=== PATIENT | male | born 1945 | race Caucasian/White ===

== ENCOUNTER 2020-06-07 11:34 | Outpatient (REF) | payer MEDICARE, SELFPAY ==
[2020-06-07 11:38] LABS: MANUAL DIFF FLAG NO
[2020-06-07 12:18] LABS: Basophils Absolute Auto 0.1 X10*3/uL (0.0-0.2); Basophils Percent Auto 1.4 % (0-2); Eosinophils Absolute Auto 0.4 X10*3/uL (0.0-0.4); Eosinophils Percent Auto 5.3 % (0-4); Hemoglobin 15.4 g/dl (14.0-18.0); Imm Gran Abs Auto 0.04 X10*3/uL (0.00-0.03); Imm Gran Pct Auto 0.6 % (0.0-0.4); Lymphocytes Absolute Auto 2.3 X10*3/uL (1.2-4.9); Lymphocytes Percent Auto 34.5 % (20-40); Mean Corpuscular HGB Conc 34.2 g/dl (31.0-36.0); Mean Corpuscular Hemoglobin 33.1 pg (27.0-33.0); Mean Corpuscular Volume 96.8 fL (80-98); Mean Platelet Volume 10.2 fL (9.4-12.4); Monocytes Absolute Auto 0.7 X10*3/uL (0.1-1.2); Monocytes Percent Auto 10.5 % (2-11); Neutrophils Absolute Auto 3.2 X10*3/uL (2.0-8.3); Neutrophils Percent Auto 47.7 % (45-73); Platelet Count 196 X10*3/uL (160-400); Red Blood Count 4.65 X10*6/uL (4.60-5.80); White Blood Count 6.7 X10*3/uL (4.8-10.8)
[2020-06-07 12:30] LABS: Glucose Urine UA NEG (NEG); Leukocyte Esterase Urine NEG (NEG); Nitrite Urine NEG (NEG); Specific Gravity - Urine 1.015 (1.005-1.025); Urine Blood NEG (NEG); Urine Ketones NEG (NEG); Urine Protein NEG (NEG-TRACE)
[2020-06-07 12:36] LABS: Appearance Urine CLEAR; Color Urine YELLOW
[2020-06-07 12:58] LABS: Alanine Aminotransferase 18 U/L (0-40); Albumin Level 3.9 g/dL (3.5-5.0); Alkaline Phosphatase 65 U/L (39-117); Anion Gap 11 (12-20); Aspartate Amino Transferase 29 U/L (5-37); Bilirubin Total 1.1 mg/dL (0.0-1.0); Blood Urea Nitrogen 5 mg/dL (9-16); Calcium 8.6 mg/dL (8.4-10.2); Carbon Dioxide 29 mmol/L (22-29); Chloride 104 mmol/L (96-108); Cholesterol 210 mg/dL; Estimated Glomerular Filt Rate > 60; Glucose Fasting 106 mg/dL (60-99); HDL Cholesterol 58 mg/dL; LDL Cholesterol Calculated 123 mg/dl; Potassium 3.9 mmol/L (3.3-5.1); Sodium 140 mmol/L (135-145); Total Protein 5.7 g/dL (6.5-8.0); Triglycerides 148 mg/dL
[2020-06-07 13:17] LABS: PSA,Total (Free>4and<10) 1.03 ng/mL (0.00-4.00)
[2020-06-07 13:21] LABS: Creatinine Urine 88.92 mg/dL; Microalbum/Creatinine Ratio Ur 14.6 ug/mg cr
[2020-06-07 14:45] LABS: Estimated Average Glucose 97 mg/dL
[2020-06-07 16:09] LABS: Reflex LDLD? No
== END 2020-06-07 11:35 | disposition home or self-care (01) ==
LOC: HO.LNP 11:34
PROVIDERS: Visit Provider Internal Medicine
DX: R73.03 Prediabetes (principal); E78.00 Pure hypercholesterolemia, unspecified; E53.8 Deficiency of other specified B group vitamins; R79.89 Other specified abnormal findings of blood chemistry; D69.6 Thrombocytopenia, unspecified; Z12.5 Encounter for screening for malignant neoplasm of prostate
CPT/HCPCS: 80053; 80061; 81003; 82043; 83036; 84153; 84154; 85025

== ENCOUNTER 2020-06-17 10:23 | Outpatient (REF) | payer MEDICARE, SELFPAY ==
[2020-06-17 12:25] LABS: Folate 16.5 ng/mL (> or = 4.0); Vitamin B12 659 pg/mL (200-900)
== END 2020-06-17 10:24 | disposition home or self-care (01) ==
LOC: HO.LNP 10:23
PROVIDERS: Visit Provider Internal Medicine
DX: E53.8 Deficiency of other specified B group vitamins (principal)
CPT/HCPCS: 82607; 82746

== ENCOUNTER 2021-06-09 11:33 | Outpatient (REF) | payer MEDICARE, SELFPAY ==
[2021-06-09 11:37] LABS: MANUAL DIFF FLAG NO
[2021-06-09 12:05] LABS: Appearance Urine CLEAR; Color Urine YELLOW; Glucose Urine UA NEG (NEG); Leukocyte Esterase Urine NEG (NEG); Nitrite Urine NEG (NEG); Specific Gravity - Urine 1.015 (1.005-1.025); Urine Blood NEG (NEG); Urine Ketones NEG (NEG); Urine Protein NEG (NEG-TRACE)
[2021-06-09 12:09] LABS: Basophils Absolute Auto 0.1 X10*3/uL (0.0-0.2); Eosinophils Absolute Auto 0.3 X10*3/uL (0.0-0.4); Eosinophils Percent Auto 3.7 % (0-4); Hematocrit 44.6 % (42.0-52.0); Hemoglobin 14.9 g/dl (14.0-18.0); Imm Gran Abs Auto 0.04 X10*3/uL (0.00-0.03); Imm Gran Pct Auto 0.5 % (0.0-0.4); Lymphocytes Percent Auto 35.3 % (20-40); Mean Corpuscular HGB Conc 33.4 g/dl (31.0-36.0); Mean Corpuscular Hemoglobin 32.3 pg (27.0-33.0); Mean Corpuscular Volume 96.7 fL (80.0-98.0); Monocytes Absolute Auto 0.9 X10*3/uL (0.1-1.2); Monocytes Percent Auto 9.9 % (2-11); Neutrophils Absolute Auto 4.3 x10*3/uL (2.0-8.3); Neutrophils Percent Auto 49.6 % (45-73); Platelet Count 175 X10*3/uL (160-400); Red Blood Count 4.61 X10*6/uL (4.60-5.80); Red Cell Distribution Width 11.9 % (11.0-16.0); White Blood Count 8.6 X10*3/uL (4.8-10.8)
[2021-06-09 12:20] LABS: Estimated Average Glucose 103 mg/dL; Hemoglobin A1c % 5.2 %
[2021-06-09 12:21] LABS: Alanine Aminotransferase 15 U/L (0-40); Albumin Level 3.7 g/dL (3.5-5.0); Alkaline Phosphatase 67 U/L (39-117); Anion Gap 10 (12-20); Aspartate Amino Transferase 27 U/L (5-37); Bilirubin Total 1.7 mg/dL (0.0-1.0); Blood Urea Nitrogen 7 mg/dL (9-16); Carbon Dioxide 28 mmol/L (22-29); Chloride 103 mmol/L (96-108); Cholesterol 180 mg/dL; Estimated Glomerular Filt Rate > 60; Glucose Fasting 113 mg/dL (60-99); HDL Cholesterol 63 mg/dL; LDL Cholesterol Calculated 96 mg/dl; Potassium 4.2 mmol/L (3.3-5.1); Sodium 137 mmol/L (135-145); Total Protein 5.7 g/dL (6.5-8.0); Triglycerides 105 mg/dL
[2021-06-09 12:42] LABS: Creatinine Urine 118.63 mg/dL; Microalbum/Creatinine Ratio Ur 29.5 ug/mg cr; PSA,Total (Free>4and<10) 1.12 ng/mL (0.00-4.00)
[2021-06-09 12:56] LABS: Reflex LDLD? No
[2021-06-09 13:05] LABS: Folate 15.9 ng/mL (> or = 4.0); Vitamin B12 887 pg/mL (200-900)
== END 2021-06-09 11:34 | disposition home or self-care (01) ==
LOC: HO.LNP 11:33
PROVIDERS: PCP Internal Medicine; Visit Provider Internal Medicine
DX: Z00.00 Encounter for general adult medical examination without abnormal findings (principal); Z12.5 Encounter for screening for malignant neoplasm of prostate; I10 Essential (primary) hypertension; E53.8 Deficiency of other specified B group vitamins; R79.89 Other specified abnormal findings of blood chemistry; E78.00 Pure hypercholesterolemia, unspecified; D69.6 Thrombocytopenia, unspecified; R73.03 Prediabetes
CPT/HCPCS: 80053; 80061; 81003; 82043; 82607; 82746; 83036; 84153; 85025

== ENCOUNTER → 2021-06-16 08:46 | Outpatient (BNVA) | payer MEDICARE, SELFPAY | PROVIDERS: PCP Internal Medicine; Referring Provider Internal Medicine; Visit Provider Internal Medicine | DX: I48.91 Unspecified atrial fibrillation (principal); I10 Essential (primary) hypertension; F10.10 Alcohol abuse, uncomplicated | CPT/HCPCS: 93005; 99202 ==

== ENCOUNTER → 2021-07-27 09:24 | Outpatient (REF) | payer MEDICARE, SELFPAY ==
--- NOTE | 2021-07-27 09:29 | CA_ITS ---
Transthoracic Echocardiogram Patient (Last, First, Middle): Darci Paez, Gender: Male Date of : 1945 Age: 76 Procedure Date: 07/27/2021 Procedure Type: Transthoracic Echocardiogram Location: OP Height: 167.64 cm Weight: 65.77 kg BSA: 1.74 m2 Heart Rate: bpm BP: 140 / 78 mmHg Automatic Head Sawyer: JS Kessler MD: Burke Felix MD Public Safety Officer: Remberto Hood MD Symptoms: I48.91 - Unspecified atrial fibrillation Study Quality: Fair ECG Rhythm: Atrial Fibrillation Conclusions: - 1. Moderate LV systolic dysfunction with LVEF of 35-40% 2. Mild mitral regurgitation and trivial aortic regurgitation 3. Mildly elevated right ventricular systolic pressure 4. Mild pericardial effusion more prominent near the right-sided chambers Findings Left Ventricle Normal left ventricular cavity size. There is normal left ventricular wall thickness. The left ventricular systolic function is moderately decreased. The visually estimated ejection fraction is between 35-40%. There is moderate global hypokinesis. Diastolic function is indeterminate on the basis of available data. Right Ventricle Normal right ventricular cavity size and systolic function. Atria The left atrium is normal in size. Interatrial shunt cannot be excluded. The right atrium is normal in size. Aortic Valve Normal aortic valve structure and function. There is no aortic valve stenosis. There is trace (trivial) aortic valve regurgitation. Mitral Valve There is mild anterior and posterior mitral leaflet thickening. There is mild mitral valve regurgitation. There is no mitral valve stenosis. Pulmonic Valve The pulmonic valve was not well visualized. Tricuspid Valve Likely normal tricuspid valve structure and function. There is mild tricuspid valve regurgitation. Normal right atrial pressure. Mild pulmonary hypertension is present. Great Vessels All visible segments of the aorta are normal in size. The pulmonary artery was not well visualized. Venous The inferior vena cava is normal in size and collapses greater than 50% with inspiration. Pericardium/Pleural There is a small loculated pericardial effusion overlying the right ventricle and right atrium. Prior Study Comparison No prior study available for comparison. Measurements 2D Linear Measurements IVSd: 1.09 0.6-0.9/0.6-1.0 cm LVIDd: 4.94 3.9-5.3/4.2-5.9 cm LVIDd Index: 2.84 2.4-3.2/2.2-3.1 cm/m2 LVIDs: 3.87 2.0-3.6 cm LVPWd: 1.08 0.7-1.1 cm LA Diam: 3.40 2.7-3.8/3.0-4.0 cm LAIDs Index: 1.95 1.5-2.3 cm/m2 LV Mass: 248.43 67-162/88-224 g LV Mass Index: 142.77 43-95/49-115 g/m2 LVOT Diam: 2.00 3.0+(-)1.3 cm 2D Systolic Function EF 4C: 32.50 >55% EF 2C: 37.30 >55% EF BiP: 35.70 >55% Aortic Valve AoV Pk Pérez: 0.93 AoV Mn Pérez: 0.67 AoV VTI: 0.15 AoV Pk Grad: 3.00 Aov Mn Grad: 2.00 SINGH Cont.VTI: 2.45 LVOT LVOT Pk Pérez: 0.67 LVOT Mn Pérez: 0.48 LVOT VTI: 0.12 LVOT Pk Grad: 2.00 LVOT Mn Grad: 1.00 LVOT Diam: 2.00 LVOT Area: 3.14 Right Ventricle TAPSE (mm): 18.20 TVS' Pérez: 8.38 Tricuspid Valve TR Pk Pérez: 3.07 TR Pk Grad: 38.00 RA Press: 3.00 RVSP: 41.00 Great Vessels Aorta Sinus of Valsalva: 3.53 2.0-3.[address] Ridge: 3.06 1.7-3.4 cm Ao Asc: 3.50 2.1-3.4 cm Ao Arch: 2.70 Updated in Other Vendor System with Status of Final Remberto Hood MD electronically signed on 07/27/2021 3:33:59 PM with status of Final
--- NOTE | 2021-07-27 09:29 | HM_ITS ---
Conclusion: 1. Patient was monitor for total period of 2 days and 10 hours 2. Baseline rhythm is atrial fibrillation with average heart of 81 beats per minute with adequate overall rate control 3. Total of 7 pauses noted, longest pause of 3.1 seconds 4. Total of 6945 PVCs accounting for 2.44% of total PVCs accounting for frequent PVCs 5. No patient reported events MTDD
== END ==
LOC: HO.CARD 09:24
PROVIDERS: Visit Provider Internal Medicine
DX: I48.91 Unspecified atrial fibrillation (principal)
CPT/HCPCS: 93242; 93306

== ENCOUNTER → 2021-08-16 09:05 | Outpatient (BNVA) | payer MEDICARE, SELFPAY | PROVIDERS: PCP Internal Medicine; Referring Provider Internal Medicine; Visit Provider Internal Medicine | DX: I48.19 Other persistent atrial fibrillation (principal); I42.9 Cardiomyopathy, unspecified; I10 Essential (primary) hypertension; F10.10 Alcohol abuse, uncomplicated | CPT/HCPCS: 99212 ==

== ENCOUNTER → 2021-08-22 08:37 | Outpatient (REF) | payer MEDICARE, SELFPAY ==
--- NOTE | ~2021-08-22 | NM_ITS ---
Lexiscan Myocardial perfusion study Indication: Atrial fibrillation, cardiomyopathy, assess for coronary disease and ischemia Technique: The patient was brought in for a Lexiscan perfusion study on 08/22/2021 and was injected 0.4 mg of Lexiscan intravenously. Within a minute of this injection 25 mCi of sestamibi was given intravenously. Images were obtained using the SPECT gamma camera interlaced with the gating device. Images were obtained in supine position. Resting perfusion study was performed on 08/23/2021. Patient was administered 25 mCi of sestamibi intravenously at rest. Images were then obtained in supine position. Total DLP 77mGy-cm. Images were processed with the software and compared side to side in short axis, horizontal long axis and vertical long axis views. Findings: Raw acquisition was reviewed. The stress perfusion study showed diminished tracer uptake in the distal part of anterior wall/anterior septum. There is also diminished tracer uptake along the inferior wall. With CT attenuation correction, there is improvement and hence these could all be artifactual. The gated study shows diminished LV systolic function with calculated LVEF of 41%. LV cavity is normal in size. The gated study shows diminished wall thickening/contractility in the distal part of anteroseptal wall. Resting study shows minimally reduced tracer uptake in the apex and adjacent anterior septum. Gating at rest reveals normal wall motion with ejection fraction at 51%. The findings are consistent with reversible distal anteroseptal defect. There is also improvement with CT attenuation correction, but gating shows regional hypokinesis. Hence somewhat inconclusive. NM/NM cardiolite stress test Impression: 1. Myocardial perfusion imaging study shows possible ischemia in the distal anteroseptal wall. 2. Gated LVEF is 41% during stress and 51% during rest. 3. Transient ischemic dilatation not present. EKG component of the test reported separately.
--- NOTE | 2021-08-22 08:45 | CA_ITS ---
Acquisition Time: 2021-08-22 09:06:54 Total Exercise Time: 00:02:00 Test Indications: Abnormal ECG AFIB Medications: ELIQUIS LISINOPRIL METOPROLOL Protocol: LEXISCAN Max HR: 125 BPM 88% of Pred: 142 BPM Max BP: 158/098 mmHG Max Work Load: 1.0 METS Pharmacological stress test with Lexiscan injection, while sitting and kicking his legs, without anginal symptoms, with isolated PVCs, with normotensive response to injection, with nondiagnostic EKG for ischemia. Nuclear images pending. Test reviewed with Dr Hood. Referred By: Burke Felix Overread By: RICKI RIDER
[2021-08-22 15:28] LABS: Anion Gap 16 (12-20); Blood Urea Nitrogen 8 mg/dL (9-16); Calcium 9.6 mg/dL (8.4-10.2); Carbon Dioxide 24 mmol/L (22-29); Chloride 105 mmol/L (96-108); Estimated Glomerular Filt Rate > 60; Glucose Random 108 mg/dL (60-115); Potassium 5.1 mmol/L (3.3-5.1); Sodium 140 mmol/L (135-145)
== END ==
LOC: HO.CARD 08:37
PROVIDERS: Visit Provider Internal Medicine
DX: I42.9 Cardiomyopathy, unspecified (principal); I10 Essential (primary) hypertension
CPT/HCPCS: 36415; 78452; 80048; 93017; A9500; J0280; J2785

== ENCOUNTER → 2021-09-20 10:56 | Outpatient (BNVA) | payer MEDICARE, SELFPAY | PROVIDERS: PCP Internal Medicine; Referring Provider Internal Medicine; Visit Provider Internal Medicine | DX: I48.19 Other persistent atrial fibrillation (principal); I42.9 Cardiomyopathy, unspecified; I10 Essential (primary) hypertension; F10.10 Alcohol abuse, uncomplicated; Z79.01 Long term (current) use of anticoagulants; Z79.899 Other long term (current) drug therapy | CPT/HCPCS: 99212 ==

== ENCOUNTER 2021-10-11 08:49 | Outpatient (REF) | payer MEDICARE, SELFPAY ==
[2021-10-11 10:04] LABS: Hematocrit 47.8 % (42.0-52.0); Hemoglobin 15.9 g/dl (14.0-18.0); Mean Corpuscular HGB Conc 33.3 g/dl (31.0-36.0); Mean Corpuscular Hemoglobin 30.7 pg (27.0-33.0); Mean Corpuscular Volume 92.3 fL (80.0-98.0); Mean Platelet Volume 9.6 fL (9.4-12.4); Platelet Count 197 X10*3/uL (160-400); Red Blood Count 5.18 X10*6/uL (4.60-5.80); White Blood Count 9.9 X10*3/uL (4.8-10.8)
[2021-10-11 10:32] LABS: Anion Gap 13 (12-20); Blood Urea Nitrogen 9 mg/dL (9-16); Calcium 9.1 mg/dL (8.4-10.2); Carbon Dioxide 27 mmol/L (22-29); Chloride 101 mmol/L (96-108); Estimated Glomerular Filt Rate > 60; Glucose Random 108 mg/dL (60-115); Potassium 4.6 mmol/L (3.3-5.1); Sodium 136 mmol/L (135-145)
[2021-10-11 10:54] LABS: INTERNATIONAL NORM RATIO 1.2 (0.9-1.1); Prothrombin Time 13.2 SEC (9.9-13.0)
== END 2021-10-11 08:50 | disposition home or self-care (01) ==
LOC: HO.LAB 08:49
PROVIDERS: PCP Internal Medicine; Visit Provider Internal Medicine
DX: I42.9 Cardiomyopathy, unspecified (principal)
CPT/HCPCS: 36415; 80048; 85027; 85610

== ENCOUNTER → 2021-11-09 12:44 | Outpatient (BNVA) | payer MEDICARE, SELFPAY | PROVIDERS: PCP Internal Medicine; Referring Provider Internal Medicine; Visit Provider Nurse Practitioner Family | DX: I42.9 Cardiomyopathy, unspecified (principal); I48.19 Other persistent atrial fibrillation; I10 Essential (primary) hypertension; F10.10 Alcohol abuse, uncomplicated; Z79.01 Long term (current) use of anticoagulants; Z79.899 Other long term (current) drug therapy; Z98.890 Other specified postprocedural states | CPT/HCPCS: 99212 ==

== ENCOUNTER 2021-11-22 20:53 | Observation (INO) | payer MEDICARE, SELFPAY ==
--- NOTE | ~2021-11-22 | XR_ITS ---
EXAMINATION: XR CHEST CLINICAL INFORMATION: Seizure activity. COMPARISON: Chest x-ray 02/03/2016 TECHNIQUE: Frontal portable view of the chest was obtained. 2148 hours FINDINGS: No significant abnormality is noted involving the heart, lungs, mediastinum, bony thorax or soft tissues. XR/XR chest 1V IMPRESSION: Unremarkable examination.
--- NOTE | ~2021-11-22 | CT_ITS ---
EXAMINATION: CT head/brain wo con CLINICAL INFORMATION: Seizure activity COMPARISON: MRI of the brain without contrast 08/18/2008 TECHNIQUE: Contiguous axial imaging was performed from the skull base to vertex without intravenous administration of contrast. This CT examination was performed using dose optimization techniques as appropriate, variously including the following: *Automated exposure control *Adjustment of mA and/or kV according to patient size (this includes techniques or standardized protocols for targeted exams where dose is matched to indication/reason for exam; i.e. extremities or head) *Use of iterative reconstruction technique DLP: 703 mGy-cm FINDINGS: No acute osseous or soft tissue abnormality. Mild scattered paranasal sinus mucosal thickening. There is no evidence of acute intracranial hemorrhage or territorial infarction. No abnormal mass effect or midline shift is seen. [place] to white matter differentiation is well preserved. No extra-axial fluid collections are identified. No hydrocephalus. No significant volume loss. Patchy periventricular and deep white matter hypoattenuation is consistent with moderate small vessel ischemic changes. CT/CT head/brain wo con IMPRESSION: No acute intracranial abnormality including hemorrhage, mass effect, hydrocephalus, or acute territorial edematous infarction.
[2021-11-22 20:58] VITALS: BP 151/102; PULSE 83; RESP 15; TEMP 35.8; O2SAT 98; BMI 24.7
[2021-11-22 21:21] LABS: MANUAL DIFF FLAG NO
[2021-11-22 21:22] LABS: Basophils Absolute Auto 0.1 X10*3/uL (0.0-0.2); Basophils Percent Auto 0.8 % (0-2); Eosinophils Absolute Auto 0.3 X10*3/uL (0.0-0.4); Eosinophils Percent Auto 2.7 % (0-4); Hematocrit 44.2 % (42.0-52.0); Hemoglobin 15.2 g/dl (14.0-18.0); Imm Gran Abs Auto 0.04 X10*3/uL (0.00-0.03); Imm Gran Pct Auto 0.4 % (0.0-0.4); Lymphocytes Absolute Auto 2.1 X10*3/uL (1.2-4.9); Lymphocytes Percent Auto 20.1 % (20-40); Mean Corpuscular HGB Conc 34.4 g/dl (31.0-36.0); Mean Corpuscular Hemoglobin 31.1 pg (27.0-33.0); Mean Corpuscular Volume 90.6 fL (80.0-98.0); Mean Platelet Volume 9.4 fL (9.4-12.4); Monocytes Absolute Auto 1.3 X10*3/uL (0.1-1.2); Neutrophils Absolute Auto 6.7 x10*3/uL (2.0-8.3); Platelet Count 185 X10*3/uL (160-400); Red Blood Count 4.88 X10*6/uL (4.60-5.80); White Blood Count 10.4 X10*3/uL (4.8-10.8)
[2021-11-22 21:39] LABS: Alanine Aminotransferase 12 U/L (0-40); Albumin Level 4.1 g/dL (3.5-5.0); Alkaline Phosphatase 61 U/L (39-117); Anion Gap 16 (12-20); Aspartate Amino Transferase 21 U/L (5-37); Bilirubin Total 1.7 mg/dL (0.0-1.0); Blood Urea Nitrogen 7 mg/dL (9-16); Calcium 8.6 mg/dL (8.4-10.2); Carbon Dioxide 21 mmol/L (22-29); Chloride 103 mmol/L (96-108); Creatinine Clr Calc Pharmacy 48.1; Estimated Glomerular Filt Rate > 60; Glucose Random 118 mg/dL (60-115); Potassium 4.2 mmol/L (3.3-5.1); Sodium 136 mmol/L (135-145); Total Protein 6.1 g/dL (6.5-8.0)
--- NOTE | 2021-11-22 21:40 | ECG_ITS ---
Test Reason : SEIZURE Blood Pressure : / mmHG Vent. Rate : 095 BPM Atrial Rate : 000 BPM P-R Int : 000 ms QRS Dur : 084 ms QT Int : 314 ms P-R-T Axes : 000 -27 022 degrees QTc Int : 394 ms Atrial fibrillation Anteroseptal infarct (cited on or before 28-JUL-2008) Abnormal ECG When compared with ECG of 28-JUL-2008 11:06, Atrial fibrillation has replaced Sinus rhythm Vent. rate has increased BY 49 BPM Referred By: Rosina Eric Electronically Signed By:NEIDA JAIMES
[2021-11-22 21:41] VITALS: BP 160/112; PULSE 97; RESP 26; O2SAT 98
--- NOTE | 2021-11-22 21:58 | ED_ITS ---
HPI - Syncope General Chief Complaint: Seizure Stated Complaint: seizures Dr Scott called Time Seen by Provider: 11/22/21 21:39 Source: patient and family Mode of arrival: ambulatory Limitations: other (mild dementia) History of Present Illness HPI narrative: 76 yo male with hx of prior ETOH abuse, mild dementia, HTN, PAF on eliquis, cardiomyopathy was eating ice cream with his prior to arrival tonight when he felt a little dizzy and he slumped forwards. The states he wasn't responsive and his arms were stiff and shaking slightly no other movements, no incontinence no tongue biting. He felt his symptoms coming on. notes over the past few days he has had a headache and taking tylenol but denies fevers. MD complaint: loss of consciousness and collapsed Onset (ago): minute(s) (just prior to arrival ) Duration of episode: 1 -: minutes(s) Description of event: focal shaking Prodromal symptoms: lightheaded Witnessed: Yes - by Bystander Context: at rest Injuries sustained associated with event: none Current symptoms: back to baseline Treatments prior to arrival: none Related Data Home Medications Medication Instructions Recorded Confirmed cyanocobalamin (vitamin B-12) 1,000 mcg PO DAILY 06/16/21 11/09/21 1,000 mcg capsule folic acid 800 mcg tablet 0.8 mg PO DAILY 06/16/21 11/09/21 metoprolol succinate 50 mg 50 mg PO DAILY 06/16/21 11/09/21 tablet,extended release 24 hr Previous Rx's Medication Instructions Recorded lisinopril 20 mg tablet 20 mg PO DAILY #90 tabs 08/16/21 apixaban 5 mg tablet (Eliquis) 5 mg PO BID #60 tabs 09/05/21 Allergies Allergy/AdvReac Type Severity Reaction Status Date / Time No Known Allergies Allergy Verified 11/09/21 13:11 [No Known Allergies*] Review of Systems Review of Systems: Constitutional : No Fever, No Chills, No Fatigue ENT/Mouth : No sore throat, No Rhinorrhea Eyes: No Eye Pain, No Swelling, No Redness Cardiovascular : No Chest Pain, No SOB, No Dyspnea on Exertion Respiratory : No Cough, No Sputum Gastrointestinal : No Nausea, No Vomiting, No Diarrhea, No abdominal Pain Genitourinary : No Dysuria, No Urinary Frequency, No Hematuria, Musculoskeletal : No joint pain, No Myalgias, No Joint Swelling Skin : No Skin Lesions, No rash Neuro : No Weakness, No Numbness, pos Dizziness, positive Headache, pos loss of consciousness Psych : No Anxiety/Panic, No Depression Heme/Lymph: No Bruising, No Bleeding,No Lymphadenopathy Endocrine : No Polyuria, No Polydipsia All other systems reviewed and are negative [facility] Past Medical History Medical History Alcohol abuse Atrial fibrillation, new onset Cardiomyopathy Essential hypertension Persistent atrial fibrillation Surgical History History of appendectomy History of cardiac catheterization History of tonsillectomy Family History Family History Father No problems noted. Mother No problems noted. Social History Social History Alcohol intake: current Alcohol type: beer Patient Tobacco Use Status: Never used Tobacco Advance Directives: No Advance Directives Information Provided: No Physical Exam Vital Signs: Vital Signs: Last Vital Signs Temp 97.9 F 11/23/21 00:19 Pulse 86 11/23/21 00:19 Resp 14 11/23/21 00:19 BP 162/93 H 11/23/21 00:19 Pulse Ox 99 11/23/21 00:19 O2 Del Method 11/23/21 00:19 BMI result Body Mass Index 24.7 Appearance: Alert. Oriented X2 (time) at baseline. No acute distress. Eyes: Pupils equal, round and reactive to light. ENT: Pharynx normal. Neck: Normal inspection. Neck supple. CVS: irregular heart rate and rhythm. Pulses normal. Respiratory: No respiratory distress. Breath sounds normal. Abdomen: Soft and non-tender. Skin: Skin warm and dry. Normal skin color. Normal skin turgor. Extremities: No lower extremity edema. No calf ttp Neuro: Oriented X 2 (at baseline). No motor deficit. No sensory deficit. Course Course Course Narrative: given lactic acidosis could have had a seizure repeat trop and lactic acidosis pending repeat lactic pending, trop under delta CT head negative will admit for seizure vs syncope MDM - Syncope MDM Narrative Medical decision making narrative: 76 yo male with hx of prior ETOH abuse, mild dementia, HTN, PAF on eliquis, cardiomyopathy here wtih episode of loss of consciousness with preceding symptom of dizziness he does report a headache for the past few days. No trauma reported during event. He has not had chest pain/SOB. At this time he did not have full GTC just stiffening and jerking of the arms but not rhythmic he also did not have incontinence/tongue biting or postictal state. At this time will obtain CT head for ICH, EKG, labs, UA/CXR. Possible seizure vs syncope. Dispo per results and findings. Lab Data Result diagrams: 11/22/21 21:11 11/22/21 21:11 Labs: Lab Results 11/22/21 11/22/21 11/22/21 Range/Units 21:11 21:11 21:11 WBC 10.4 (4.8-10.8) X10*3/uL RBC 4.88 (4.60-5.80) X10*6/uL Hgb 15.2 (14.0-18.0) g/dl Hct 44.2 (42.0-52.0) % MCV 90.6 (80.0-98.0) fL MCH 31.1 (27.0-33.0) pg MCHC 34.4 (31.0-36.0) g/dl RDW 13.0 (11.0-16.0) % Plt Count 185 (160-400) X10*3/uL MPV 9.4 (9.4-12.4) fL Immature Gran % (Auto) 0.4 (0.0-0.4) % Neut % (Auto) 64.0 (45-73) % Lymph % (Auto) 20.1 (20-40) % [place] % (Auto) 12.0 H (2-11) % Eos % (Auto) 2.7 (0-4) % Baso % (Auto) 0.8 (0-2) % Lymph # (Auto) 2.1 (1.2-4.9) X10*3/uL [place] # (Auto) 1.3 H (0.1-1.2) X10*3/uL Eos # (Auto) 0.3 (0.0-0.4) X10*3/uL Baso # (Auto) 0.1 (0.0-0.2) X10*3/uL Abs Immat Gran (auto) 0.04 H (0.00-0.03) X10*3/uL Absolute Neuts (auto) 6.7 (2.0-8.3) x10*3/uL Absolute Nucleated RBC 0.000 (0.0-0.012) X10*3/uL Nucleated RBC % (auto) 0.0 (0.0-0.2) /100WBC PT (10.0-13.1) SEC INR (0.9-1.1) Sodium 136 (135-145) mmol/L Potassium 4.2 (3.3-5.1) mmol/L Chloride 103 (96-108) mmol/L Carbon Dioxide 21 L (22-29) mmol/L Anion Gap 16 (12-20) BUN 7 L (9-16) mg/dL Creatinine 1.10 (0.5-1.4) mg/dL Estim Creat Clear Calc 48.1 Estimated GFR > 60 Random Glucose 118 H (60-115) mg/dL Lactic Acid (0.5-2.0) mmol/L Lactic Acid F/U @ 2Hr (0.5-2.0) mmol/L Calcium 8.6 (8.4-10.2) mg/dL Magnesium 1.8 (1.6-2.6) mg/dL Total Bilirubin 1.7 H (0.0-1.0) mg/dL AST 21 (5-37) U/L ALT 12 (0-40) U/L Alkaline Phosphatase 61 (39-117) U/L Troponin I High Sens 6.8 (<3.5-35.0) ng/L Total Protein 6.1 L (6.5-8.0) g/dL Albumin 4.1 (3.5-5.0) g/dL Urine Color Urine Appearance Urine pH (5.0-8.0) Ur Specific [place] (1.005-1.025) Urine Protein (NEG-TRACE) MG/DL Urine Glucose (UA) (NEG) MG/DL Urine Ketones (NEG) MG/DL Urine Blood (NEG) Urine Nitrite (NEG) Ur Leukocyte Esterase (NEG) Urine Opiates Screen (Not Detect) Urine Fentanyl Screen (Not Detect) Ur Barbiturates Screen (Not Detect) Ur Phencyclidine Scrn (Not Detect) Ur Amphetamines Screen (Not Detect) U Benzodiazepines Scrn (Not Detect) Urine Cocaine Screen (Not Detect) U Marijuana (THC) Screen (Not Detect) Ethyl Alcohol < 10 mg/dL 11/22/21 11/22/21 11/22/21 Range/Units 22:18 22:18 22:50 WBC (4.8-10.8) X10*3/uL RBC (4.60-5.80) X10*6/uL Hgb (14.0-18.0) g/dl Hct (42.0-52.0) % MCV (80.0-98.0) fL MCH (27.0-33.0) pg MCHC (31.0-36.0) g/dl RDW (11.0-16.0) % Plt Count (160-400) X10*3/uL MPV (9.4-12.4) fL Immature Gran % (Auto) (0.0-0.4) % Neut % (Auto) (45-73) % Lymph % (Auto) (20-40) % [place] % (Auto) (2-11) % Eos % (Auto) (0-4) % Baso % (Auto) (0-2) % Lymph # (Auto) (1.2-4.9) X10*3/uL [place] # (Auto) (0.1-1.2) X10*3/uL Eos # (Auto) (0.0-0.4) X10*3/uL Baso # (Auto) (0.0-0.2) X10*3/uL Abs Immat Gran (auto) (0.00-0.03) X10*3/uL Absolute Neuts (auto) (2.0-8.3) x10*3/uL Absolute Nucleated RBC (0.0-0.012) X10*3/uL Nucleated RBC % (auto) (0.0-0.2) /100WBC PT 18.8 H (10.0-13.1) SEC INR 1.6 H (0.9-1.1) Sodium (135-145) mmol/L Potassium (3.3-5.1) mmol/L Chloride (96-108) mmol/L Carbon Dioxide (22-29) mmol/L Anion Gap (12-20) BUN (9-16) mg/dL Creatinine (0.5-1.4) mg/dL Estim Creat Clear Calc Estimated GFR Random Glucose (60-115) mg/dL Lactic Acid 2.1 H* (0.5-2.0) mmol/L Lactic Acid F/U @ 2Hr (0.5-2.0) mmol/L Calcium (8.4-10.2) mg/dL Magnesium (1.6-2.6) mg/dL Total Bilirubin (0.0-1.0) mg/dL AST (5-37) U/L ALT (0-40) U/L Alkaline Phosphatase (39-117) U/L Troponin I High Sens (<3.5-35.0) ng/L Total Protein (6.5-8.0) g/dL Albumin (3.5-5.0) g/dL Urine Color Urine Appearance Urine pH (5.0-8.0) Ur Specific [place] (1.005-1.025) Urine Protein (NEG-TRACE) MG/DL Urine Glucose (UA) (NEG) MG/DL Urine Ketones (NEG) MG/DL Urine Blood (NEG) Urine Nitrite (NEG) Ur Leukocyte Esterase (NEG) Urine Opiates Screen Not Detected (Not Detect) Urine Fentanyl Screen Not Detected (Not Detect) Ur Barbiturates Screen Not Detected (Not Detect) Ur Phencyclidine Scrn Not Detected (Not Detect) Ur Amphetamines Screen Not Detected (Not Detect) U Benzodiazepines Scrn Not Detected (Not Detect) Urine Cocaine Screen Not Detected (Not Detect) U Marijuana (THC) Screen Not Detected (Not Detect) Ethyl Alcohol mg/dL 11/22/21 11/23/21 11/23/21 Range/Units 22:51 00:35 00:35 WBC (4.8-10.8) X10*3/uL RBC (4.60-5.80) X10*6/uL Hgb (14.0-18.0) g/dl Hct (42.0-52.0) % MCV (80.0-98.0) fL MCH (27.0-33.0) pg MCHC (31.0-36.0) g/dl RDW (11.0-16.0) % Plt Count (160-400) X10*3/uL MPV (9.4-12.4) fL Immature Gran % (Auto) (0.0-0.4) % Neut % (Auto) (45-73) % Lymph % (Auto) (20-40) % [place] % (Auto) (2-11) % Eos % (Auto) (0-4) % Baso % (Auto) (0-2) % Lymph # (Auto) (1.2-4.9) X10*3/uL [place] # (Auto) (0.1-1.2) X10*3/uL Eos # (Auto) (0.0-0.4) X10*3/uL Baso # (Auto) (0.0-0.2) X10*3/uL Abs Immat Gran (auto) (0.00-0.03) X10*3/uL Absolute Neuts (auto) (2.0-8.3) x10*3/uL Absolute Nucleated RBC (0.0-0.012) X10*3/uL Nucleated RBC % (auto) (0.0-0.2) /100WBC PT (10.0-13.1) SEC INR (0.9-1.1) Sodium (135-145) mmol/L Potassium (3.3-5.1) mmol/L Chloride (96-108) mmol/L Carbon Dioxide (22-29) mmol/L Anion Gap (12-20) BUN (9-16) mg/dL Creatinine (0.5-1.4) mg/dL Estim Creat Clear Calc Estimated GFR Random Glucose (60-115) mg/dL Lactic Acid (0.5-2.0) mmol/L Lactic Acid F/U @ 2Hr 1.6 (0.5-2.0) mmol/L Calcium (8.4-10.2) mg/dL Magnesium (1.6-2.6) mg/dL Total Bilirubin (0.0-1.0) mg/dL AST (5-37) U/L ALT (0-40) U/L Alkaline Phosphatase (39-117) U/L Troponin I High Sens 8.9 (<3.5-35.0) ng/L Total Protein (6.5-8.0) g/dL Albumin (3.5-5.0) g/dL Urine Color YELLOW Urine Appearance CLEAR Urine pH 6.0 (5.0-8.0) Ur Specific [place] <= 1.005 (1.005-1.025) Urine Protein NEG (NEG-TRACE) MG/DL Urine Glucose (UA) NEG (NEG) MG/DL Urine Ketones NEG (NEG) MG/DL Urine Blood NEG (NEG) Urine Nitrite NEG (NEG) Ur Leukocyte Esterase NEG (NEG) Urine Opiates Screen (Not Detect) Urine Fentanyl Screen (Not Detect) Ur Barbiturates Screen (Not Detect) Ur Phencyclidine Scrn (Not Detect) Ur Amphetamines Screen (Not Detect) U Benzodiazepines Scrn (Not Detect) Urine Cocaine Screen (Not Detect) U Marijuana (THC) Screen (Not Detect) Ethyl Alcohol mg/dL ECG Data Attestation: I personally reviewed and interpreted this ECG as follows: ECG interpretation date: 11/22/21 ECG interpretation time: 22:10 Interpretation: Rate: 95 Rhythm: afib Kramer: left Normal QRS complex. ST T wave : normal no KATE qTC: normal prior studies: no acute ischemia The study has been interpreted contemporaneously by me. . Discharge Plan Discharge Clinical Impression: Acidosis, lactic, Syncope Patient Disposition: Admitted As Inpatient Prescriptions: No Action Eliquis 5 mg tablet 5 mg PO BID Qty: 60 5RF metoprolol succinate 50 mg tablet extended release 24 hr 50 mg PO DAILY folic acid 800 mcg tablet 0.8 mg PO DAILY cyanocobalamin (vitamin B-12) 1,000 mcg capsule 1,000 mcg PO DAILY lisinopril 20 mg tablet 20 mg PO DAILY Qty: 90 3RF
[2021-11-22 22:25] LABS: Ethanol < 10 mg/dL; Magnesium 1.8 mg/dL (1.6-2.6)
[2021-11-22 22:34] LABS: Troponin-I High Sensitivity 6.8 ng/L (<3.5-35.0)
[2021-11-22 22:35] VITALS: BP 157/108; PULSE 67; RESP 15; TEMP 36.9; O2SAT 99
[2021-11-22 22:56] LABS: Lactic Acid 2.1 mmol/L (0.5-2.0)
--- NOTE | 2021-11-22 22:56 | PC.NURSE ---
lactic acid of 2.1 reported to DAMON Jules
[2021-11-22 23:13] LABS: Amphetamine Screen Urine Not Detected (Not Detect); Barbiturates, Urine Not Detected (Not Detect); Benzodiazepines Screen Urine Not Detected (Not Detect); Cannabinoid Screen Urine Not Detected (Not Detect); Cocaine Screen Urine Not Detected (Not Detect); Fentanyl, urine Not Detected (Not Detect); Opiate Screen Urine Not Detected (Not Detect); Phencyclidine Screen Urine Not Detected (Not Detect)
[2021-11-22 23:13] LABS: INTERNATIONAL NORM RATIO 1.6 (0.9-1.1); Prothrombin Time 18.8 SEC (10.0-13.1)
[2021-11-22 23:31] LABS: Appearance Urine CLEAR; Color Urine YELLOW; Glucose Urine UA NEG (NEG); Leukocyte Esterase Urine NEG (NEG); Nitrite Urine NEG (NEG); Specific Gravity - Urine <= 1.005 (1.005-1.025); Urine Blood NEG (NEG); Urine Ketones NEG (NEG); Urine Protein NEG (NEG-TRACE)
[2021-11-22] MEDS: 0.9 % Sodium Chloride 500 ML IV (23:51)
[2021-11-23] VITALS (7 sets, daily range): BP systolic 151–171; BP diastolic 93–108; PULSE 72–93; RESP 14–20; TEMP 36.6–36.7; O2SAT 96–99
[2021-11-23 00:22] LABS: Reflex Lactate? Lactic Acid Added
[2021-11-23 01:50] LABS: ~Lactic Acid-LAB USE ONLY 1.6 mmol/L (0.5-2.0)
[2021-11-23 02:01] LABS: Troponin-I High Sensitivity 8.9 ng/L (<3.5-35.0)
[2021-11-23 02:40] LABS: COVID-19 Test Negative (Negative)
[2021-11-23] MEDS: Melatonin 3 MG TABLET 6 MG PO (02:55)
--- NOTE | 2021-11-23 08:52 | PHA.MEDREC ---
Pharmacy Consult ? Medication Reconciliation Pharmacy has completed the medication reconciliation. Patient unsure about home medications, called Davina ([phone]) who clarified home medications and dosing.
--- NOTE | 2021-11-23 09:32 | PC.NURSE ---
pt sitting on dge of bed eating bkfst. Son at bedside. Alert, pleasantly confused
[2021-11-23] MEDS: 0.9 % Sodium Chloride Flush 3 ML SYRINGE IVFLUSH (10:39)
--- NOTE | 2021-11-23 10:58 | PM.IMHP ---
History of Present Illness Date of Service: 11/23/21 Attending physician on admission: Zhang Salas Chief Complaint: syncope Patient with history of alcohol abuse (last drink 2 months ago), dementia, paroxysmal atrial fibrillation on eliquis, hypertension, and cardiomyopathy presented to the ED last night following a brief period of unconsciousness. His states they were eating ice cream when the patient slumped forward with his eyes rolling back with period of unconsciousness lasting several seconds. The patient does not recall the episode but has memory impairment at baseline secondary to dementia. His states the patient's limbs and upper body stiffened with slight shaking of the hands. There was no post ictal phase, incontinence, or tongue biting. No history of seizures. He denies having had similar episodes in the past and there has been no recurrence since presentation. He is feeling well currently in exam room with his son. Denies any palpitations, chest pain, sob, weakness, paresthesias. He follows with Dr. Felix in cardiology. Has not had any alcohol since initiation of eliquis. Had holter monitor in 08/05 with persistent afib and several long pauses up to 3.1sec and frequent PVCs. Last echo with EF 35-40%, no significnat valvular disease. In ER, lactic acid initially elevated at 2.1, improved to 1.6. Bilirubin 1.7, liver enzymes otherwise normal. Hematology and chemistries otherwise unremarkable. Head CT negative for actue intracranial abnormality. Chest xray unremarkable. Blood pressure have been slightly elevated, but he is hemodynamically stable. Review of Systems Review of Systems: General: No fevers, malaise, unintentional weight loss HEENT: No blurred vision or diplopia Cardiovascular: No chest pain, palpitations, or leg edema Respiratory: No shortness of breath, wheezing, cough GI: No abdominal pain, nausea, vomiting, diarrhea, constipation, melena, hematochezia : No dysuria or increased frequency Neuro: +syncope. No headaches, weakness, paresthesia, lightheadedness Skin: No rashes or lesions [facility] Medical History (Updated 11/23/21 @ 15:08 by JAIMIE Bonilla) Alcohol abuse Atrial fibrillation, new onset Cardiomyopathy Dementia Essential hypertension Persistent atrial fibrillation Family History Father No problems noted. Mother No problems noted. Surgical History History of appendectomy History of cardiac catheterization History of tonsillectomy Social History (Updated 11/23/21 @ 11:23 by JAIMIE Bonilla) Alcohol intake: former Patient Tobacco Use Status: Never used Tobacco Advance Directives: No Advance Directives Information Provided: No Meds Allergies Allergy/AdvReac Type Severity Reaction Status Date / Time No Known Allergies Allergy Verified 11/09/21 13:11 [No Known Allergies*] Active Medications: Current Medications Sodium Chloride (0.9 % Sodium Chloride Flush 3 Ml Syringe) 3 ml IVFLUSH [facility] Last Admin: 11/23/21 10:39 Dose: 3 ml Home Medications Medication Instructions Recorded Confirmed Last Taken Type acetaminophen 325 mg tablet 650 mg PO Q6H PRN Headache 11/23/21 11/23/21 Unknown History (Tylenol) apixaban 5 mg tablet (Eliquis) 1 tab PO BID 11/23/21 11/23/21 11/22/21 History cyanocobalamin (vitamin B-12) 1,000 mcg PO DAILY 11/23/21 11/23/21 11/22/21 History 1,000 mcg tablet lisinopril 20 mg tablet 2 tab PO DAILY 11/23/21 11/23/21 11/22/21 History metoprolol succinate 50 mg 1 tab PO DAILY 11/23/21 11/23/21 11/22/21 History tablet,extended release 24 hr Physical Exam Vital Signs and Narrative: Vital Signs: Last Vital Signs Temp 98.1 F 11/23/21 10:35 Pulse 85 11/23/21 10:47 Resp 20 11/23/21 10:35 BP 151/99 H 11/23/21 10:47 Pulse Ox 96 11/23/21 10:35 O2 Del Method 11/23/21 10:35 BMI result Body Mass Index 24.7 Constitutional - Awake and Alert, No apparent distress Eyes - PERRLA, EOMI Cardiovascular - S1S2, Irregularly irregular, normal rate, No edema Respiratory - Normal lung expansion, Normal respiratory effort, No respiratory distress, CTA bilaterally Gastrointestinal - NT / ND; +BS; No rebound or guarding Extremities - no calf tenderness bilaterally, no swelling Musculoskeletal - Normal inspection, normal ROM Skin - Warm/Dry Neurological - Alert & oriented x2, disoriented to time, CN II-XII in tact, 5/5 strength BUE and BLE Psychological - Appropriate affect Results Labs CBC and Chem 7: 11/22/21 21:11 11/22/21 21:11 Labs: Laboratory Results - last 24 hr 11/22/21 11/22/21 11/22/21 21:11 21:11 22:18 MCV 90.6 MCH 31.1 MCHC 34.4 RDW 13.0 Plt Count 185 MPV 9.4 Immature Gran % (Auto) 0.4 Neut % (Auto) 64.0 Lymph % (Auto) 20.1 [place] % (Auto) 12.0 H Eos % (Auto) 2.7 Baso % (Auto) 0.8 Lymph # (Auto) 2.1 [place] # (Auto) 1.3 H Eos # (Auto) 0.3 Baso # (Auto) 0.1 Abs Immat Gran (auto) 0.04 H Absolute Neuts (auto) 6.7 Absolute Nucleated RBC 0.000 Nucleated RBC % (auto) 0.0 PT 18.8 H INR 1.6 H Anion Gap 16 Estim Creat Clear Calc 48.1 Estimated GFR > 60 Random Glucose 118 H Lactic Acid Lactic Acid F/U @ 2Hr Calcium 8.6 Magnesium 1.8 Total Bilirubin 1.7 H AST 21 ALT 12 Alkaline Phosphatase 61 Total Protein 6.1 L Albumin 4.1 Urine Color Urine Appearance Urine pH Ur Specific [place] Urine Protein Urine Glucose (UA) Urine Ketones Urine Blood Urine Nitrite Ur Leukocyte Esterase Urine Opiates Screen Urine Fentanyl Screen Ur Barbiturates Screen Ur Phencyclidine Scrn Ur Amphetamines Screen U Benzodiazepines Scrn Urine Cocaine Screen U Marijuana (THC) Screen Ethyl Alcohol < 10 COVID-19 ([facility]) COVID-19 Clin Com 11/22/21 11/22/21 11/22/21 22:18 22:50 22:51 MCV MCH MCHC RDW Plt Count MPV Immature Gran % (Auto) Neut % (Auto) Lymph % (Auto) [place] % (Auto) Eos % (Auto) Baso % (Auto) Lymph # (Auto) [place] # (Auto) Eos # (Auto) Baso # (Auto) Abs Immat Gran (auto) Absolute Neuts (auto) Absolute Nucleated RBC Nucleated RBC % (auto) PT INR Anion Gap Estim Creat Clear Calc Estimated GFR Random Glucose Lactic Acid 2.1 H* Lactic Acid F/U @ 2Hr Calcium Magnesium Total Bilirubin AST ALT Alkaline Phosphatase Total Protein Albumin Urine Color YELLOW Urine Appearance CLEAR Urine pH 6.0 Ur Specific [place] <= 1.005 Urine Protein NEG Urine Glucose (UA) NEG Urine Ketones NEG Urine Blood NEG Urine Nitrite NEG Ur Leukocyte Esterase NEG Urine Opiates Screen Not Detected Urine Fentanyl Screen Not Detected Ur Barbiturates Screen Not Detected Ur Phencyclidine Scrn Not Detected Ur Amphetamines Screen Not Detected U Benzodiazepines Scrn Not Detected Urine Cocaine Screen Not Detected U Marijuana (THC) Screen Not Detected Ethyl Alcohol COVID-19 (GOPAL) COVID-19 [facility] [facility] Com 11/23/21 11/23/21 00:35 02:17 MCV MCH MCHC RDW Plt Count MPV Immature Gran % (Auto) Neut % (Auto) Lymph % (Auto) [place] % (Auto) Eos % (Auto) Baso % (Auto) Lymph # (Auto) [place] # (Auto) Eos # (Auto) Baso # (Auto) Abs Immat Gran (auto) Absolute Neuts (auto) Absolute Nucleated RBC Nucleated RBC % (auto) PT INR Anion Gap Estim Creat Clear Calc Estimated GFR Random Glucose Lactic Acid Lactic Acid F/U @ 2Hr 1.6 Calcium Magnesium Total Bilirubin AST ALT Alkaline Phosphatase Total Protein Albumin Urine Color Urine Appearance Urine pH Ur Specific [place] Urine Protein Urine Glucose (UA) Urine Ketones Urine Blood Urine Nitrite Ur Leukocyte Esterase Urine Opiates Screen Urine Fentanyl Screen Ur Barbiturates Screen Ur Phencyclidine Scrn Ur Amphetamines Screen U Benzodiazepines Scrn Urine Cocaine Screen U Marijuana (THC) Screen Ethyl Alcohol COVID-19 ([facility]OPAL) Negative COVID-19 Clin Com See Note ECG Interpretation: Imaging Radiologist's Impressions: Impressions Chest X-Ray 11/22/21 21:51 IMPRESSION: Unremarkable examination. Head CT 11/22/21 22:11 IMPRESSION: No acute intracranial abnormality including hemorrhage, mass effect, hydrocephalus, or acute territorial edematous infarction. Assessment and Plan (1) Syncope: Qualifiers: Syncope type: unspecified Qualified Code(s): R55 - Syncope and collapse Status: Acute (2) Persistent atrial fibrillation: Status: Acute (3) Essential hypertension: Status: Acute (4) Dementia: Status: Inactive Plan Patient with history of alcohol abuse (last drink 2 months ago), dementia, paroxysmal atrial fibrillation on eliquis, hypertension, and cardiomyopathy to be admitted to observation for evaluation of suspected syncopal episode. 1- Syncope vs seizure- etiology unclear at this time -There is a suspicion for seizure activity based on 's description of the event though no history. No focal neuro deficits on exam. Head CT negative. Electrolytes normal. No recent alcohol intake last 2 months. Neuro consult ordered -Admit to telemetry for continuous cardiac monitoring for any cardiac arrhythmia or tachy/marilu syndrome that could have caused episode. Holter monitor from 08/05 showed afib with several prolonged pauses and frequent PVCs -Patient does admit to poor water intake. Renal function is normal, dehydration unlikely cause. Continue oral hydration. -Orthostatics ordered -Seizure precautions 2- Persistent atrial fibrillation- stable -Continue eliquis for anticoagulation -Continue metoprolol, rate controlled -Continue following cardiology outpatient 3- Cardiomyopathy- stable -Most recent EF 35-40% -Continue metoprolol and lisinopril for bp management -Continue following cardiology outpatient 4- Hypertension- stable - Continue metoprolol and lisinopril 5- Dementia- baseline DVT prophylaxis- on eliquis Full code Quality Stroke Does the patient have a stroke diagnosis?: No VTE Prior VTE?: No VTE Risk Level:: Medical - moderate - high VTE Device Contraindication: Treatment Not Indicated VTE Drug Contraindication: N/A - Med Ordered
--- NOTE | 2021-11-23 15:30 | ECG_ITS ---
Test Reason : LOW HEART RATE Blood Pressure : / mmHG Vent. Rate : 070 BPM Atrial Rate : 000 BPM P-R Int : 000 ms QRS Dur : 084 ms QT Int : 406 ms P-R-T Axes : 000 -44 -09 degrees QTc Int : 438 ms Atrial fibrillation Left axis deviation Septal infarct (cited on or before 28-JUL-2008) Abnormal ECG When compared with ECG of 22-NOV-2021 21:55, No significant change was found Referred By: Zunilda Woodson Electronically Signed By:NEIDA JAIMES
--- NOTE | 2021-11-23 15:43 | PM.EVENT ---
Event Note Date of Service: 11/23/21 Event Note: ED notified of HR of 24 on monitor. Not maintained. HR returned to 70s following 4sec pause. Metoprolol held. Cards consult placed. Continue cardiac monitoring. Admit to [facility] as planned.
[2021-11-23] MEDS: lisinopriL 40 MG TABLET PO (16:21)
--- NOTE | 2021-11-23 18:24 | PC.NURSE ---
CARE ASSUMED AT THIS TIME. PT IN ROOM- FAMILY LEFT- CAMERA PLACED FOR PATIENT SAFETY
[2021-11-23] MEDS: traZODone HCL 50 MG TABLET PO (21:37)
[2021-11-23] MEDS: Apixaban 5 MG TABLET PO (21:37)
[2021-11-24] VITALS (8 sets, daily range): BP systolic 134–174; BP diastolic 81–124; PULSE 60–119; RESP 12–17; TEMP 36.6–36.9; O2SAT 95–96; BMI 24.9
--- NOTE | 2021-11-24 00:22 | PC.NURSE ---
Dr Merino notified about pt getting out of bed non-stop. requesting PRn medication
--- NOTE | 2021-11-24 00:52 | PC.NURSE ---
pt note secondary to pt care, previous shift RN did not activate pt camera, pt found out of bed in personal clothes, IV line had been ripped out, pt redirected back to bed, changed into hospital clothes, IV line placed, camera activated, pt placed back on monitor. To note, pt repeatedly taking himself off monitor and getting out of bed, MD aware.
[2021-11-24] MEDS: Haloperidol Lactate 5 MG/ML VIAL IVPUSH (00:57)
[2021-11-24] MEDS: Cyanocobalamin (Vitamin B-12) 1,000 MCG TABLET 1000 MCG PO (07:30)
[2021-11-24] MEDS: Apixaban 5 MG TABLET PO ×2 (07:30→19:58)
[2021-11-24] MEDS: lisinopriL 40 MG TABLET PO (07:30)
--- NOTE | 2021-11-24 07:32 | PC.NURSE ---
brought patient his breakfast tray this morning, got him new linens for bed. pt sitting comfortably in chair to eat breakfast. Tray removed when pt was done eating and pt is now back in bed watching tv.
[2021-11-24] MEDS: 0.9 % Sodium Chloride Flush 3 ML SYRINGE IVFLUSH ×3 (07:44→19:58)
--- NOTE | 2021-11-24 08:53 | PC.NURSE ---
PT PLEASANTLY CONFUSED, CAMERA REMAINS IN ROOM FOR SAFETY. HE ATE BREAKFAST AND TOOK HIS AM MED WITHOUT DIFFICULTY. HE ALTERNATES BETWEEN THE BED AND RECLINER.
--- NOTE | 2021-11-24 09:34 | PM.NEUROCN ---
History of Present Illness Data of Consult Service Date: 11/24/21 Primary Care Provider: DO NIKITA Johns Reason for consult: Seizure 76 years old man who probably has underlying history of dementia atrial fibrillation on anticoagulation was having ice cream with his when he was noted to be suddenly unresponsive slumped over with eyes rolled over for few seconds. He did not have any recollection and apparently there was no obvious reason such as dehydration. He denied that he ever had similar symptom but he was also not a good historian. He said that in the past he had multiple head injuries related to his work. There was probably also history of alcohol abuse but not during recent weeks. Review of Systems Review of Systems: No recent trauma or cold or flu-like illness PMFSH Past Medical History Medical History (Updated 11/24/21 @ 09:38 by Best Weems MD) Alcohol abuse Atrial fibrillation, new onset Cardiomyopathy Dementia Essential hypertension Persistent atrial fibrillation Family History Family History Father No problems noted. Mother No problems noted. Surgical History Surgical History History of appendectomy History of cardiac catheterization History of tonsillectomy Social History Social History (Updated 11/23/21 @ 11:23 by JAIMIE Bonilla) Alcohol intake: former Patient Tobacco Use Status: Never used Tobacco Advance Directives: No Advance Directives Information Provided: No Meds Allergies Allergy/AdvReac Type Severity Reaction Status Date / Time No Known Allergies Allergy Verified 11/09/21 13:11 [No Known Allergies*] Active Medications: Current Medications Acetaminophen (Acetaminophen 325 Mg Tablet) 650 mg PO Q6H PRN PRN Reason: Headache Apixaban (Apixaban 5 Mg Tablet) 5 mg PO BID [facility] Last Admin: 11/24/21 07:30 Dose: 5 mg Cyanocobalamin (Cyanocobalamin (Vitamin B-12) 1,000 Mcg Tablet) 1,000 mcg PO DAILY [facility] Last Admin: 11/24/21 07:30 Dose: 1,000 mcg Lisinopril (Lisinopril 40 Mg Tablet) 40 mg PO DAILY [facility]; Protocol Last Admin: 11/24/21 07:30 Dose: 40 mg Sodium Chloride (0.9 % Sodium Chloride Flush 3 Ml Syringe) 3 ml IVFLUSH QSHIFT [facility] Last Admin: 11/24/21 07:44 Dose: 3 ml Home Medications Medication Instructions Recorded Confirmed Last Taken Type acetaminophen 325 mg tablet 650 mg PO Q6H PRN Headache 11/23/21 11/23/21 Unknown History (Tylenol) apixaban 5 mg tablet (Eliquis) 1 tab PO BID 11/23/21 11/23/21 11/22/21 History cyanocobalamin (vitamin B-12) 1,000 mcg PO DAILY 11/23/21 11/23/21 11/22/21 History 1,000 mcg tablet lisinopril 20 mg tablet 2 tab PO DAILY 11/23/21 11/23/21 11/22/21 History metoprolol succinate 50 mg 1 tab PO DAILY 11/23/21 11/23/21 11/22/21 History tablet,extended release 24 hr Physical Exam Vital Signs: Vital Signs: Last Vital Signs Temp 97.9 F 11/24/21 06:02 Pulse 83 11/24/21 07:28 Resp 12 11/24/21 06:02 BP 162/97 H 11/24/21 08:53 Pulse Ox 96 11/24/21 06:02 O2 Del Method 11/23/21 23:29 BMI result Body Mass Index 24.7 Neuro: Other: He is alert and awake with normal spontaneity of speech fluency comprehension and affect. He did not know where he was and could not tell me where he lived stating that his can answer those questions. He said that she was taking care of him. He was following commands. Face was symmetrical. Visual garrido are full to threat. There was no nystagmus. There was no pronator drift. There was no focal weakness. Deep tendon reflexes were trace to absent with equivocal plantars. Results Labs CBC & Chem 7: 11/22/21 21:11 11/22/21 21:11 Labs: Noncontrast head CT revealed [id number] diffuse cerebral and cerebellar atrophy and [id number] chronic microvascular ischemic changes. Microbiology Microbiology Results: Microbiology 11/22/21 22:44 Blood - Venous Blood Culture - Preliminary No growth after 24 hours. 11/22/21 22:18 Blood - Venous Blood Culture - Preliminary No growth after 24 hours. Assessment and Plan (1) Complex partial seizure: Status: Acute 76 years old man with history of alcohol abuse but not during recent weeks, atrial fibrillation on anticoagulation, had an episode that was suggestive of complex partial seizure. I recommend an EEG an outpatient neurology follow-up. He should not drive and not be involved in any activity that could put his life in danger such as swimming alone. Procedures Date of Service Date of Service: 11/24/21
--- NOTE | 2021-11-24 09:38 | P.PNIM_ITS ---
Subjective Subjective Date of Service: 11/24/21 Interval History: Patient seen for follow up on syncope vs seizure that occured 2 nights ago. He has no complaints today but is cognitively impaired at baseline. Per nursing staff, patient has been pulling off telemetry leads and pulling out his IV line overnight. He got up and put outside clothes on saying he did not need the leads and IV so removed them. Review of Systems ROS limited based on patient cognition General: No fevers, malaise Cardiovascular: No chest pain, palpitations, or leg edema Respiratory: No shortness of breath, wheezing, cough GI: No abdominal pain, nausea, vomiting Neuro: No headaches, weakness, paresthesias Physical Exam Vital Signs: Vital Signs: Last Vital Signs Temp 97.9 F 11/24/21 06:02 Pulse 83 11/24/21 07:28 Resp 12 11/24/21 06:02 BP 162/97 H 11/24/21 08:53 Pulse Ox 96 11/24/21 06:02 O2 Del Method 11/23/21 23:29 BMI result Body Mass Index 24.7 Constitutional - Awake and Alert, No apparent distress Eyes - PERRLA, EOMI Cardiovascular - S1S2, RRR, No edema Respiratory - Normal lung expansion, Normal respiratory effort, No respiratory distress, CTA bilaterally Gastrointestinal - NT / ND; +BS; No rebound or guarding Extremities - no calf tenderness bilaterally, no swelling Skin - Warm/Dry Neurological - Alert and oriented to self and place. Disoriented to time (baseline) Objective Data Active Medications Acetaminophen (Acetaminophen 325 Mg Tablet) 650 mg PO Q6H PRN PRN Reason: Headache Apixaban (Apixaban 5 Mg Tablet) 5 mg PO BID [facility] Last Admin: 11/24/21 07:30 Dose: 5 mg Documented By: ROMIE Cyanocobalamin (Cyanocobalamin (Vitamin B-12) 1,000 Mcg Tablet) 1,000 mcg PO DAILY [facility] Last Admin: 11/24/21 07:30 Dose: 1,000 mcg Documented By: ROMIE Lisinopril (Lisinopril 40 Mg Tablet) 40 mg PO DAILY [facility]; Protocol Last Admin: 11/24/21 07:30 Dose: 40 mg Documented By: ROMIE Sodium Chloride (0.9 % Sodium Chloride Flush 3 Ml Syringe) 3 ml IVFLUSH QSHIFT [facility] Last Admin: 11/24/21 07:44 Dose: 3 ml Documented By: ROMIE Labs CBC & Chem 7: 11/22/21 21:11 11/22/21 21:11 Microbiology Microbiology Results: Microbiology 11/22/21 22:44 Blood Culture - Preliminary Blood - Venous No growth after 24 hours. 11/22/21 22:18 Blood Culture - Preliminary Blood - Venous No growth after 24 hours. Assessment and Plan (1) Loss of consciousness: Status: Acute (2) Hypertensive urgency: Status: Acute Plan Patient with history of alcohol abuse (last drink 2 months ago), dementia, persistent atrial fibrillation on eliquis, hypertension, and cardiomyopathy to be admitted to observation for evaluation of brief period of LOC. 1- Brief loss of consciousness- likely complex partial seizure vs cardiogenic syncope -Seen by neuro this morning- per neuro: possible complex partial seizure. Follow up outpt with Dr. Weems for EEG. No driving or activities that could put his life in danger (eg swimming) -3.4sec pause with HR 24 noted on telemetry last evening, not sustained, rate returned to 70s with follow EKG showing afib and without significant change from prior EKG. Unfortunately, patient continues removing telemetry leads overnight and today with no recurrent episodes noted. Spoke with cardiology. Given duration on pause, unlikely to be cause of a syncopal episode. Resume beta sergo. Telemetry for 1 night and follow up with cards outpt -Orthostatics negative -Continue seizure precautions 2- Hypertensive urgency- uncontrolled with SBP in 170s and diastolic in 100s - Reduce metoprolol to 25mg XL per cards and add amlodipine 10mg. Continue lisinopril 40mg 3- Persistent atrial fibrillation- stable -3.1 sec pause on telemetry as above -Continue eliquis for anticoagulation -Seen by cards. Resume toprol at 25mg daily for rate, uncontrolled at 119 -Continue following cardiology outpatient 4- Cardiomyopathy- stable -Most recent EF 35-40% -Continue metoprolol and lisinopril for bp management -Continue following cardiology outpatient 5- Dementia- baseline per DVT prophylaxis- on eliquis Full code Quality Stroke Does the patient have a stroke diagnosis?: No VTE Prior VTE?: No VTE Risk Level:: Medical - moderate - high VTE Device Contraindication: Treatment Not Indicated VTE Drug Contraindication: N/A - Med Ordered
--- NOTE | 2021-11-24 10:29 | P.CONCA_ITS ---
History of Present Illness History of Present Illness Date of Service: 11/24/21 Chief complaint: Syncope Narrative: This is a cardiology consultation regarding syncopal episode. He has a history of alcohol abuse but nothing in the last few weeks per documentation. Also has baseline dementia. Atrial fibrillation on Eliquis. Cardiomyopathy. He is generally followed up in the office. It seems that he is admitted to the ER following a brief period of unconsciousness. Apparently, the waiting as cream and then the patient's lung forward with eyes rolling back, lasting several seconds. Some stiffening of upper body with shaking of hands. Then evaluated in the ER. Currently, patient is quite confused and does not know where he is. [place] When questioned about specific symptoms like chest pain shortness of breath, he denies everything. He vaguely remembers coming to the ER for passing out but cannot say anything further. Review of Systems Review of Systems: Yes all other systems are reviewed and are negative Constitutional: Constitutional: Reports as per HPI Eyes: Eyes: Reports as per HPI ENT: Reports as per HPI Cardiovascular: Cardiovascular: Reports as per HPI, Denies acrocyanosis, Denies cool extremities, Denies chest pain, Denies leg edema, Denies lightheadedness, Reports Loss of Consciousness, Denies palpitations and Denies dyspnea Respiratory: Respiratory: Reports as per HPI, Reports no additional respirato ry complaints and Denies dyspnea Gastrointestinal: Gastrointestinal: Reports as per HPI and Reports no additional gastrointestinal complaints Genitourinary: Genitourinary: Reports no additional male genitourinary complaints and Reports as per HPI Musculoskeletal: Musculoskeletal: Reports no additional musculoskeletal complaints and Reports as per HPI Integumentary/Breasts: Skin/Breast: Reports system reviewed and no additional complaints, except as docu Neurologic: Reports system reviewed and no additional complaints, except as documented and Reports as per HPI Psychiatric: Psychiatric: Reports no additional psychiatric complaints and Reports as per HPI Endocrine: Endocrine: Reports no additional endocrine complaints, Reports as per HPI and Denies palpitations Hematologic/Lymphatic: Hematologic/Lymphatic: Reports no additional hematologic/lymphatic complaints and Reports as per HPI Allergic/Immunologic: Allergic/Immunologic: Reports no additional allergic/immunologic complaints and Reports as per HPI [facility] Past Medical History Medical History (Updated 11/24/21 @ 11:42 by Burke Felix MD) Alcohol abuse Atrial fibrillation, new onset Cardiomyopathy Dementia Essential hypertension Persistent atrial fibrillation Family History Family History Father No problems noted. Mother No problems noted. Surgical History Surgical History History of appendectomy History of cardiac catheterization History of tonsillectomy Social History Social History (Updated 11/23/21 @ 11:23 by JAIMIE Bonilla) Alcohol intake: former Patient Tobacco Use Status: Never used Tobacco Advance Directives: No Advance Directives Information Provided: No Meds Allergies Allergy/AdvReac Type Severity Reaction Status Date / Time No Known Allergies Allergy Verified 11/09/21 13:11 [No Known Allergies*] Active Medications: Current Medications Acetaminophen (Acetaminophen 325 Mg Tablet) 650 mg PO Q6H PRN PRN Reason: Headache Apixaban (Apixaban 5 Mg Tablet) 5 mg PO BID [facility] Last Admin: 11/24/21 07:30 Dose: 5 mg Cyanocobalamin (Cyanocobalamin (Vitamin B-12) 1,000 Mcg Tablet) 1,000 mcg PO DAILY [facility] Last Admin: 11/24/21 07:30 Dose: 1,000 mcg Lisinopril (Lisinopril 40 Mg Tablet) 40 mg PO DAILY [facility]; Protocol Last Admin: 11/24/21 07:30 Dose: 40 mg Metoprolol Succinate (Metoprolol Succinate Er 25 Mg Tab.Er.24h) 25 mg PO DAILY [facility]; Protocol Sodium Chloride (0.9 % Sodium Chloride Flush 3 Ml Syringe) 3 ml IVFLUSH QSHIFT [facility] Last Admin: 11/24/21 07:44 Dose: 3 ml Home Medications Medication Instructions Recorded Confirmed Last Taken Type acetaminophen 325 mg tablet 650 mg PO Q6H PRN Headache 11/23/21 11/23/21 Unknown History (Tylenol) apixaban 5 mg tablet (Eliquis) 1 tab PO BID 11/23/21 11/23/21 11/22/21 History cyanocobalamin (vitamin B-12) 1,000 mcg PO DAILY 11/23/21 11/23/21 11/22/21 History 1,000 mcg tablet lisinopril 20 mg tablet 2 tab PO DAILY 11/23/21 11/23/21 11/22/21 History metoprolol succinate 50 mg 1 tab PO DAILY 11/23/21 11/23/21 11/22/21 History tablet,extended release 24 hr Physical Exam 2 Vital Signs: Vital Signs: Last Vital Signs Temp 97.9 F 11/24/21 06:02 Pulse 83 11/24/21 07:28 Resp 12 11/24/21 06:02 BP 162/97 H 11/24/21 08:53 Pulse Ox 96 11/24/21 06:02 O2 Del Method 11/23/21 23:29 BMI result Body Mass Index 24.7 Const: General: comfortable and no acute distress Orientation/consciousness: patient oriented x3 HEENT: Other: Unremarkable Head: Yes normal to inspection Neck: Neck: Yes normal visual inspection Chest: Chest palpation & inspection: normal inspection of the chest Resp: Auscultation: clear to auscultation bilaterally Cardio: Palpation: normal PMI Heart sounds: S1 normal heart sound present, S2 normal heart sound present, no gallops, no murmurs and no rubs GI: Palpation (GI): Soft to palpation Back/Spine/Pelvis: Other: unremarkable Skin: General skin exam: no rashes or lesions noted Neuro: General: patient oriented x3 Extrem: General: Yes normal to inspection Psych: Mental Status: mental status grossly normal Objective Labs and Meds Result diagrams: 11/22/21 21:11 11/22/21 21:11 ECG Interpretation: EKG with atrial fibrillation at 70/Min. Leftward axis. Cannot exclude old septal infarct. Assessment and Plan (1) Syncope: Qualifiers: Syncope type: unspecified Qualified Code(s): R55 - Syncope and collapse Status: Acute Unclear if it is cardiac cardiogenic. There is evidence of some slowing of ventricular rate with pauses as much as 3.4 seconds but only brief. Nothing persistent. Currently not on telemetry as he is trying to pull things off. Neurology recommendations noted. Can keep on other day of telemetry. (2) Persistent atrial fibrillation: Status: Acute At home, he is taking metoprolol ER 50 mg daily. It was held yesterday but I think he will go fast and even though he is not on telemetry vital signs showed tachycardia. We can put him back on metoprolol at a small dose. Continue to monitor 1 more day on telemetry. Then outpatient Holter monitoring. (3) Cardiomyopathy: Status: Acute No significant coronary disease on catheterization to explain cardiomyopathy. Last EF was 35-40%. We will follow this up as an outpatient. Etiology could be alcohol related. Clinically, he does not have any congestive heart failure symptoms or signs. (4) Hypertensive urgency: Status: Acute Blood pressure is quite high since arrival. Diastolic is significantly elevated. Not clear if this plays any role in symptoms. Start amlodipine 10 mg daily. Plan Discussed with JAIMIE Bonilla. Procedures Date of Service Date of Service: 11/24/21
[2021-11-24] MEDS: Metoprolol Succinate ER 25 MG TAB.ER.24H PO (10:58)
[2021-11-24] MEDS: amLODIPine Besylate 10 MG TABLET PO (12:52)
--- NOTE | 2021-11-24 19:12 | PC.NURSE ---
PT REMAINED AWAKE AND LAERT WITHOUT ORIENTATION, HE WAS REDIRECTABLE IN THE ED SETTING AND WAS STEADY ON HIS FEET. HE ATE DINNER PRIOR TO TRANSFER TO FLOOR.
[2021-11-25] VITALS: BP 172/100; PULSE 116; RESP 18; TEMP 36.8; O2SAT 96
[2021-11-25] MEDS: dilTIAZem HCL 50 MG/10 ML VIAL 10 MG IVPUSH (00:08)
[2021-11-25 01:26] VITALS: BP 190/96
[2021-11-25] MEDS: hydrOXYzine HCL 25 MG TABLET PO (02:10)
[2021-11-25] MEDS: traZODone HCL 50 MG TABLET PO (02:10)
--- NOTE | 2021-11-25 02:13 | PC.NURSE ---
Midnight BP172/100, HR 116 (afib). Pt agitated and confused. Does not retain information. 1:1 at bedside for patients safety as patient is impulsive and is unsteady on his feet, constantly jumping up and trying to go home. Dr notified. 10mg IV cardizem given. Recheck, BP 190/96, HR up to 130's. Pt agitated and wanting to leave. Unable to reorient for long. Dr notified. Atarax and trazadone ordered and given. 1:1 with patient and bed alarm and camera on for pt safety. Will continue to monitor.
--- NOTE | 2021-11-25 02:54 | PC.NURSE ---
Around 0245, pt's hr dropped to 38 (afib). I woke patient up and his hr came up to 80's. BP 164/102. Pt states he feels fine. Will continue to monitor.
[2021-11-25 07:28] VITALS: BP 172/102; PULSE 106; RESP 16; TEMP 36.7; O2SAT 98
--- NOTE | 2021-11-25 09:05 | MHC.CDI.CONC ---
CDI Concurrent Query Documentation Clarification: PHYSICIAN'S DOCUMENTATION REQUEST Date of Query: 11/25/21904 Patient Name: Darci Paez Admit Date: 11/23/21 Dear Doctor, A review of the medical record indicates additional documentation may be needed. Please review below and update the documentation accordingly. Clinical Indicators Risk Factors/Clinical Indicators/Treatments PN: Dementia, baseline per . Nursing - patient continues to remove telemetry leads, getting out of bed, agitated and confused, trying to go home, unable to reorient. Camera for patients safety. IV Cardizem. If possible, please further clarify type of Dementia and any associated manifestations: Associated Manifestations: Dementia without behavioral disturbance Dementia with behavioral disturbance Aggressive behavior Combative behavior Confusion Dementia with wandering Encephalopathy, metabolic/toxic or other No associated manifestations Other ? please specify Unable to determine Use of terms such as suspected, likely, concern for, or probable (associated with a specific diagnosis that is being evaluated, monitored, or treated as if it exists) are acceptable and can be coded in the inpatient setting, when documented at the time of discharge. Thank you, Jessie Dejesus [facility], CDIS Extension: [phone] Please use your independent medical judgment in providing your response. THIS QUERY IS PART OF THE PERMANENT MEDICAL RECORD Provider Response: Other Other Diagnosis: Dementia without behavioral disturbance
[2021-11-25] MEDS: Cyanocobalamin (Vitamin B-12) 1,000 MCG TABLET 1000 MCG PO (09:11)
[2021-11-25] MEDS: amLODIPine Besylate 10 MG TABLET PO (09:12)
[2021-11-25] MEDS: Apixaban 5 MG TABLET PO (09:12)
[2021-11-25] MEDS: lisinopriL 40 MG TABLET PO (09:12)
[2021-11-25] MEDS: Metoprolol Succinate ER 25 MG TAB.ER.24H PO ×2 (09:12→12:10)
[2021-11-25] MEDS: 0.9 % Sodium Chloride Flush 3 ML SYRINGE IVFLUSH (09:14)
--- NOTE | 2021-11-25 09:59 | MHC.CM.PN ---
met with pt who lives with his pt had no previous servceis prior to admisison ,pt has a ride home when dcd pt is vax x 2 dc plan homew no servceis
--- NOTE | 2021-11-25 10:46 | PM.PNCARD ---
Subjective Subjective Date of Service: 11/25/21 Interval history: He states that he feels fine. No specific complaints. Denies any angina or shortness of breath or palpitations. Review of Systems Review of Systems Yes all other systems are reviewed and are negative Constitutional: Reports as per HPI Eyes: Reports as per HPI Reports as per HPI Cardiovascular: Reports as per HPI, Denies acrocyanosis, Denies cool extremities, Denies chest pain, Denies leg edema, Denies lightheadedness, Reports Loss of Consciousness, Denies palpitations and Denies dyspnea Respiratory: Reports as per HPI, Reports no additional respiratory complaints and Denies dyspnea Gastrointestinal: Reports as per HPI and Reports no additional gastrointestinal complaints Genitourinary: Reports no additional male genitourinary complaints and Reports as per HPI Musculoskeletal: Reports no additional musculoskeletal complaints and Reports as per HPI Skin/Breast: Reports system reviewed and no additional complaints, except as docu Reports system reviewed and no additional complaints, except as documented and Reports as per HPI Psychiatric: Reports no additional psychiatric complaints and Reports as per HPI Endocrine: Reports no additional endocrine complaints, Reports as per HPI and Denies palpitations Hematologic/Lymphatic: Reports no additional hematologic/lymphatic complaints and Reports as per HPI Allergic/Immunologic: Reports no additional allergic/immunologic complaints and Reports as per HPI Physical Exam Vital Signs: Last Vital Signs Temp 98.1 F 11/25/21 07:28 Pulse 106 H 11/25/21 07:28 Resp 16 11/25/21 07:28 BP 172/102 H 11/25/21 07:28 Pulse Ox 98 11/25/21 07:28 O2 Del Method 11/25/21 07:28 BMI result Body Mass Index 24.9 Const General: comfortable and no acute distress Orientation/consciousness: patient oriented x3 HEENT Other: Unremarkable Head: Yes normal to inspection Neck Neck: Yes normal visual inspection Chest Chest palpation & inspection: normal inspection of the chest Resp Auscultation: clear to auscultation bilaterally Cardio Palpation: normal PMI Heart sounds: S1 normal heart sound present, S2 normal heart sound present, no gallops, no murmurs and no rubs GI Palpation (GI): Soft to palpation Back/Spine/Pelvis Other: unremarkable Skin General skin exam: no rashes or lesions noted Neuro General: patient oriented x3 Extrem General: Yes normal to inspection Psych Mental Status: mental status grossly normal Objective Labs and Meds Result diagrams: 11/22/21 21:11 11/22/21 21:11 Progress Note: A&P Assessment and plan (1) Syncope: Status: Acute Assessment and Plan: Overall, highly doubt if cardiac etiology for syncopal episode. Upon admission, there were pauses as much as 3.4 seconds but nothing more. This is not considered to be significant while in atrial fibrillation. Currently, he is rather going fast. Hence resume the usual dose of beta-blockers. (2) Persistent atrial fibrillation: Status: Acute Assessment and Plan: Can resume the usual dose of beta-blockers as he is rather on the faster side. Continue anticoagulation without changes. (3) Cardiomyopathy: Status: Acute Assessment and Plan: No significant coronary disease on catheterization to explain cardiomyopathy. Last EF was 35-40%. We will follow this up as an outpatient. Etiology could be alcohol related. Clinically, he does not have any congestive heart failure symptoms or signs. (4) Hypertensive urgency: Status: Acute Assessment and Plan: Blood pressure continues to be high. Currently on lisinopril 40 mg daily. Amlodipine was added. Beta-sergo dose increased back to baseline should help. Otherwise, consider adding spironolactone. Further options will be hydralazine. Plan Discussed with JAIMIE Bonilla, . Time Spent With Patient Time: Total time spent is greater than 50% in coordination of care (as documented) at patient's floor/unit and/or counseling patient: 35min. Progress Note: Quality Stroke Does the patient have a stroke diagnosis?: No Procedures Date of Service Date of Service: 11/25/21
--- NOTE | 2021-11-25 11:49 | P.DS_ITS ---
DS: Providers Provider Date of Service: 11/25/21 Date of admission: 11/23/21 09:48 Date of discharge: 11/25/21 Primary care physician: Maged Scott DO Admitting clinician: Zhang Salas Consults: 11/23/21 14:51 Consult to Neurology Routine Consulting Provider: [facility] Reason for consultation: ?seizure Has provider been notified: No 11/23/21 15:45 Consult to Cardiology Routine Consulting Provider: Burke Felix Reason for consultation: syncope, sick sinus syndrome Has provider been notified: No Attending physician on discharge: Zhang Salas Discharging clinician: Zunilda Woodson DS: Diagnosis Discharge Diagnosis (1) Syncope: Status: Acute (2) Persistent atrial fibrillation: Status: Acute (3) Cardiomyopathy: Status: Acute (4) Hypertensive urgency: Status: Acute (5) Complex partial seizure: Status: Acute DS: Summary Hospital Course Hospital Course: HPI: Patient with history of alcohol abuse (last drink 2 months ago), dementia, paroxysmal atrial fibrillation on eliquis, hypertension, and cardiomyopathy presented to the ED last night following a brief period of unconsciousness. His states they were eating ice cream when the patient slumped forward with his eyes rolling back with period of unconsciousness lasting several seconds. The patient does not recall the episode but has memory impairment at baseline secondary to dementia. His states the patient's limbs and upper body stiffened with slight shaking of the hands. There was no post ictal phase, incontinence, or tongue biting. No history of seizures. He denies having had similar episodes in the past and there has been no recurrence since presentation. He is feeling well currently in exam room with his son. Denies any palpitations, chest pain, sob, weakness, paresthesias. He follows with Dr. Felix in cardiology. Has not had any alcohol since initiation of eliquis. Had holter monitor in 08/05 with persistent afib and several long pauses up to 3.1sec and frequent PVCs. Last echo with EF 35-40%, no significnat valvular disease. In ER, lactic acid initially elevated at 2.1, improved to 1.6. Bilirubin 1.7, liver enzymes otherwise normal. Hematology and chemistries otherwise unremarkable. Head CT negative for actue intracranial abnormality. Chest xray unremarkable. Blood pressure have been slightly elevated, but he is hemodynamically stable. Hospital Course: Patient seen and evaluated with cardiology and neurology. There were no recurrent episodes of loss of consciousness. He was on cardiac monitoring during the duration of admission. There were two episodes were short, non-sustained pauses with HR down to 24 lasting <5 seconds. Metoprolol was briefly held and then reintroduced as pauses felt to be related to afib, not the cause of bradycardia. He should continue following outpatient with cardiology. Neurology evaluated patient and felt this was a possible complex partial seizure. R ecommended to follow up outpatient with Dr. Weems for EEG and possible MRI. Patient had uncontrolled hypertension with episode of hypertensive urgency. Amlodipine 10mg and spironolactone 25mg added and he will continue these outpatient along with toprol 50mg and lisinopril 40mg daily. Status at Discharge Cognitive/behavioral status at discharge: baseline Time Spent with Patient Time attestation: Total time spent providing and/or coordinating discharge services: Discharge coordination time: Greater than 30 minutes Quality: Safe Use of Opioids Does Pt have an Active Cancer Diagnosis on the Problem List?: No Quality: Stroke Does the patient have a stroke diagnosis?: No Physical Exam Vital Signs: Vital Signs: Last Vital Signs Temp 98.1 F 11/25/21 07:28 Pulse 106 H 11/25/21 07:28 Resp 16 11/25/21 07:28 BP 172/102 H 11/25/21 07:28 Pulse Ox 98 11/25/21 07:28 O2 Del Method 11/25/21 07:28 BMI result Body Mass Index 24.9 Constitutional - Awake and Alert, No apparent distress Eyes - PERRLA, EOMI Cardiovascular - S1S2, RRR, No edema Respiratory - Normal lung expansion, Normal respiratory effort, No respiratory distress, CTA bilaterally Gastrointestinal - NT / ND; +BS; No rebound or guarding Extremities - no calf tenderness bilaterally, no swelling Skin - Warm/Dry Neurological - Alert & oriented x3, No focal deficit Psychological - Appropriate affect DS: Data Data Completed and Pending Labs on day of discharge: Preliminary micro results at discharge 11/22/21 22:44 Blood Culture - Preliminary Blood - Venous No growth after 48 hours. 11/22/21 22:18 Blood Culture - Preliminary Blood - Venous No growth after 48 hours. Discharge Plan Discharge Anticipated Discharge Date/Time: 11/25/21 11:13 Patient Disposition: Home, Self-Care Referrals: Magde Scott DO [Primary Care Provider] - 1 Week Best Weems MD [Physician] - 1 Week Remberto Hood MD [Physician] - 1 Week Discharge Medications: New amlodipine 10 mg Tablet 10 mg PO DAILY Qty: 14 0RF Protocol: Hold for SBP< HOLD for SBP < : 90 spironolactone 25 mg tablet 25 mg PO DAILY Qty: 14 0RF Continued metoprolol succinate 50 mg tablet extended release 24 hr 1 tab PO DAILY lisinopril 20 mg tablet 2 tab PO DAILY Eliquis 5 mg tablet 1 tab PO BID cyanocobalamin (vitamin B-12) 1,000 mcg Tablet 1,000 mcg PO DAILY acetaminophen [Tylenol] 325 mg Tablet 650 mg PO Q6H PRN (Reason: Headache) Discharge Orders: Discharge Order (Routine); Ordered 11/25/21 Ordered By: Zunilda Woodson Diet: Regular diet Activity on Discharge: As tolerated Stand Alone Forms: Patient Portal Discharge page Care Plan Goals: Further investigation into cause of loss of consciousness with neurology. Better blood pressure management and ongoing follow up [facility] cardiology for atrial fibrillation Health Concerns: You likely had a seizure causing your loss of counsciousness. Your blood pressure is uncontrolled. See below. Plan of Treatment: You will need to follow up with neurology outpatient for an EEG for further assessment of possible seizure activity. You should follow up with cardiology soon for your atrial fibrillation. Your blood pressure was uncontrolled throughout your stay. Spironolactone 25mg and amlodipine 10mg were added during your stay. You will continue these at home as well as your lisinopril 40mg and metoprolol 50mg XL. Assessment: Your loss of consciousness episode seems to possibly be related to seizure activity, specifically a complex partial seizure per neurology. You have very brief episodes where your heart rate drops which is consistent with your atrial fibrillation. After discussion with cardiology, this is not likely the cause of your loss of consciousness.
[2021-11-25 11:58] VITALS: BP 145/87; PULSE 122; RESP 16; TEMP 36.9; O2SAT 98
[2021-11-25] MEDS: Spironolactone 25 MG TABLET PO (12:11)
--- NOTE | 2021-11-25 13:58 | MHC.CM.PN ---
pt dcd home no skilled services ordered by
== END 2021-11-25 14:29 | disposition home or self-care (01) ==
LOC: HO.ED 11-23 02:13 → HO.EDOVER 11-23 10:01 → HO.IMC 11-24 16:30
PROVIDERS: Admitting Provider Physician Assistant; Emergency Provider Emergency Medicine; PCP Internal Medicine; Visit Provider Physician Assistant
DX: R55 Syncope and collapse (principal); I48.19 Other persistent atrial fibrillation; I42.9 Cardiomyopathy, unspecified; I16.0 Hypertensive urgency; G40.209 Localization-related (focal) (partial) symptomatic epilepsy and epileptic syndromes with complex partial seizures, not intractable, without status epilepticus; E87.2 Acidosis; I10 Essential (primary) hypertension; F03.90 Unspecified dementia, unspecified severity, without behavioral disturbance, psychotic disturbance, mood disturbance, and anxiety; Z20.822 Contact with and (suspected) exposure to COVID-19; F10.10 Alcohol abuse, uncomplicated; Y90.0 Blood alcohol level of less than 20 mg/100 ml; Z79.01 Long term (current) use of anticoagulants; Z79.899 Other long term (current) drug therapy
CPT/HCPCS: 36415; 70450; 71045; 80053; 80307; 81003; 82077; 83605; 83735; 84484; 85025; 85610; 87040; 87635; 93005; 96361; 96374; 96375; 99219; 99285

== ENCOUNTER → 2021-12-16 07:36 | Outpatient (REF) | payer MEDICARE, SELFPAY ==
--- NOTE | 2021-12-16 07:52 | HM_ITS ---
* Total monitoring time 3 days and 6 hours. * Underlying rhythm is atrial fibrillation. Average rate 79/Min. Range 46 to 143/Min. * About 5.6% the time, rate > 100/Min. * Pauses noted, longest is 3.6 seconds at 14:05. * Frequent ventricular ectopy. Brice of 1.4%. * No patient events. * Overall, reasonable rate control with slight tendency for tachycardia. MTDD
--- NOTE | 2021-12-16 07:52 | CA_ITS ---
Transthoracic Echocardiogram Patient (Last, First, Middle): Darci Paez, Gender: Male Date of : 1945 Age: 76 Procedure Date: 12/16/2021 Procedure Type: Transthoracic Echocardiogram Location: OP Height: 167.64 cm Weight: 64.86 kg BSA: 1.73 m2 Heart Rate: 75 bpm BP: 119 / 70 mmHg Bilingual Sales Consultant: SB Referring MD: Sybil Hernandes HEALTHCARE PROJECT MANAGER-C Rv Service Technician: Remberto Hood MD Symptoms: I42.9 - Cardiomyopathy, unspecified Study Quality: Adequate ECG Rhythm: Atrial Fibrillation Conclusions: - Normal LV systolic function with mild LVH with moderate LV systolic dysfunction with LVEF of 35-40% Findings Left Ventricle Normal left ventricular cavity size. There is mildly increased left ventricular wall thickness. The left ventricular systolic function is moderately decreased. The visually estimated ejection fraction is between 35 40%. Right Ventricle Normal right ventricular cavity size. There is borderline right ventricular systolic function. Pericardium/Pleural There is no evidence of pericardial effusion. Prior Study Comparison No significant change compared to prior study dated: 07/27/2021. Measurements 2D Linear Measurements IVSd: 1.28 0.6-0.9/0.6-1.0 cm LVIDd: 4.73 3.9-5.3/4.2-5.9 cm LVIDd Index: 2.73 2.4-3.2/2.2-3.1 cm/m2 LVIDs: 3.65 2.0-3.6 cm LVPWd: 1.15 0.7-1.1 cm LV Mass: 271.69 67-162/88-224 g LV Mass Index: 157.04 43-95/49-115 g/m2 2D Systolic Function EF 4C: 39.30 >55% EF 2C: 42.80 >55% EF BiP: 39.70 >55% Right Ventricle TAPSE (mm): 15.90 TVS' Pérez: 7.00 Tricuspid Valve TR Pk Pérez: 2.32 TR Pk Grad: 22.00 RA Press: 3.00 RVSP: 25.00 Updated in Other Vendor System with Status of Final Remberto Hood MD electronically signed on 12/19/2021 11:33:05 AM with status of Final
[2021-12-16 09:04] LABS: Anion Gap 14 (12-20); Blood Urea Nitrogen 8 mg/dL (9-16); Calcium 9.2 mg/dL (8.4-10.2); Carbon Dioxide 26 mmol/L (22-29); Chloride 100 mmol/L (96-108); Estimated Glomerular Filt Rate 51; Glucose Random 105 mg/dL (60-115); Potassium 5.2 mmol/L (3.3-5.1); Sodium 135 mmol/L (135-145)
== END ==
LOC: HO.CARD 07:36
PROVIDERS: PCP Internal Medicine; Visit Provider Internal Medicine
DX: I42.9 Cardiomyopathy, unspecified (principal); I48.19 Other persistent atrial fibrillation; I10 Essential (primary) hypertension; F10.10 Alcohol abuse, uncomplicated
CPT/HCPCS: 36415; 80048; 93242; 93308

== ENCOUNTER 2021-12-30 11:38 | Outpatient (REF) | payer MEDICARE, SELFPAY ==
[2021-12-30 13:50] LABS: Potassium 5.1 mmol/L (3.3-5.1)
== END 2021-12-30 11:39 | disposition home or self-care (01) ==
LOC: HO.10HDL 11:38
PROVIDERS: Visit Provider Internal Medicine
DX: E78.5 Hyperlipidemia, unspecified (principal)
CPT/HCPCS: 36415; 84132

== ENCOUNTER → 2022-01-10 14:34 | Outpatient (BNVA) | payer MEDICARE, SELFPAY | PROVIDERS: PCP Internal Medicine; Referring Provider Internal Medicine; Visit Provider Internal Medicine | DX: I48.19 Other persistent atrial fibrillation (principal); I42.9 Cardiomyopathy, unspecified; I10 Essential (primary) hypertension; F10.10 Alcohol abuse, uncomplicated | CPT/HCPCS: 99212 ==

== ENCOUNTER 2022-04-21 19:57 | Emergency (ER) | payer MEDICARE, SELFPAY ==
--- NOTE | 2022-04-21 | ECG_ITS ---
Test Reason : SEIZURE Blood Pressure : / mmHG Vent. 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
--- NOTE | ~2022-04-21 | CT_ITS ---
EXAMINATION: CT HEAD WITHOUT CONTRAST CLINICAL INFORMATION: Seizure, on blood thinners COMPARISON: 11/22/2021 TECHNIQUE: Contiguous axial imaging was performed from the skull base to vertex without intravenous administration of contrast. This CT examination was performed using dose optimization techniques as appropriate, variously including the following: *Automated exposure control *Adjustment of mA and/or kV according to patient size (this includes techniques or standardized protocols for targeted exams where dose is matched to indication/reason for exam; i.e. extremities or head) *Use of iterative reconstruction technique DLP: 640 mGy-cm FINDINGS: There is no midline shift. There is no mass effect. There is no hemorrhage. The basal cisterns appear patent. The posterior fossa is grossly within normal limits. There is no extra-axial collection. Scattered white matter ischemic changes and atrophy are noted. Sinuses are grossly clear. CT/CT head/brain wo IV con IMPRESSION: Negative acute noncontrast CT the brain. Atrophy and white matter ischemic changes noted.
[2022-04-21 20:05] VITALS: BP 142/62; PULSE 72; O2SAT 100
[2022-04-21 20:06] VITALS: BP 167/106; PULSE 77; RESP 11; O2SAT 100; BMI 24.1
--- NOTE | 2022-04-21 20:19 | PC.NURSE ---
Pt oriented to self, place, situation, not to time. States having 'dizzy spells' and 'not feeling well'. Denies having any pain.
[2022-04-21 20:21] VITALS: PULSE 83; RESP 14
[2022-04-21 20:47] LABS: MANUAL DIFF FLAG NO
[2022-04-21 20:48] LABS: Basophils Absolute Auto 0.1 X10*3/uL (0.0-0.2); Basophils Percent Auto 0.5 % (0-2); Eosinophils Absolute Auto 0.1 X10*3/uL (0.0-0.4); Eosinophils Percent Auto 1.2 % (0-4); Hematocrit 45.1 % (42.0-52.0); Hemoglobin 15.2 g/dl (14.0-18.0); Imm Gran Abs Auto 0.08 X10*3/uL (0.00-0.03); Imm Gran Pct Auto 0.8 % (0.0-0.4); Lymphocytes Absolute Auto 2.2 X10*3/uL (1.2-4.9); Lymphocytes Percent Auto 22.7 % (20-40); Mean Corpuscular HGB Conc 33.7 g/dl (31.0-36.0); Mean Corpuscular Hemoglobin 30.8 pg (27.0-33.0); Mean Corpuscular Volume 91.5 fL (80.0-98.0); Mean Platelet Volume 9.5 fL (9.4-12.4); Monocytes Percent Auto 10.6 % (2-11); Neutrophils Absolute Auto 6.3 x10*3/uL (2.0-8.3); Neutrophils Percent Auto 64.2 % (45-73); Platelet Count 222 X10*3/uL (160-400); Red Blood Count 4.93 X10*6/uL (4.60-5.80); Red Cell Distribution Width 12.1 % (11.0-16.0); White Blood Count 9.8 X10*3/uL (4.8-10.8)
[2022-04-21 21:04] LABS: Alanine Aminotransferase 29 U/L (0-40); Albumin Level 3.8 g/dL (3.5-5.0); Alkaline Phosphatase 56 U/L (39-117); Anion Gap 13 (12-20); Aspartate Amino Transferase 45 U/L (5-37); Bilirubin Total 1.3 mg/dL (0.0-1.0); Blood Urea Nitrogen 11 mg/dL (9-16); Carbon Dioxide 28 mmol/L (22-29); Chloride 101 mmol/L (96-108); Creatinine Clr Calc Pharmacy 43.7; Estimated Glomerular Filt Rate 59; Glucose Random 101 mg/dL (60-115); Potassium 4.9 mmol/L (3.3-5.1); Sodium 137 mmol/L (135-145); Total Protein 5.8 g/dL (6.5-8.0)
[2022-04-21 21:32] LABS: IDNOW Serial# 55D5AD1C; Influenza A Positive (Negative); Influenza B2 Negative (Negative)
[2022-04-21 21:34] LABS: COVID-19 Test Negative (Negative); IDNOW Serial# 6674DD1D
--- NOTE | 2022-04-21 21:59 | ED.GENADULT ---
HPI - General Adult General Chief complaint: Seizure Stated complaint: Seizures per EMS Time Seen by Provider: 04/21/22 20:51 Source: patient, family () and EMS Mode of arrival: EMS History of Present Illness HPI narrative: 77-year-old male states that he takes his medication every day and also drinks ?a 6 pack every day? but states that he has not had an alcoholic drink in 2 days. Patient's told EMS that he seemed ?off? and went on to apparently describe a [place] seizure like symptoms that occurred at 18:00, 1900, and 1930. Patient has a history of atrial fibrillation, dementia, hypertension. And according to the triage note has no history of seizures but on review of patient's problem list and prior documentation. EMS did not appreciate any seizure-like activity, patient has had no seizures since arrival here to the emergency room. Related Data Home Medications Medication Instructions Recorded Confirmed acetaminophen 325 mg tablet 650 mg PO Q6H PRN Headache 11/23/21 01/10/22 (Tylenol) cyanocobalamin (vitamin B-12) 1,000 mcg PO DAILY 11/23/21 01/10/22 1,000 mcg tablet apixaban 5 mg tablet (Eliquis) 5 mg PO BID 01/10/22 01/10/22 metoprolol succinate 50 mg 50 mg PO DAILY 01/10/22 01/10/22 tablet,extended release 24 hr Previous Rx's Medication Instructions Recorded lisinopril 40 mg tablet 40 mg PO DAILY #90 tabs 04/11/22 oseltamivir 30 mg capsule (Tamiflu) 30 mg PO BID 5 days #10 caps 04/21/22 Allergies Allergy/AdvReac Type Severity Reaction Status Date / Time No Known Allergies Allergy Verified 01/10/22 14:36 [No Known Allergies*] Review of Systems Review of Systems: Pertinent positives and negatives as stated in HPI. [facility] Past Medical History Source: nursing notes reviewed Medical History Alcohol abuse Atrial fibrillation, new onset Cardiomyopathy Dementia Essential hypertension Persistent atrial fibrillation Surgical History History of appendectomy History of cardiac catheterization History of tonsillectomy Family History Family History Father No problems noted. Mother No problems noted. Social History Social History Alcohol intake: former Patient Tobacco Use Status: Never used Tobacco Smoked in Last 30 Days: No Use of substances other than those prescribed or required for medical reasons: No Advance Directives: No Advance Directives Information Provided: Yes service: No Physical Exam ED Vital Signs: Vital Signs - 24 hr 04/21/22 20:06 04/21/22 20:21 Pulse Rate 77 Pulse Rate [Automated] 83 Respiratory Rate 11 L 14 Blood Pressure 167/106 H Pulse Oximetry 100 BMI result Body Mass Index 24.1 VITAL SIGNS: Reviewed. GENERAL: Well developed, well nourished, in no acute distress. HEAD: Normocephalic/atraumatic EYES: PERRLA, EOMI EARS: Ext canals without abnormality OROPHARYNX: no oral lesions noted, posterior pharynx clear LUNGS: Normal breath sounds. No adventitious sounds or accessory muscle use. SpO2<100> CARDIOVASCULAR: Regular rate and rhythm without noted murmurs ABDOMEN: Soft, non-tender, non-distended with bowel sounds. MUSCULOSKELETAL: No tenderness, deformities, or effusions noted on gross inspection. EXTREMITIES: No cyanosis, clubbing or edema. SKIN: Inspection of the skin reveals no rashes NEUROLOGIC: Alert and oriented x 2. Strength and sensation to light touch were grossly intact x 4, cranial nerves 2-12 are grossly intact. Medical Decision Making Medical Decision Making [facility] Narrative: 77-year-old male with reports by family being ?off? and has a history of dementia. I have reviewed and interpreted the workup as significant for influenza a viral infection, CT scan negative for any intracranial pathology, no evidence of bacterial infection, anemia or electrolyte derangement. Patient is otherwise stable for discharge to home. Differential Diagnosis Differential Diagnoses: The differential diagnosis associated with the presentation includes Possible pathogens, and anemia Lab Data [facility] Lab Attestation statement: I reviewed the patient's lab results. Please see the discussion above 04/21/22 20:41 04/21/22 20:41 Labs: Lab Results 04/21/22 04/21/22 04/21/22 Range/Units 20:41 20:41 21:07 WBC 9.8 (4.8-10.8) X10*3/uL RBC 4.93 (4.60-5.80) X10*6/uL Hgb 15.2 (14.0-18.0) g/dl Hct 45.1 (42.0-52.0) % MCV 91.5 (80.0-98.0) fL MCH 30.8 (27.0-33.0) pg MCHC 33.7 (31.0-36.0) g/dl RDW 12.1 (11.0-16.0) % Plt Count 222 (160-400) X10*3/uL MPV 9.5 (9.4-12.4) fL Immature Gran % (Auto) 0.8 H (0.0-0.4) % Neut % (Auto) 64.2 (45-73) % Lymph % (Auto) 22.7 (20-40) % [place] % (Auto) 10.6 (2-11) % Eos % (Auto) 1.2 (0-4) % Baso % (Auto) 0.5 (0-2) % Lymph # (Auto) 2.2 (1.2-4.9) X10*3/uL [place] # (Auto) 1.0 (0.1-1.2) X10*3/uL Eos # (Auto) 0.1 (0.0-0.4) X10*3/uL Baso # (Auto) 0.1 (0.0-0.2) X10*3/uL Abs Immat Gran (auto) 0.08 H (0.00-0.03) X10*3/uL Absolute Neuts (auto) 6.3 (2.0-8.3) x10*3/uL Absolute Nucleated RBC 0.000 (0.0-0.012) X10*3/uL Nucleated RBC % (auto) 0.0 (0.0-0.2) /100WBC PT (10.0-13.1) SEC INR (0.9-1.1) Sodium 137 (135-145) mmol/L Potassium 4.9 (3.3-5.1) mmol/L Chloride 101 (96-108) mmol/L Carbon Dioxide 28 (22-29) mmol/L Anion Gap 13 (12-20) BUN 11 (9-16) mg/dL Creatinine 1.19 (0.5-1.4) mg/dL Estim Creat Clear Calc 43.7 Estimated GFR 59 Random Glucose 101 (60-115) mg/dL Calcium 9.0 (8.4-10.2) mg/dL Total Bilirubin 1.3 H (0.0-1.0) mg/dL AST 45 H D (5-37) U/L ALT 29 (0-40) U/L Alkaline Phosphatase 56 (39-117) U/L Total Protein 5.8 L (6.5-8.0) g/dL Albumin 3.8 (3.5-5.0) g/dL COVID-19 (GOPAL) (Negative) COVID-19 Clin Com Influenza Type A (RICHIE) Positive A (Negative) Influenza Type B (RICHIE) Negative (Negative) Influenza A & B Note See Note 04/21/22 04/21/22 Range/Units 21:07 22:19 WBC (4.8-10.8) X10*3/uL RBC (4.60-5.80) X10*6/uL Hgb (14.0-18.0) g/dl Hct (42.0-52.0) % MCV (80.0-98.0) fL MCH (27.0-33.0) pg MCHC (31.0-36.0) g/dl RDW (11.0-16.0) % Plt Count (160-400) X10*3/uL MPV (9.4-12.4) fL Immature Gran % (Auto) (0.0-0.4) % Neut % (Auto) (45-73) % Lymph % (Auto) (20-40) % [place] % (Auto) (2-11) % Eos % (Auto) (0-4) % Baso % (Auto) (0-2) % Lymph # (Auto) (1.2-4.9) X10*3/uL [place] # (Auto) (0.1-1.2) X10*3/uL Eos # (Auto) (0.0-0.4) X10*3/uL Baso # (Auto) (0.0-0.2) X10*3/uL Abs Immat Gran (auto) (0.00-0.03) X10*3/uL Absolute Neuts (auto) (2.0-8.3) x10*3/uL Absolute Nucleated RBC (0.0-0.012) X10*3/uL Nucleated RBC % (auto) (0.0-0.2) /100WBC PT 19.4 H (10.0-13.1) SEC INR 1.7 H (0.9-1.1) Sodium (135-145) mmol/L Potassium (3.3-5.1) mmol/L Chloride (96-108) mmol/L Carbon Dioxide (22-29) mmol/L Anion Gap (12-20) BUN (9-16) mg/dL Creatinine (0.5-1.4) mg/dL Estim Creat Clear Calc Estimated GFR Random Glucose (60-115) mg/dL Calcium (8.4-10.2) mg/dL Total Bilirubin (0.0-1.0) mg/dL AST (5-37) U/L ALT (0-40) U/L Alkaline Phosphatase (39-117) U/L Total Protein (6.5-8.0) g/dL Albumin (3.5-5.0) g/dL COVID-19 (GOPAL) Negative (Negative) COVID-19 Clin Com See Note Influenza Type A (RICHIE) (Negative) Influenza Type B (RICHIE) (Negative) Influenza A & B Note Independent Interpretation I performed an independent interpretation of an: EKG Interpretation: Atrial fibrillation, HR-68, no STEMI, QRS/QTC is within normal limits. Radiology Impression Radiologist Impression: My interpretation is in agreement with radiology's impression imaging study. External Record Review External record reviewed: Outpatient record and Prior outpatient labs Critical Care Time Critical Care Time Critical Care Time: Yes Total Critical Care Time: 30 Attestation: I personally attest to this time spent taking care of the patient. Discharge Plan Discharge Clinical Impression: Influenza A Patient Disposition: Home, Self-Care Instructions: Influenza (ED) Additional Instructions: 1. Resume home medications as prescribed. 2. I have sent a prescription for Tamiflu for your influenza a positivity. 3. I recommend that you follow-up with your primary care provider on Sunday morning. Return to the ER for any worsening symptoms. Prescriptions: New oseltamivir [Tamiflu] 30 mg capsule 30 mg PO BID 5 Days Qty: 10 0RF No Action lisinopril 40 mg tablet 40 mg PO DAILY Qty: 90 3RF cyanocobalamin (vitamin B-12) 1,000 mcg Tablet 1,000 mcg PO DAILY acetaminophen [Tylenol] 325 mg Tablet 650 mg PO Q6H PRN (Reason: Headache) Eliquis 5 mg tablet 5 mg PO BID metoprolol succinate 50 mg tablet extended release 24 hr 50 mg PO DAILY
[2022-04-21 22:35] LABS: INTERNATIONAL NORM RATIO 1.7 (0.9-1.1); Prothrombin Time 19.4 SEC (10.0-13.1)
--- NOTE | 2022-04-21 23:01 | PC.NURSE ---
Patient resting quietly while watching tv; no apparent distress.
--- NOTE | 2022-04-21 23:56 | PC.NURSE ---
Discharge instructions given to patient and explained to pt; ambulates safely and independently; no apparent distress; speaking in full sentences (no respiratory distress); pt left with son
== END 2022-04-21 23:56 | disposition home or self-care (01) ==
PROVIDERS: Emergency Provider Student in an Organized Health Care Education/Training Program
DX: J10.1 Influenza due to other identified influenza virus with other respiratory manifestations (principal); R56.9 Unspecified convulsions; Z20.828 Contact with and (suspected) exposure to other viral communicable diseases; Z20.822 Contact with and (suspected) exposure to COVID-19
CPT/HCPCS: 36415; 70450; 80053; 85025; 85610; 87502; 87635; 93005; 99284

== ENCOUNTER 2022-06-09 10:56 | Outpatient (REF) | payer MEDICARE, SELFPAY ==
[2022-06-09 11:00] LABS: MANUAL DIFF FLAG NO
[2022-06-09 11:23] LABS: Appearance Urine Clear; Color Urine Yellow; Glucose Urine UA Negative (Negative); Leukocyte Esterase Urine Negative (Negative); Nitrite Urine Negative (Negative); Specific Gravity - Urine <= 1.005 (1.005-1.025); Urine Blood Negative (Negative); Urine Ketones Negative (Negative); Urine Protein Negative (Neg-Trace)
[2022-06-09 11:45] LABS: Basophils Absolute Auto 0.1 X10*3/uL (0.0-0.2); Basophils Percent Auto 1.2 % (0-2); Eosinophils Absolute Auto 0.4 X10*3/uL (0.0-0.4); Eosinophils Percent Auto 3.8 % (0-4); Hematocrit 49.4 % (42.0-52.0); Hemoglobin 16.2 g/dl (14.0-18.0); Imm Gran Abs Auto 0.06 X10*3/uL (0.00-0.03); Imm Gran Pct Auto 0.6 % (0.0-0.4); Lymphocytes Percent Auto 38.3 % (20-40); Mean Corpuscular HGB Conc 32.8 g/dl (31.0-36.0); Mean Corpuscular Volume 94.5 fL (80.0-98.0); Mean Platelet Volume 10.7 fL (9.4-12.4); Monocytes Percent Auto 9.9 % (2-11); Neutrophils Absolute Auto 4.8 x10*3/uL (2.0-8.3); Neutrophils Percent Auto 46.2 % (45-73); Platelet Count 174 X10*3/uL (160-400); Red Blood Count 5.23 X10*6/uL (4.60-5.80); Red Cell Distribution Width 13.1 % (11.0-16.0); White Blood Count 10.4 X10*3/uL (4.8-10.8)
[2022-06-09 11:50] LABS: Estimated Average Glucose 114 mg/dL; Hemoglobin A1C 152.0441 umol/L; Hemoglobin A1c % 5.6 %
[2022-06-09 12:21] LABS: Creatinine Urine 57.16 mg/dL; Microalbum/Creatinine Ratio Ur 103.2 ug/mg cr
[2022-06-09 13:34] LABS: Alanine Aminotransferase 10 U/L (0-40); Albumin Level 3.9 g/dL (3.5-5.0); Alkaline Phosphatase 60 U/L (39-117); Anion Gap 15 (12-20); Aspartate Amino Transferase 23 U/L (5-37); Bilirubin Total 1.9 mg/dL (0.0-1.0); Blood Urea Nitrogen 8 mg/dL (9-16); Carbon Dioxide 27 mmol/L (22-29); Chloride 103 mmol/L (96-108); Cholesterol 244 mg/dL; Estimated Glomerular Filt Rate 58; Glucose Fasting 84 mg/dL (60-99); HDL Cholesterol 42 mg/dL; LDL Cholesterol Calculated 180 mg/dl; Potassium 4.4 mmol/L (3.3-5.1); Sodium 141 mmol/L (135-145); Total Protein 5.8 g/dL (6.5-8.0); Triglycerides 113 mg/dL
[2022-06-09 14:14] LABS: Folate 17.8 ng/mL (> or = 4.0); PSA,Total (Free>4and<10) 1.39 ng/mL (0.00-4.00); Vitamin B12 961 pg/mL (200-900)
== END 2022-06-09 10:57 | disposition home or self-care (01) ==
LOC: HO.LNP 10:56
PROVIDERS: Visit Provider Internal Medicine
DX: Z00.00 Encounter for general adult medical examination without abnormal findings (principal); I10 Essential (primary) hypertension; E53.8 Deficiency of other specified B group vitamins; R73.09 Other abnormal glucose; R79.89 Other specified abnormal findings of blood chemistry; E78.00 Pure hypercholesterolemia, unspecified; D69.6 Thrombocytopenia, unspecified; Z12.5 Encounter for screening for malignant neoplasm of prostate
CPT/HCPCS: 80053; 80061; 81003; 82043; 82607; 82746; 83036; 84153; 85025

== ENCOUNTER → 2022-07-11 13:21 | Outpatient (BNVA) | payer MEDICARE, SELFPAY | PROVIDERS: PCP Internal Medicine; Visit Provider Internal Medicine | DX: I48.19 Other persistent atrial fibrillation (principal); I42.9 Cardiomyopathy, unspecified; I10 Essential (primary) hypertension; F10.10 Alcohol abuse, uncomplicated; R55 Syncope and collapse; E78.5 Hyperlipidemia, unspecified | CPT/HCPCS: 99212 ==

== ENCOUNTER → 2022-07-11 14:40 | Outpatient (REF) | payer MEDICARE, SELFPAY ==
--- NOTE | 2022-07-11 14:45 | HM_ITS ---
* Procedure in 30 days. Wear time 27 days. * Underlying rhythm is atrial fibrillation. Average ventricular rate 77/Min. * Maximum rate 129/Min. About 7.7% the time, rate > 100/Min. * Bradycardia was present less than 1% the time. * Pauses during sleep time as well as daytime hours noted. Longest pause 5.2 seconds at 2:35pm. * No clear patient symptoms documented. MTDD
== END ==
LOC: HO.CARD 14:40
PROVIDERS: PCP Internal Medicine; Visit Provider Internal Medicine
DX: I48.19 Other persistent atrial fibrillation (principal)
CPT/HCPCS: 93270

== ENCOUNTER 2022-08-14 10:14 | Emergency (ER) | payer MEDICARE, SELFPAY ==
[2022-08-14 10:23] VITALS: BP 124/83; PULSE 93; RESP 18; TEMP 36.6; O2SAT 98; BMI 25.3
[2022-08-14 13:30] VITALS: BP 135/92; PULSE 54; RESP 18; TEMP 36; O2SAT 96
--- NOTE | 2022-08-14 13:31 | ED.SEIZURE ---
HPI - Seizure General Chief Complaint: Seizure <JAIMIE Castillo - Last Filed: 08/14/22 13:33> Stated Complaint: Seizures T-1/Hit head on thinners <AJIMIE Castillo - Last Filed: 08/14/22 13:33> Time Seen by Provider: 08/14/22 14:02 <JAIMIE Castillo - Last Filed: 08/14/22 13:33> Source: family <Jorden Thomas MD - Last Filed: 08/18/22 11:36> Mode of arrival: ambulatory <Jorden Thomas MD - Last Filed: 08/18/22 11:36> Limitations: no limitations <Jorden Thomas MD - Last Filed: 08/18/22 11:36> History of Present Illness HPI Narrative: Patient with 2 witnessed seizures yesterday. one was at the kitchen and one was at the couch. He had an EEG that was negative and is not on seizure medication. The patient does not remember the event but he arouses pretty quickly. <Jorden Thomas MD - Last Filed: 08/18/22 11:36> Seizure History: No <JAIMIE Castillo - Last Filed: 08/14/22 13:33> Related Data Home Medications: Home Medications Medication Instructions Recorded Confirmed acetaminophen 325 mg tablet 650 mg PO Q6H PRN Headache 11/23/21 07/11/22 (Tylenol) cyanocobalamin (vitamin B-12) 1,000 mcg PO DAILY 11/23/21 07/11/22 1,000 mcg tablet metoprolol succinate 50 mg 50 mg PO DAILY 01/10/22 07/11/22 tablet,extended release 24 hr Previous Rx's Medication Instructions Recorded lisinopril 40 mg tablet 40 mg PO DAILY #90 tabs 04/11/22 oseltamivir 30 mg capsule (Tamiflu) 30 mg PO BID 5 days #10 caps 04/21/22 apixaban 5 mg tablet (Eliquis) 5 mg PO BID #30 tabs 05/05/22 amlodipine 5 mg tablet 10 mg PO DAILY 90 days #180 tabs 07/11/22 <JAIMIE Castillo - Last Filed: 08/14/22 13:33> Allergies/Adverse Reactions: Allergies Allergy/AdvReac Type Severity Reaction Status Date / Time No Known Allergies Allergy Verified 08/14/22 10:23 [No Known Allergies*] <JAIMIE Castillo - Last Filed: 08/14/22 13:33> Review of Systems Review of Systems: Yes all other systems are reviewed and are negative <Jorden Thomas MD - Last Filed: 08/18/22 11:36> Neurologic: Denies Sensory deficit (Neuro) <Jorden Thomas MD - Last Filed: 08/18/22 11:36> [facility] [place] Past Medical History Medical History: Medical History Alcohol abuse Atrial fibrillation, new onset Cardiomyopathy Dementia Essential hypertension Persistent atrial fibrillation <JAIMIE Castillo - Last Filed: 08/14/22 13:33> Surgical History: Surgical History History of appendectomy History of cardiac catheterization History of tonsillectomy <JAIMIE Castillo - Last Filed: 08/14/22 13:33> Family History Family History: Family History Father No problems noted. Mother No problems noted. <JAIMIE Castillo - Last Filed: 08/14/22 13:33> Social History Social History: Social History Alcohol intake: former Patient Tobacco Use Status: Never used Tobacco Advance Directives: Yes Advance Directives on File: Yes Advance Directives Date on File: 11/28/21 service: No <JAIMIE Castillo - Last Filed: 08/14/22 13:33> Physical Exam Vital Signs: Vital Signs: Last Vital Signs Temp 96.8 F 08/14/22 13:30 Pulse 54 08/14/22 13:30 Resp 18 08/14/22 13:30 BP 135/92 H 08/14/22 13:30 Pulse Ox 96 08/14/22 13:30 O2 Del Method Room Air 08/14/22 13:30 BMI result Body Mass Index 25.3 <JAIMIE Castillo - Last Filed: 08/14/22 13:33> Vital Signs: Last Vital Signs Temp 96.8 F 08/14/22 13:30 Pulse 54 08/14/22 13:30 Resp 18 08/14/22 13:30 BP 135/92 H 08/14/22 13:30 Pulse Ox 96 08/14/22 13:30 O2 Del Method Room Air 08/14/22 13:30 BMI result Body Mass Index 25.3 <Jorden Thomas MD - Last Filed: 08/18/22 11:36> Const: Other: elderly frail male <Jorden Thomas MD - Last Filed: 08/18/22 11:36> Nutritional Appearance: average body habitus <Jorden Thomas MD - Last Filed: 08/18/22 11:36> Orientation/consciousness: oriented to person <Jorden Thomas MD - Last Filed: 08/18/22 11:36> Limitations: other limitations (dementia) <Jorden Thomas MD - Last Filed: 08/18/22 11:36> HEENT: Head: Yes normal to inspection <Jorden Thomas MD - Last Filed: 08/18/22 11:36> Ears: external ears normal <Jorden Thomas MD - Last Filed: 08/18/22 11:36> General nose exam: Normal external nose present <Jorden Thomas MD - Last Filed: 08/18/22 11:36> Mouth: Normal oral and palatal mucosa present and oropharynx normal <Jorden Thomas MD - Last Filed: 08/18/22 11:36> Throat: Yes posterior oropharynx normal <Jorden Thomas MD - Last Filed: 08/18/22 11:36> Eyes: General: appearance normal, both eyes and all related structures <Jorden Thomas MD - Last Filed: 08/18/22 11:36> Neck: Other: supple <Jorden Thomas MD - Last Filed: 08/18/22 11:36> Neck: Yes normal visual inspection <Jorden Thomas MD - Last Filed: 08/18/22 11:36> Chest: Chest palpation & inspection: normal inspection of the chest <Jorden Thomas MD - Last Filed: 08/18/22 11:36> Resp: Auscultation: clear to auscultation bilaterally <Jorden Thomas MD - Last Filed: 08/18/22 11:36> Cardio: Jugular venous distension: no JVD <Jorden Thomas MD - Last Filed: 08/18/22 11:36> Rate: regular rate <Jorden Thomas MD - Last Filed: 08/18/22 11:36> Rhythm: regular rhythm <Jorden Thomas MD - Last Filed: 08/18/22 11:36> Heart sounds: S1 normal heart sound present and S2 normal heart sound present <Jorden Thomas MD - Last Filed: 08/18/22 11:36> GI: Inspection: Yes normal to inspection <Jorden Thomas MD - Last Filed: 08/18/22 11:36> Palpation (GI): Soft to palpation, nontender and No hepatosplenomegaly present <Jorden Thomas MD - Last Filed: 08/18/22 11:36> Auscultation: normal bowel sounds <Jorden Thomas MD - Last Filed: 08/18/22 11:36> : General: Yes no CVA tenderness <Jorden Thomas MD - Last Filed: 08/18/22 11:36> Back/Spine/Pelvis: Back: no CVA tenderness <Jorden Thomas MD - Last Filed: 08/18/22 11:36> Skin: General skin exam: no rashes or lesions noted <Jorden Thomas MD - Last Filed: 08/18/22 11:36> Neuro: General: oriented to person <Jorden Thomas MD - Last Filed: 08/18/22 11:36> Cranial nerves: Yes CN's II-XII intact bilaterally <Jorden Thomas MD - Last Filed: 08/18/22 11:36> Motor exam (neuro): 5/5 motor strength present throughout <Jorden Thomas MD - Last Filed: 08/18/22 11:36> Sensory Exam: No Sensory deficit (Neuro) <Jorden Thomas MD - Last Filed: 08/18/22 11:36> Extrem: General: Yes normal to inspection <Jorden Thomas MD - Last Filed: 08/18/22 11:36> Psych: Other: at baseline <Jorden Thomas MD - Last Filed: 08/18/22 11:36> Course Course Course Narrative: RME - 77 y/o male with history of dementia, HTN, afib on Eliquis, who presents to the ER for evaluation of 2 witnessed seizures yesterday by his . His reports he fell out of the chair and hit his head when they were playing cards. He is not on anti-epileptic medications. Plan: f/u CT scan and labs <JAIMIE Castillo - Last Filed: 08/14/22 13:33> Reevaluation(s) Reevaluation #1: Patient with likely seizure disorder plan was to start keppra but patient eloped <Jorden Thomas MD - Last Filed: 08/18/22 11:36> Time: 10:27 <Jorden Thomas MD - Last Filed: 08/18/22 11:36> Medical Decision Making Differential Diagnosis Differential Diagnoses: The differential diagnosis associated with the presentation includes (seizure disorder, CVA, brain tumor, electrolyte abnormality, hypotension were all considered) <Jorden Thomas MD - Last Filed: 08/18/22 11:36> Admission/Observation Consideration of admission/observation: Escalation of care including admission/observation considered <Jorden Thomas MD - Last Filed: 08/18/22 11:36> in a 77yo male with episodes of unresponsiveness, admission was considered <Jorden Thomas MD - Last Filed: 08/18/22 11:36> Lab Data MDM Lab Attestation statement: I reviewed the patient's lab results. <Jorden Thomas MD - Last Filed: 08/18/22 11:36> Result Diagrams: 08/14/22 13:46 08/14/22 13:46 <JAIMIE Castillo - Last Filed: 08/14/22 13:33> Labs: Lab Results 08/14/22 08/14/22 Range/Units 13:46 13:46 WBC 12.0 H (4.8-10.8) X10*3/uL RBC 5.55 (4.60-5.80) X10*6/uL Hgb 17.2 (14.0-18.0) g/dl Hct 51.8 (42.0-52.0) % MCV 93.3 (80.0-98.0) fL MCH 31.0 (27.0-33.0) pg MCHC 33.2 (31.0-36.0) g/dl RDW 12.7 (11.0-16.0) % Plt Count 206 (160-400) X10*3/uL MPV 9.1 L (9.4-12.4) fL Immature Gran % (Auto) 0.7 H (0.0-0.4) % Neut % (Auto) 67.3 (45-73) % Lymph % (Auto) 22.6 (20-40) % [place] % (Auto) 7.6 (2-11) % Eos % (Auto) 1.0 (0-4) % Baso % (Auto) 0.8 (0-2) % Lymph # (Auto) 2.7 (1.2-4.9) X10*3/uL [place] # (Auto) 0.9 (0.1-1.2) X10*3/uL Eos # (Auto) 0.1 (0.0-0.4) X10*3/uL Baso # (Auto) 0.1 (0.0-0.2) X10*3/uL Abs Immat Gran (auto) 0.09 H (0.00-0.03) X10*3/uL Absolute Neuts (auto) 8.1 (2.0-8.3) x10*3/uL Absolute Nucleated RBC 0.000 (0.0-0.012) X10*3/uL Nucleated RBC % (auto) 0.0 (0.0-0.2) /100WBC Sodium 138 (135-145) mmol/L Potassium 5.6 H D (3.3-5.1) mmol/L Chloride 104 (96-108) mmol/L Carbon Dioxide 23 (22-29) mmol/L Anion Gap 17 (12-20) BUN 14 (9-16) mg/dL Creatinine 1.53 H (0.5-1.4) mg/dL Estim Creat Clear Calc 35.3 Estimated GFR 44 Random Glucose 108 (60-115) mg/dL Calcium 9.8 D (8.4-10.2) mg/dL Total Bilirubin 2.0 H (0.0-1.0) mg/dL AST 21 (5-37) U/L ALT 12 (0-40) U/L Alkaline Phosphatase 81 (39-117) U/L Total Protein 6.8 (6.5-8.0) g/dL Albumin 4.5 (3.5-5.0) g/dL <JAIMIE Castillo - Last Filed: 08/14/22 13:33> Lab Results 08/14/22 08/14/22 Range/Units 13:46 13:46 WBC 12.0 H (4.8-10.8) X10*3/uL RBC 5.55 (4.60-5.80) X10*6/uL Hgb 17.2 (14.0-18.0) g/dl Hct 51.8 (42.0-52.0) % MCV 93.3 (80.0-98.0) fL MCH 31.0 (27.0-33.0) pg MCHC 33.2 (31.0-36.0) g/dl RDW 12.7 (11.0-16.0) % Plt Count 206 (160-400) X10*3/uL MPV 9.1 L (9.4-12.4) fL Immature Gran % (Auto) 0.7 H (0.0-0.4) % Neut % (Auto) 67.3 (45-73) % Lymph % (Auto) 22.6 (20-40) % [place] % (Auto) 7.6 (2-11) % Eos % (Auto) 1.0 (0-4) % Baso % (Auto) 0.8 (0-2) % Lymph # (Auto) 2.7 (1.2-4.9) X10*3/uL [place] # (Auto) 0.9 (0.1-1.2) X10*3/uL Eos # (Auto) 0.1 (0.0-0.4) X10*3/uL Baso # (Auto) 0.1 (0.0-0.2) X10*3/uL Abs Immat Gran (auto) 0.09 H (0.00-0.03) X10*3/uL Absolute Neuts (auto) 8.1 (2.0-8.3) x10*3/uL Absolute Nucleated RBC 0.000 (0.0-0.012) X10*3/uL Nucleated RBC % (auto) 0.0 (0.0-0.2) /100WBC Sodium 138 (135-145) mmol/L Potassium 5.6 H D (3.3-5.1) mmol/L Chloride 104 (96-108) mmol/L Carbon Dioxide 23 (22-29) mmol/L Anion Gap 17 (12-20) BUN 14 (9-16) mg/dL Creatinine 1.53 H (0.5-1.4) mg/dL Estim Creat Clear Calc 35.3 Estimated GFR 44 Random Glucose 108 (60-115) mg/dL Calcium 9.8 D (8.4-10.2) mg/dL Total Bilirubin 2.0 H (0.0-1.0) mg/dL AST 21 (5-37) U/L ALT 12 (0-40) U/L Alkaline Phosphatase 81 (39-117) U/L Total Protein 6.8 (6.5-8.0) g/dL Albumin 4.5 (3.5-5.0) g/dL <Jorden Thomas MD - Last Filed: 08/18/22 11:36> Independent Interpretation I performed an independent interpretation of an: CT Scan (head ct atrophy no bleed, Cervical Ct djd no fracture) <Jorden Thomsa MD - Last Filed: 08/18/22 11:36> Independent Historian Clinical information obtained from an independent historian. History obtained from or confirmed by: Spouse ( gave the history as the patient has dementia) <Jorden Thomas MD - Last Filed: 08/18/22 11:36> Chronic Conditions Patient?s care impacted by: Other (dementia) <Jorden Thomas MD - Last Filed: 08/18/22 11:36> Discharge Plan Discharge Clinical Impression: Seizure <JAIMIE Castillo - Last Filed: 08/14/22 13:33> Patient Disposition: Elopement <JAIMIE Castillo - Last Filed: 08/14/22 13:33> Prescriptions: No Action lisinopril 40 mg tablet 40 mg PO DAILY Qty: 90 3RF Eliquis 5 mg tablet 5 mg PO BID Qty: 30 5RF cyanocobalamin (vitamin B-12) 1,000 mcg Tablet 1,000 mcg PO DAILY acetaminophen [Tylenol] 325 mg Tablet 650 mg PO Q6H PRN (Reason: Headache) metoprolol succinate 50 mg tablet extended release 24 hr 50 mg PO DAILY oseltamivir [Tamiflu] 30 mg capsule 30 mg PO BID 5 Days Qty: 10 0RF amlodipine 5 mg tablet 10 mg PO DAILY 90 Days Qty: 180 3RF <JAIMIE Castillo - Last Filed: 08/14/22 13:33> Discharge Date/Time: 08/14/22 15:30 <JAIMIE Castillo - Last Filed: 08/14/22 13:33>
[2022-08-14 14:00] LABS: Basophils Absolute Auto 0.1 X10*3/uL (0.0-0.2); Basophils Percent Auto 0.8 % (0-2); Eosinophils Absolute Auto 0.1 X10*3/uL (0.0-0.4); Hematocrit 51.8 % (42.0-52.0); Hemoglobin 17.2 g/dl (14.0-18.0); Imm Gran Abs Auto 0.09 X10*3/uL (0.00-0.03); Imm Gran Pct Auto 0.7 % (0.0-0.4); Lymphocytes Absolute Auto 2.7 X10*3/uL (1.2-4.9); Lymphocytes Percent Auto 22.6 % (20-40); MANUAL DIFF FLAG NO; Mean Corpuscular HGB Conc 33.2 g/dl (31.0-36.0); Mean Corpuscular Volume 93.3 fL (80.0-98.0); Mean Platelet Volume 9.1 fL (9.4-12.4); Monocytes Absolute Auto 0.9 X10*3/uL (0.1-1.2); Monocytes Percent Auto 7.6 % (2-11); Neutrophils Absolute Auto 8.1 x10*3/uL (2.0-8.3); Neutrophils Percent Auto 67.3 % (45-73); Platelet Count 206 X10*3/uL (160-400); Red Blood Count 5.55 X10*6/uL (4.60-5.80); Red Cell Distribution Width 12.7 % (11.0-16.0)
[2022-08-14 14:23] LABS: Alanine Aminotransferase 12 U/L (0-40); Albumin Level 4.5 g/dL (3.5-5.0); Alkaline Phosphatase 81 U/L (39-117); Anion Gap 17 (12-20); Aspartate Amino Transferase 21 U/L (5-37); Blood Urea Nitrogen 14 mg/dL (9-16); Calcium 9.8 mg/dL (8.4-10.2); Carbon Dioxide 23 mmol/L (22-29); Chloride 104 mmol/L (96-108); Creatinine Clr Calc Pharmacy 35.3; Estimated Glomerular Filt Rate 44; Glucose Random 108 mg/dL (60-115); Potassium 5.6 mmol/L (3.3-5.1); Sodium 138 mmol/L (135-145); Total Protein 6.8 g/dL (6.5-8.0)
== END 2022-08-14 15:30 | disposition left against medical advice (07) ==
PROVIDERS: Physician Assistant Medical; Emergency Provider Emergency Medicine; PCP Internal Medicine
DX: R56.9 Unspecified convulsions (principal); R51.9 Headache, unspecified; M54.2 Cervicalgia; Z79.899 Other long term (current) drug therapy
CPT/HCPCS: 36415; 70450; 72125; 80053; 85025; 99281; 99284

== ENCOUNTER → 2022-09-20 12:34 | Outpatient (BNVA) | payer MEDICARE, SELFPAY | PROVIDERS: PCP Internal Medicine; Visit Provider Internal Medicine | DX: I48.19 Other persistent atrial fibrillation (principal); I42.9 Cardiomyopathy, unspecified; I10 Essential (primary) hypertension; F10.10 Alcohol abuse, uncomplicated; Z79.01 Long term (current) use of anticoagulants; Z79.899 Other long term (current) drug therapy | CPT/HCPCS: 99212 ==

== ENCOUNTER 2022-11-16 11:08 | Outpatient (REF) | payer MEDICARE, SELFPAY ==
[2022-11-16 12:24] LABS: Alanine Aminotransferase 17 U/L (0-40); Alkaline Phosphatase 81 U/L (39-117); Aspartate Amino Transferase 25 U/L (5-37); Bilirubin Direct 0.4 mg/dL (0.0-0.5); Bilirubin Total 1.5 mg/dL (0.0-1.0); Cholesterol 141 mg/dL; HDL Cholesterol 42 mg/dL; LDL Cholesterol Calculated 75 mg/dl; Total Protein 6.2 g/dL (6.5-8.0); Triglycerides 124 mg/dL
== END 2022-11-16 11:09 | disposition home or self-care (01) ==
LOC: HO.LNP 11:08
PROVIDERS: Visit Provider Internal Medicine
DX: E78.00 Pure hypercholesterolemia, unspecified (principal)
CPT/HCPCS: 80061; 80076

== ENCOUNTER 2023-02-27 13:16 | Outpatient (AMB) | payer MEDICARE, SELFPAY ==
--- NOTE | 2023-02-27 13:21 | A.OFFVIS_ITS ---
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 Accompanied by: Self / Same As Patient Allergies No Known Allergies [No Known Allergies*] Allergy (Verified 02/27/23 13:23) Medication List - Last Reconciled 02/27/23 by Burke Felix MD acetaminophen (Tylenol) 650 mg PO Q6H PRN amlodipine 10 mg (2 x 5 mg) PO DAILY 90 days apixaban (Eliquis) 5 mg PO BID atorvastatin 20 mg PO DAILY cyanocobalamin (vitamin B-12) 1,000 mcg PO DAILY levetiracetam 250 mg PO DIRECTED metoprolol succinate ER 50 mg PO DAILY oseltamivir (Tamiflu) 30 mg PO BID HPI HPI Comments History of Present Illness Details Darci returns for follow-up regarding atrial fibrillation as well as cardiomyopathy. Overall, he is feeling good. No complaints like angina or shortness of breath or palpitations or in fact anything cardiac sounding. According to patient as well as , he is feeling better and has gained some weight as well. Compliant with medications. [facility] Medical History Alcohol abuse Atrial fibrillation, new onset Cardiomyopathy Dementia Essential hypertension Persistent atrial fibrillation Surgical History History of cardiac catheterization History of tonsillectomy History of appendectomy Family History Father No problems noted. Mother No problems noted. Social History Alcohol intake: former Patient Tobacco Use Status: Never used Tobacco Advance Directives Date on File: 11/28/21 service: No Review of Systems Const All systems reviewed & are unremarkable except as noted in HPI and below Reports as per HPI and Reports no additional complaints Eyes Reports as per HPI and Denies no additional complaints ENT Denies no additional complaints and Reports as per HPI Card Reports as per HPI, Reports no additional complaints, Denies acrocyanosis, Denies chest pain, Denies leg edema, Denies lightheadedness, Denies palpitations and Denies dyspnea Resp Reports as per HPI, Denies no additional complaints and Denies dyspnea GI Reports as per HPI and Denies no additional complaints Reports no additional complaints and Reports as per HPI Musc Reports no additional complaints and Reports as per [facility] Skin/Breast Reports system reviewed and no additional complaints, except as documented Neuro Reports no additional complaints and Reports as per HPI Psych Reports no additional complaints and Reports as per HPI Endo Reports no additional complaints, Reports as per HPI and Denies palpitations Brandan/Lymph Reports no additional complaints and Reports as per HPI Aller/Immun Reports no additional complaints and Reports as per HPI Physical Exam Vital Signs: Last Vital Signs Pulse 65 02/27/23 13:22 BP 132/78 02/27/23 13:22 BMI result Body Mass Index 25.5 Const General: comfortable and no acute distress Orientation/consciousness: patient oriented x3 HEENT Other: Unremarkable Head: Yes normal to inspection Neck Neck: Yes normal visual inspection Chest Chest palpation & inspection: normal inspection of the chest Resp Auscultation: clear to auscultation bilaterally Cardio Palpation: normal PMI Heart sounds: S1 normal heart sound present, S2 normal heart sound present, no gallops, no murmurs and no rubs GI Palpation (GI): Soft to palpation Back/Spine/Pelvis Other: unremarkable Skin General skin exam: no rashes or lesions noted Neuro General: patient oriented x3 Extrem General: Yes normal to inspection Psych Mental Status: mental status grossly normal Assessment & Plan Assessment & Plan (1) Persistent atrial fibrillation: Code(s): I48.19 - Other persistent atrial fibrillation Plan: Continue beta-blockers and anticoagulation. No changes made today. (2) Cardiomyopathy: Code(s): I42.9 - Cardiomyopathy, unspecified Plan: Echocardiogram with LVEF of 35-40%. Similar to before. In the cardiac catheterization, no significant CAD. He is awaiting a repeat echocardiogram next month. No clinical symptoms of congestive heart failure. For meds, continue metoprolol ER. Due to low blood pressure issues as well as hyperkalemia, not on lisinopril. Not on spironolactone for the same reason. Last potassium is 5.6. (3) Essential hypertension: Code(s): I10 - Essential (primary) hypertension Plan: Blood pressures have been up and down. Today it has been normal. Already off lisinopril. Amlodipine does not clear but they think it is 5 mg daily. No changes made. (4) Alcohol abuse: Code(s): F10.10 - Alcohol abuse, uncomplicated Plan: No longer drinking. Plan Discussed with who came for appointment. Medications: Changed From oseltamivir (Tamiflu) 30 mg PO BID 5 days 10 caps 0RF To oseltamivir (Tamiflu) 30 mg PO BID Coding Level of Care Code Est Pt Level 4 (49345) Diagnoses Persistent atrial fibrillation I48.19 Cardiomyopathy I42.9 Essential hypertension I10 Alcohol abuse F10.10
[2023-02-27 13:22] VITALS: BP 132/78; PULSE 65; BMI 25.5
== END 2023-02-27 13:41 | disposition home or self-care (01) ==
PROVIDERS: PCP Internal Medicine; Visit Provider Internal Medicine
DX: I48.19 Other persistent atrial fibrillation (principal); I42.9 Cardiomyopathy, unspecified; I10 Essential (primary) hypertension; F10.10 Alcohol abuse, uncomplicated
CPT/HCPCS: 99214

== ENCOUNTER → 2023-02-27 13:16 | Outpatient (BNVA) | payer MEDICARE, SELFPAY | PROVIDERS: PCP Internal Medicine; Visit Provider Internal Medicine | DX: I48.19 Other persistent atrial fibrillation (principal); I42.9 Cardiomyopathy, unspecified; I10 Essential (primary) hypertension; F10.10 Alcohol abuse, uncomplicated | CPT/HCPCS: 99212 ==

== ENCOUNTER → 2023-03-22 09:37 | Outpatient (REF) | payer MEDICARE, SELFPAY ==
--- NOTE | 2023-03-22 09:39 | CA_ITS ---
Transthoracic Echocardiogram Patient (Last, First, Middle): Darci Paez, Gender: Male Date of : 1945 Age: 77 Procedure Date: 03/22/2023 Procedure Type: Transthoracic Echocardiogram Location: OP Height: 167.64 cm Weight: 71.22 kg BSA: 1.80 m2 Heart Rate: 81 bpm BP: 130 / 76 mmHg End Lathe Operator: VIOLA/ZOEY Referring MD: Burke Felix MD Symptoms: I42.9 - Cardiomyopathy, unspecified Study Quality: Adequate w contrast ECG Rhythm: Atrial Fibrillation Conclusions: - The left ventricular systolic function is low normal. The visually estimated ejection fraction is between 50-55%. Findings Procedure Information Contrast agent, definity, is being given per protocol without apparent complications. Left Ventricle Normal left ventricular cavity size. There is mildly increased left ventricular wall thickness. The left ventricular systolic function is low normal. The visually estimated ejection fraction is between 50-55%. Diastolic function is indeterminate on the basis of available data. There is moderate septal asymmetric hypertrophy. Right Ventricle Normal right ventricular cavity size. There is mild to moderately decreased right ventricular systolic function. Atria Both atria are normal in size. Aortic Valve There is a normal trileaflet aortic valve. There is no aortic valve stenosis. There is no aortic valve regurgitation. Mitral Valve The mitral valve appears normal. There is no mitral valve regurgitation. There is no mitral valve stenosis. Pulmonic Valve The pulmonic valve is likely normal. Tricuspid Valve There is trace tricuspid valve regurgitation. There is no evidence of pulmonary hypertension. Great Vessels The asc aorta is normal in size. Venous The inferior vena cava was not well visualized. Pericardium/Pleural There is no evidence of pericardial effusion. Prior Study Comparison Changes noted compared to prior study dated: 12/16/2021. Improved LVEF. Measurements 2D Linear Measurements IVSd: 1.37 0.6-0.9/0.6-1.0 cm LVIDd: 4.53 3.9-5.3/4.2-5.9 cm LVIDd Index: 2.52 2.4-3.2/2.2-3.1 cm/m2 LVIDs: 3.90 2.0-3.6 cm LVPWd: 1.07 0.7-1.1 cm LA Diam: 3.10 2.7-3.8/3.0-4.0 cm LAIDs Index: 1.72 1.5-2.3 cm/m2 LV Mass: 255.48 67-162/88-224 g LV Mass Index: 141.93 43-95/49-115 g/m2 LVOT Diam: 2.10 3.0+(-)1.3 cm 2D Systolic Function EF 4C: 51.80 >55% EF 2C: 47.40 >55% EF BiP: 49.00 >55% Mitral Valve MV Pk E: 0.76 Aortic Valve AoV Pk Pérez: 1.00 AoV Pk Grad: 4.00 SINGH: 2.57 LVOT LVOT Pk Pérez: 0.74 LVOT Mn Pérez: 0.52 LVOT VTI: 0.14 LVOT Pk Grad: 2.00 LVOT Mn Grad: 1.00 LVOT Diam: 2.10 LVOT Area: 3.46 Diastolic Function MV Pk E: 0.76 Right Ventricle TAPSE (mm): 12.60 TVS' Pérez: 8.16 Tricuspid Valve TR Pk Pérez: 1.97 TR Pk Grad: 16.00 RA Press: 3.00 RVSP: 19.00 Great Vessels Aorta Sinus of Valsalva: 3.70 2.0-3.5 cm Ao Asc: 3.70 2.1-3.4 cm Updated in Other Vendor System with Status of Final Burke Felix MD electronically signed on 03/22/2023 12:11:57 PM with status of Final
== END ==
LOC: HO.CARD 09:37
PROVIDERS: PCP Internal Medicine; Visit Provider Internal Medicine
DX: I42.9 Cardiomyopathy, unspecified (principal)
CPT/HCPCS: 93306; Q9957

== ENCOUNTER → 2023-03-22 09:39 | Outpatient (BNV) | payer MEDICARE, SELFPAY | PROVIDERS: PCP Internal Medicine; Visit Provider Internal Medicine | DX: I42.9 Cardiomyopathy, unspecified (principal) | CPT/HCPCS: 93306 ==

== ENCOUNTER 2023-06-11 11:05 | Outpatient (REF) | payer MEDICARE, SELFPAY ==
[2023-06-11 11:16] LABS: MANUAL DIFF FLAG NO
[2023-06-11 11:58] LABS: Basophils Absolute Auto 0.1 X10*3/uL (0.0-0.2); Basophils Percent Auto 1.1 % (0-2); Eosinophils Absolute Auto 0.4 X10*3/uL (0.0-0.4); Eosinophils Percent Auto 3.5 % (0-4); Hematocrit 52.1 % (42.0-52.0); Hemoglobin 17.5 g/dl (14.0-18.0); Imm Gran Abs Auto 0.09 X10*3/uL (0.00-0.03); Imm Gran Pct Auto 0.9 % (0.0-0.4); Lymphocytes Percent Auto 39.1 % (20-40); Mean Corpuscular HGB Conc 33.6 g/dl (31.0-36.0); Mean Corpuscular Hemoglobin 31.5 pg (27.0-33.0); Mean Corpuscular Volume 93.9 fL (80.0-98.0); Mean Platelet Volume 9.7 fL (9.4-12.4); Monocytes Absolute Auto 0.9 X10*3/uL (0.1-1.2); Neutrophils Absolute Auto 4.8 x10*3/uL (2.0-8.3); Neutrophils Percent Auto 46.4 % (45-73); Platelet Count 228 X10*3/uL (160-400); Red Blood Count 5.55 X10*6/uL (4.60-5.80); Red Cell Distribution Width 12.5 % (11.0-16.0); White Blood Count 10.3 X10*3/uL (4.8-10.8)
[2023-06-11 11:59] LABS: Appearance Urine Clear; Color Urine Yellow; Glucose Urine UA Negative (Negative); Leukocyte Esterase Urine Negative (Negative); Nitrite Urine Negative (Negative); Specific Gravity - Urine 1.015 (1.005-1.025); Urine Blood Negative (Negative); Urine Ketones Negative (Negative); Urine Protein Negative (Neg-Trace)
[2023-06-11 12:02] LABS: Bacteria Urine None Seen (None Seen); Hyaline Casts Urine 0-2 /LPF (0-2); RBC Urine 0-2 /HPF (0-2); Squamous Epithelial Cell Urine 0-2 /HPF (0-2); WBC Urine 0-5 /HPF (0-5)
[2023-06-11 12:13] LABS: Estimated Average Glucose 114 mg/dL; Hemoglobin A1c % 5.6 % (<6.0)
[2023-06-11 12:17] LABS: Alanine Aminotransferase 16 U/L (0-40); Albumin Level 3.8 g/dL (3.5-5.0); Alkaline Phosphatase 183 U/L (39-117); Anion Gap 12 (12-20); Aspartate Amino Transferase 26 U/L (5-37); Bilirubin Total 1.8 mg/dL (0.0-1.0); Blood Urea Nitrogen 10 mg/dL (9-16); Calcium 9.1 mg/dL (8.4-10.2); Carbon Dioxide 27 mmol/L (22-29); Chloride 104 mmol/L (96-108); Cholesterol 145 mg/dL (<200); Estimated Glomerular Filt Rate 57; Glucose Fasting 99 mg/dL (60-99); HDL Cholesterol 37 mg/dL (>40); LDL Cholesterol Calculated 84 mg/dL (<100); Potassium 4.2 mmol/L (3.3-5.1); Sodium 139 mmol/L (135-145); Total Protein 6.2 g/dL (6.5-8.0); Triglycerides 121 mg/dL (<150)
[2023-06-11 12:37] LABS: PSA,Total (Free>4and<10) 1.41 ng/mL (0.00-4.00)
[2023-06-11 12:51] LABS: Folate 13.4 ng/mL (> or = 4.0); Vitamin B12 1165 pg/mL (200-900)
[2023-06-11 13:15] LABS: Creatinine Urine 95.81 mg/dL; Microalbum/Creatinine Ratio Ur 8.3 ug/mg cr (<30)
== END 2023-06-11 11:06 | disposition home or self-care (01) ==
LOC: HO.LNP 11:05
PROVIDERS: Visit Provider Internal Medicine
DX: Z00.00 Encounter for general adult medical examination without abnormal findings (principal); Z12.5 Encounter for screening for malignant neoplasm of prostate; I10 Essential (primary) hypertension; R73.03 Prediabetes; E78.00 Pure hypercholesterolemia, unspecified; D69.6 Thrombocytopenia, unspecified; E53.8 Deficiency of other specified B group vitamins
CPT/HCPCS: 80053; 80061; 81001; 82043; 82570; 82607; 82746; 83036; 84153; 85025

== ENCOUNTER 2023-06-19 13:16 | Outpatient (REF) | payer MEDICARE, SELFPAY ==
[2023-06-23 14:53] LABS: Alk.Phos Iso. Macrohepatic 0 % (<=0); Alk.Phos Isoenzymes Bone 48 % (28-66); Alk.Phos Isoenzymes Intest 0 % (1-24); Alk.Phos Isoenzymes Liver 52 % (25-69); Alk.Phos Isoenzymes Placental 0 % (<=0); Alk.Phos Isoenzymes Total 126 U/L (35-144)
== END 2023-06-19 13:17 | disposition home or self-care (01) ==
LOC: HO.LNP 13:16
PROVIDERS: Visit Provider Internal Medicine
DX: R74.8 Abnormal levels of other serum enzymes (principal)
CPT/HCPCS: 84080

== ENCOUNTER 2023-08-30 13:05 | Outpatient (AMB) | payer MEDICARE, SELFPAY ==
--- NOTE | 2023-08-30 13:08 | MHC.OFFVIS ---
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 Overall, he is feeling good. No complaints like angina or shortness of breath or palpitations or in fact anything cardiac sounding. states that there have been no specific concerns. [facility] Medical History Alcohol abuse Atrial fibrillation, new onset Cardiomyopathy Dementia Essential hypertension Persistent atrial fibrillation Surgical History History of cardiac catheterization History of tonsillectomy History of appendectomy Family History Father No problems noted. Mother No problems noted. Social History Alcohol intake: former Patient Tobacco Use Status: Never used Tobacco Advance Directives Date on File: 11/28/21 service: No Review of Systems Const Denies chills, Denies fatigue, Denies fever(s), Denies frequent falls, Denies weakness, Denies weight gain and Denies weight loss ENT Denies dizziness Card Denies chest pain, Denies leg edema, Denies lightheadedness, Denies palpitations, Denies dyspnea and Denies dyspnea on exertion Resp Denies cough, Denies dyspnea and Denies dyspnea on exertion GI Denies hematochezia Musc Denies abnormal gait, Denies muscle weakness, Denies numbness, Denies radiating pain into limb and Denies tingling Neuro Denies abnormal gait, Denies dizziness, Denies frequent falls, Denies numbness, Denies tingling and Denies weakness Endo Denies fatigue and Denies palpitations Physical Exam Vital Signs: Last Vital Signs Pulse 72 08/30/23 13:09 BP 140/60 H 08/30/23 13:09 BMI result Body Mass Index 25.8 Const General: comfortable and no acute distress Orientation/consciousness: patient oriented x3 HEENT Other: Unremarkable Head: Yes normal to inspection Neck Neck: Yes normal visual inspection Chest Chest palpation & inspection: normal inspection of the chest Resp Auscultation: clear to auscultation bilaterally Cardio Palpation: normal PMI Heart sounds: S1 normal heart sound present, S2 normal heart sound present, no gallops, no murmurs and no rubs GI Palpation (GI): Soft to palpation Back/Spine/Pelvis Other: unremarkable Skin General skin exam: no rashes or lesions noted Neuro General: patient oriented x3 Extrem General: Yes normal to inspection Psych Mental Status: mental status grossly normal Office Procedures EKG Details: EKG with atrial fibrillation at 72/Min; septal infarct; [place]. [id number], Complete Assessment & Plan Assessment & Plan (1) Persistent atrial fibrillation: Code(s): I48.19 - Other persistent atrial fibrillation Category: Medical Plan: Continue beta-blockers and anticoagulation. (2) Cardiomyopathy: Code(s): I42.9 - Cardiomyopathy, unspecified Category: Medical Plan: In the most recent echocardiogram, LVEF is 50-55%. Prior to that, LVEF 35-40%. In the cardiac catheterization, no significant CAD. Clinically, no heart failure symptoms or signs. Continue beta-blockers. Due to low blood pressure issues as well as hyperkalemia, not on lisinopril. Not on spironolactone for the same reason. (3) Essential hypertension: Code(s): I10 - Essential (primary) hypertension Category: Medical Plan: Blood pressures have been up and down. No further changes made today. Remains on amlodipine. (4) Alcohol abuse: Code(s): F10.10 - Alcohol abuse, uncomplicated Category: Social Hx Plan: No longer drinking. Plan Discussed with who came for appointment. Coding Level of Care Code Est Pt Level 4 (97628) Diagnoses Persistent atrial fibrillation I48.19 Cardiomyopathy I42.9 Essential hypertension I10 Alcohol abuse F10.10 CPT Codes EKG - CPT: 86259-[id number], Complete ([id number])
[2023-08-30 13:09] VITALS: BP 140/60; PULSE 72; BMI 25.8
== END 2023-08-30 13:29 | disposition home or self-care (01) ==
PROVIDERS: PCP Internal Medicine; Visit Provider Internal Medicine
DX: I48.19 Other persistent atrial fibrillation (principal); I42.9 Cardiomyopathy, unspecified; I10 Essential (primary) hypertension; F10.10 Alcohol abuse, uncomplicated
CPT/HCPCS: 93010; 99214

== ENCOUNTER → 2023-08-30 13:05 | Outpatient (BNVA) | payer MEDICARE, SELFPAY | PROVIDERS: PCP Internal Medicine; Visit Provider Internal Medicine | DX: I48.19 Other persistent atrial fibrillation (principal); I42.9 Cardiomyopathy, unspecified; I10 Essential (primary) hypertension; F10.10 Alcohol abuse, uncomplicated | CPT/HCPCS: 93005; 99212 ==

== ENCOUNTER 2023-10-02 10:40 | Outpatient (AMB) | payer MEDICARE, SELFPAY ==
[2023-10-02 10:41] VITALS: BP 146/88; PULSE 68; BMI 25.8
--- NOTE | 2023-10-02 10:41 | MHC.OFFVIS ---
Vital Signs 10/02/23 10:41 Height 5 ft 6 in Weight 160 lb BMI 25.8 BP 146/88 H Blood Pressure Location Rt brachial Position Sitting Pulse 68 Intake Visit Reasons: right elbow hematoma s/p fall Intake Note: Patient scheduled as an urgent appointment for large hematoma on Rt elbow. Fell down two steps a month ago. Optician Manager Required: No Accompanied by: Spouse Allergies No Known Allergies [No Known Allergies*] Allergy (Verified 10/02/23 10:45) HPI Comments Details: Patient presents with his . Patient has a right elbow mass. There unsure how long he has had this. There was concern that because he is on anticoagulation at this may be secondary to trauma although he does not recall any specific incident that would have caused this. Patient has no other lumps or issues elsewhere. Patient is followed by [facility] for his atrial fibrillation for which he has on the [facility]. Chart was reviewed and patient evaluated [facility] Medical History Dementia Persistent atrial fibrillation Cardiomyopathy Essential hypertension Alcohol abuse Atrial fibrillation, new onset Surgical History History of cardiac catheterization History of tonsillectomy History of appendectomy Family History Father No problems noted. Mother No problems noted. Social History Alcohol intake: former Patient Tobacco Use Status: Never used Tobacco Advance Directives Date on File: 11/28/21 service: No Physical Exam Vital Signs: Last Vital Signs Pulse 68 10/02/23 10:41 BP 146/88 H 10/02/23 10:41 BMI result Body Mass Index 25.8 Chest Other: Chest breath sounds bilaterally, HS 1 in 2, pulse consistent with AFib GI Other: Abdomen is soft, benign Extrem Other: Patient has a large soft tissue mass involving the right elbow. No over lying ecchymosis or infection demonstrated. Under sterile technique this was aspirated and was a dry tap. Clinically I think this is consistent with an enlarged bursa of the right elbow. Assessment & Plan Assessment & Plan (1) Other bursal cyst, right elbow: Code(s): M71.321 - Other bursal cyst, right elbow Category: Surgical Plan Therapeutic options were discussed with the patient and his which include conservative therapy/observation or excision. They would like to have this excised. Risks, benefits, alternatives of the procedure reviewed with the patient's and included but not limited to bleeding, infection, recurrence, numbness, pain, scarring, wound dehiscence, seroma formation and wished to proceed. We will contact patient's cardiology physician regarding Eliquis being held few days prior to the procedure. All questions answered. Arrangements were made for this once details have been finalized. Coding Level of Care Code New Pt Level 5 (13268) Diagnoses Other bursal cyst, right elbow M71.321
== END 2023-10-02 11:41 | disposition home or self-care (01) ==
PROVIDERS: PCP Internal Medicine; Visit Provider Surgery
DX: M71.321 Other bursal cyst, right elbow (principal)
CPT/HCPCS: 99204

== ENCOUNTER → 2023-10-02 10:40 | Outpatient (BNVA) | payer MEDICARE, SELFPAY | PROVIDERS: PCP Internal Medicine; Visit Provider Surgery | DX: M71.321 Other bursal cyst, right elbow (principal) | CPT/HCPCS: 99202 ==

== ENCOUNTER 2023-11-02 08:21 | Day surgery (SDC) | payer MEDICARE, SELFPAY ==
[2023-10-22 11:15] VITALS: BMI 25.8
--- NOTE | 2023-11-01 15:57 | MHC.SHP ---
Pre-Procedural Eval Section A - 24 Hr Update-Section A only Date of Service: 11/01/23 The patient is an INPATIENT: No Changes since office visit: No Cold of Flu in the past 2 weeks, No New Medical Problems, No Changes in Medication and No Patient answered all questions Section B - Complete if H&P > 30 days Chief Complaint: Other bursal cyst, right elbow Allergies: Allergies Allergy/AdvReac Type Severity Reaction Status Date / Time No Known Allergies Allergy Verified 10/02/23 10:45 [No Known Allergies*] Review of Systems Sugical H&P ROS: Negative: Constitution, Cardiovascular, Respiratory, Neurological, Psychiatric, Hem-Onc, Allergic/Immunologic, Gastrointestinal, Genitourinary, Musculoskeletal, Integumentary, Endocrine and Eyes/Ears/Nose/Throat Exam Surgical H&P Exam: Normal: HEENT, Normal: Heart, Normal: Lungs, Normal: Extremities, Normal: Abdomen, Normal: Skin and Normal: Neurological Plan I have reviewed the history and physical and performed a pertinent physical examination on my patient. No changes have occurred unless specified. Time Spent With Patient Time: Total time managing care of this patient today ____ minutes.
[2023-11-02] VITALS (10 sets, daily range): BP systolic 121–159; BP diastolic 79–96; PULSE 54–72; RESP 12–18; TEMP 36.1–36.5; O2SAT 94–99
[2023-11-02] MEDS: Lactated Ringers 1,000 ML 100 ML IVCONT (09:05)
--- NOTE | 2023-11-02 09:35 | HO.ANESPROP2 ---
Documented by User: Gi Pan NP 10/23/23 08:18 HPI - Anesthesia Eval Consult details Narrative: 78yo M for Right Wide Local Excision Elbow Mass, 11/02/23 Pt with dementia. is HCP Follows [facility] [place] cardiology for afib (eliquis ok to hold), cardiomyopathy (stable). Last office visit 08/2023 and optimized to proceed with surgery Hx ETOH, no longer drinking PMFSH Active Problems Active Problems: All Active Problems Other bursal cyst, right elbow (Acute) Other and unspecified hyperlipidemia (Acute) Loss of consciousness (Acute) Complex partial seizure (Acute) Syncope (Acute) Cardiomyopathy (Acute) Persistent atrial fibrillation (Acute) Essential hypertension (Acute) Past Medical History Medical History Complex partial seizure Dementia Persistent atrial fibrillation Cardiomyopathy Essential hypertension Alcohol abuse Family History Family History Father No problems noted. Mother No problems noted. Surgical History Surgical History (Updated 10/22/23 @ 11:15 by Lizette Martinez RN) H/O colonoscopy Hx of cardiac catheterization History of tonsillectomy History of appendectomy Social History Social History Are you a primary child care team lead to a significant other at home: No Do you presently have visiting nurse or other home services: No Alcohol intake: former Patient Tobacco Use Status: Never used Tobacco Use of substances other than those prescribed or required for medical reasons: No Have you been hit, kicked, punched, or otherwise hurt by someone within the past year? If so, by whom?: No Are you DNR?: Yes Advance Directives: Yes ( is HCP & has DNR order) Advance Directives Information Provided: Yes Advance Directives on File: Yes Advance Directives Date on File: 11/28/21 Recently lost weight without trying: No Eating poorly because of decreased appetite: No Nutrition Risks: Surgical patient >75years Poor oral hygiene: No (upper 7 lower full dentures) service: No Meds Allergies Allergy/AdvReac Type Severity Reaction Status Date / Time No Known Allergies Allergy Verified 10/02/23 10:45 [No Known Allergies*] Home Medications ?Medication ?Instructions ?Recorded ?Confirmed ?Last Taken ?Type acetaminophen 325 mg tablet 650 mg PO Q6H PRN Headache 11/23/21 10/22/23 Unknown History (Tylenol) cyanocobalamin (vitamin B-12) 1,000 mcg PO DAILY 11/23/21 10/22/23 11/22/21 History 1,000 mcg tablet metoprolol succinate 50 mg 50 mg PO DAILY 01/10/22 10/22/23 11/02/23 History tablet,extended release 24 hr levetiracetam 250 mg tablet 250 mg PO DIRECTED 08/31/22 10/22/23 11/02/23 History atorvastatin 20 mg tablet 20 mg PO DAILY 09/20/22 10/22/23 Unknown History Exam Height,Weight and Vital Signs: Height 5 ft 6 in Weight 72.575 kg Pertinent Lab Results Pertinent Lab Results: Laboratory Tests 06/11/23 08:00 WBC 10.3 Hgb 17.5 Hct 52.1 H Plt Count 228 Sodium 139 Potassium 4.2 Chloride 104 Carbon Dioxide 27 BUN 10 Creatinine 1.22 Narrative Narrative: EKG 08/2023 atrial fibrillation at 72/Min; septal infarct; PVC. ECHO 03/2023 Conclusions: - The left ventricular systolic function is low normal. The visually estimated ejection fraction is between 50-55%. Findings Procedure Information Contrast agent, definity, is being given per protocol without apparent complications. Left Ventricle Normal left ventricular cavity size. There is mildly increased left ventricular wall thickness. The left ventricular systolic function is low normal. The visually estimated ejection fraction is between 50-55%. Diastolic function is indeterminate on the basis of available data. There is moderate septal asymmetric hypertrophy. Assessment and Plan Assessment Anesthesia Assessment: Chart Reviewed Documented by User: Alma Burkett DO 11/02/23 09:36 HPI - Anesthesia Eval Consult details Narrative: 78yo M for Right Wide Local Excision Elbow Mass, 11/02/23 Pt with dementia. is HCP Follows [facility] [place] cardiology for afib (eliquis ok to hold), cardiomyopathy EF 50-55% (stable). Last office visit 08/2023 and optimized to proceed with surgery Hx ETOH, no longer drinking PMFSH Past Medical History Medical History Complex partial seizure Dementia Persistent atrial fibrillation Cardiomyopathy Essential hypertension Alcohol abuse Family History Family History Father No problems noted. Mother No problems noted. Family history of problems with anesthesia: No Surgical History Surgical History (Updated 10/22/23 @ 11:15 by Lizette Martinez RN) H/O colonoscopy Hx of cardiac catheterization History of tonsillectomy History of appendectomy History of Problems with Anesthesia: No Social History Social History Are you a primary child care team lead to a significant other at home: No Do you presently have visiting nurse or other home services: No Alcohol intake: former Patient Tobacco Use Status: Never used Tobacco Use of substances other than those prescribed or required for medical reasons: No Have you been hit, kicked, punched, or otherwise hurt by someone within the past year? If so, by whom?: No Are you DNR?: Yes Advance Directives: Yes ( is HCP & has DNR order) Advance Directives Information Provided: Yes Advance Directives on File: Yes Advance Directives Date on File: 11/28/21 Recently lost weight without trying: No Eating poorly because of decreased appetite: No Nutrition Risks: Surgical patient >75years Poor oral hygiene: No (upper 7 lower full dentures) service: No Meds Allergies Allergy/AdvReac Type Severity Reaction Status Date / Time No Known Allergies Allergy Verified 10/02/23 10:45 [No Known Allergies*] Home Medications ?Medication ?Instructions ?Recorded ?Confirmed ?Last Taken ?Type acetaminophen 325 mg tablet 650 mg PO Q6H PRN Headache 11/23/21 10/22/23 Unknown History (Tylenol) cyanocobalamin (vitamin B-12) 1,000 mcg PO DAILY 11/23/21 10/22/23 11/22/21 History 1,000 mcg tablet metoprolol succinate 50 mg 50 mg PO DAILY 01/10/22 10/22/23 11/02/23 History tablet,extended release 24 hr levetiracetam 250 mg tablet 250 mg PO DIRECTED 08/31/22 10/22/23 11/02/23 History atorvastatin 20 mg tablet 20 mg PO DAILY 09/20/22 10/22/23 Unknown History Exam Exam Date and Time: November 02, 2023 0931 Height,Weight and Vital Signs: Height 5 ft 6 in Weight 72.575 kg Vital Signs Temperature 97.7 F 11/02/23 08:57 Pulse Rate 60 11/02/23 08:57 Respiratory Rate 16 11/02/23 08:57 Blood Pressure 143/96 H 11/02/23 08:57 Pulse Oximetry 95 11/02/23 08:57 Oxygen Delivery Method Room Air 11/02/23 08:57 Temperature 97.7 F 11/02/23 08:57 Pulse Rate 60 11/02/23 08:57 Respiratory Rate 16 11/02/23 08:57 Blood Pressure 143/96 H 11/02/23 08:57 Pulse Oximetry 95 11/02/23 08:57 Oxygen Delivery Method Room Air 11/02/23 08:57 Airway Mallampati Class: II TM Dist: >3cm Neck ROM: Full Denture: Upper and Lower Heart: S1S2 Lungs: CTAB Assessment and Plan Assessment Anesthesia Assessment: Anesthesia Plan Discussed and Chart Reviewed Final Anesthetic Review Family History of Problems with Anesthesia: No History of Problems with Anesthesia: No NPO: Yes ASA Class: III Final Preanesthetic Review: No Changes in Pt Med Stat, Meds/Allgs Chart Reviewed, Consent Obtained/Reviewed, Anes Risks/Benef Reviewed and DNR Form (If Appl.) (reversed for intraoperative period) Patient Risk: Intermediate Procedure Risk: Low Anesthetic Plan Anesthetic Plan: GA and Agree w/ Assess. and Plan Disposition: Standard PACU
--- NOTE | 2023-11-02 11:31 | P.OP_ITS ---
Operative Note Operative Note Date of Service: 11/02/23 Narrative: Preoperative diagnosis: [] Right elbow bursa/mass Postop diagnosis: [] The same Procedure [] wide excision right elbow mass Surgeon: [] Capo Community Resource Officer: [] Ariadne Type of Anesthesia: [] LMA Findings: [] Approximately 15 x 10 cm right elbow mass consistent with a chart bursa Procedure; patient brought to the operating room, placed on operative table in supine position, after adequate level of general anesthesia was induced, the right upper extremity was prepped and draped in usual sterile fashion. Using a by elliptical incision encompassing the mass in question in the right elbow, this carried down through skin, subcutaneous tissue, were superior and inferior skin flaps were developed and circumferentially dissection of a large mass consistent with a bursa was uneventfully excised using Bovie. Specimen sent to pathology. Wound was irrigated, secured hemostasis, and closed in the following manner; interrupted inverted deep dermal 2-0 Vicryl sutures were initially placed. Skin was closed using simple 2-0 Prolene sutures followed by sterile dressing and wrapped. Wound was infiltrated 0.5% Marcaine at completion. Sponge, needle, and instrument counts reported correct. Patient tolerated the procedure well and emerged from anesthesia stable condition. EBL minimal. Extremity was neurovascularly intact at completion.
[2023-11-02] MEDS: Acetaminophen 325 MG TABLET 650 MG PO (12:11)
== END 2023-11-02 13:02 | disposition home or self-care (01) ==
PROVIDERS: PCP Internal Medicine; Visit Provider Surgery
PROC: (CPT 24105; principal; 2023-11-02 10:10)
DX: M71.321 Other bursal cyst, right elbow (principal); I10 Essential (primary) hypertension; G40.209 Localization-related (focal) (partial) symptomatic epilepsy and epileptic syndromes with complex partial seizures, not intractable, without status epilepticus; F03.90 Unspecified dementia, unspecified severity, without behavioral disturbance, psychotic disturbance, mood disturbance, and anxiety; I48.91 Unspecified atrial fibrillation; F10.10 Alcohol abuse, uncomplicated; Z66 Do not resuscitate; Z79.01 Long term (current) use of anticoagulants; Z79.899 Other long term (current) drug therapy; Z98.890 Other specified postprocedural states
CPT/HCPCS: 24105; 88304; J0690; J1100; J2405; J2704; J2795; J3010

== ENCOUNTER → 2023-11-02 08:21 | Outpatient (BNV) | payer MEDICARE, SELFPAY | PROVIDERS: PCP Internal Medicine; Visit Provider Surgery | DX: M71.321 Other bursal cyst, right elbow (principal) | CPT/HCPCS: 24105 ==

== ENCOUNTER 2023-11-13 10:25 | Outpatient (AMB) | payer MEDICARE, SELFPAY ==
--- NOTE | 2023-11-13 10:29 | MHC.OFFVIS ---
Intake Visit Reasons: S/P WLE Rt. elbow mass Intake Note: This patient presents for a post-op assessment status post wide excision right elbow mass. Pt c/o; reports no complaints. Surgery date:11/02/2023 [facility]er Required: No Accompanied by: Spouse Allergies No Known Allergies [No Known Allergies*] Allergy (Verified 11/13/23 10:34) Medication List - Last Reconciled 11/13/23 by Gallo Scanlon MD acetaminophen (Tylenol) 650 mg PO Q6H PRN amlodipine 10 mg (2 x 5 mg) PO DAILY 90 days apixaban (Eliquis) 5 mg PO BID 90 days atorvastatin 20 mg PO DAILY cyanocobalamin (vitamin B-12) 1,000 mcg PO DAILY hydrocodone-acetaminophen 5-325 mg 1 tab PO Q4-6H PRN levetiracetam 250 mg PO DIRECTED metoprolol succinate ER 50 mg PO DAILY HPI Comments Details: Patient with his presents for follow-up. He has history of dementia and has been very challenging regarding keeping a dressing on and picking at his incision. says there was some mild erythema and placed some bacitracin on this daily. Pathology was benign PENDING SALE TO [facility] Medical History Complex partial seizure Dementia Persistent atrial fibrillation Cardiomyopathy Essential hypertension Alcohol abuse Surgical History H/O excision of mass (~11/02/23) H/O colonoscopy Hx of cardiac catheterization History of tonsillectomy History of appendectomy Family History Father No problems noted. Mother No problems noted. Social History Are you a primary child day care provider to a significant other at home: No Do you presently have visiting nurse or other home services: No Alcohol intake: former Patient Tobacco Use Status: Never used Tobacco Advance Directives Date on File: 11/28/21 service: No Physical Exam Extrem Other: Incision clean dry and intact. Some mild erythema around the upper part of the incision but no obvious purulence. Assessment & Plan Assessment & Plan (1) Postop check: Code(s): Z09 - Encounter for follow-up examination after completed treatment for conditions other than malignant neoplasm Category: Surgical Plan Because of the incision being on the elbow and the patient is quite active, my recommendation is to keep the sutures in for a few more days and then we will remove them. Patient also be given a script for Keflex and continue bacitracin to the incision. Patient will see me as directed or p.r.n.. This was reviewed with the . All questions answered. She should do her best to keep a dressing on this so he does not pick at it. Medications: New cephalexin 500 mg PO TID 30 caps 0RF Coding Level of Care Code Global (58778) Diagnoses Postop check Z09
== END 2023-11-13 10:53 | disposition home or self-care (01) ==
PROVIDERS: PCP Internal Medicine; Visit Provider Surgery
DX: Z09 Encounter for follow-up examination after completed treatment for conditions other than malignant neoplasm (principal)
CPT/HCPCS: 99024

== ENCOUNTER → 2023-11-13 10:25 | Outpatient (BNVA) | payer MEDICARE, SELFPAY | PROVIDERS: PCP Internal Medicine; Visit Provider Surgery | DX: Z09 Encounter for follow-up examination after completed treatment for conditions other than malignant neoplasm (principal); R22.31 Localized swelling, mass and lump, right upper limb | CPT/HCPCS: 99212 ==

== ENCOUNTER 2023-11-19 15:04 | Outpatient (AMB) | payer MEDICARE, SELFPAY ==
--- NOTE | 2023-11-19 15:06 | A.OFFVIS_ITS ---
Intake Visit Reasons: SUTURE REMOVAL Intake Note: Patient is seen in office for suture removal, post wide excision right elbow mass. Pt c/o: one wk f/u Photo Journalist Required: No Accompanied by: Self / Same As Patient Allergies No Known Allergies [No Known Allergies*] Allergy (Verified 11/19/23 15:06) HPI Comments Details: Patient presents with his for follow-up. Incision all things considered is doing well according to the . Patient has dementia and has been picking at it and trying to remove his sutures himself. PFSH Medical History Complex partial seizure Dementia Persistent atrial fibrillation Cardiomyopathy Essential hypertension Alcohol abuse Surgical History H/O excision of mass (~11/02/23) H/O colonoscopy Hx of cardiac catheterization History of tonsillectomy History of appendectomy Family History Father No problems noted. Mother No problems noted. Social History Are you a primary overnight caregiver to a significant other at home: No Do you presently have visiting nurse or other home services: No Alcohol intake: former Patient Tobacco Use Status: Never used Tobacco Advance Directives Date on File: 11/28/21 service: No Physical Exam Extrem Other: Incision clean dry and intact. Erythema for the last week has resolved. Sutures uneventfully removed. Dressing and wrap were reapplied to protect the incision from the patient. Assessment & Plan Assessment & Plan (1) Postop check: Code(s): Z09 - Encounter for follow-up examination after completed treatment for conditions other than malignant neoplasm Category: Surgical Plan They have been given local instructions including keeping the wound wrapped as much as possible to keep the patient were picking at it and will otherwise follow-up p.r.n.. All questions answered Coding Level of Care Code Global (14642) Diagnoses Postop check Z09
== END 2023-11-19 15:07 | disposition home or self-care (01) ==
PROVIDERS: PCP Internal Medicine; Visit Provider Surgery
DX: Z09 Encounter for follow-up examination after completed treatment for conditions other than malignant neoplasm (principal)
CPT/HCPCS: 99024

== ENCOUNTER → 2023-11-19 15:04 | Outpatient (BNVA) | payer MEDICARE, SELFPAY | PROVIDERS: PCP Internal Medicine; Visit Provider Surgery | DX: Z48.02 Encounter for removal of sutures (principal); Z87.2 Personal history of diseases of the skin and subcutaneous tissue | CPT/HCPCS: 99212 ==

== ENCOUNTER 2023-11-27 14:40 | Inpatient (IN) | payer MEDICARE, SELFPAY ==
--- NOTE | ~2023-11-27 | XR_ITS ---
EXAMINATION: XR FOOT, LEFT CLINICAL INFORMATION: Pain following trauma COMPARISON: None available. TECHNIQUE: AP, lateral, and oblique views of the left foot. FINDINGS: There is mildly displaced and impacted fracture of the distal metadiaphysis of 6 metatarsal bone on the left associated with soft tissue swelling. XR/XR foot LT min 3V IMPRESSION: Fracture of the fifth metatarsal bone
--- NOTE | ~2023-11-27 | CT_ITS ---
EXAMINATION: CT HEAD WITHOUT CONTRAST CLINICAL INFORMATION: Left-sided weakness. Gait instability. COMPARISON: CT head from 08/14/2022. TECHNIQUE: Contiguous axial imaging was performed from the skull base to vertex without intravenous administration of contrast. This CT examination was performed using dose optimization techniques as appropriate, variously including the following: *Automated exposure control. *Adjustment of mA and/or kV according to patient size (this includes techniques or standardized protocols for targeted exams where dose is matched to indication/reason for exam; i.e. extremities or head). *Use of iterative reconstruction technique. DLP: 600 mGy-cm FINDINGS: There is no evidence of acute intracranial hemorrhage or edematous territorial infarction. Chronic lacunar infarct of the right thalamus. No new loss of do-white matter differentiation. Scattered and partially confluent hypoattenuation in the periventricular and deep white matter are consistent with moderate microangiopathy. Proportional prominence of the ventricles and sulcal spaces without evidence of obstructive hydrocephalus. No abnormal mass effect or midline shift. No extra-axial fluid collections. Calcific atherosclerotic disease of the intracranial internal carotid arteries. No hyperdense vessel sign. No acute soft tissue or osseous abnormalities. Mild mucosal thickening of the paranasal sinuses. The mastoid air cells and middle ear cavities are clear. CT/CT head for stroke IMPRESSION: 1. No evidence of acute intracranial hemorrhage or edematous territorial infarction. 2. Moderate underlying microangiopathy and generalized cerebral volume loss. Chronic lacunar infarct of the right thalamus.
--- NOTE | ~2023-11-27 | CT_ITS ---
EXAMINATION: CT ANGIOGRAM HEAD CT ANGIOGRAM NECK CLINICAL INFORMATION: Left-sided weakness. COMPARISON: CT head from 11/27/2023. TECHNIQUE: Initial noncontrast advertiser imaging of the head and neck was performed. Comparison is made with noncontrast head CT from earlier today. Test bolus sequences followed by intravenous administration 70 mL of Omnipaque 350. Helical imaging was performed in the axial plane from the aortic arch to the skull vertex. Delayed postcontrast imaging of the head was also performed. The data was processed at the veterinary technologist's workstation for generation of MIP sequences. Angled MIPs and volume rendered reformatted images were also generated at an offline 3D workstation. Stenoses are assessed in accordance with NASCET criteria unless otherwise indicated. This CT examination was performed using dose optimization techniques as appropriate, variously including the following: *Automated exposure control. *Adjustment of mA and/or kV according to patient size (this includes techniques or standardized protocols for targeted exams where dose is matched to indication/reason for exam; i.e. extremities or head). *Use of iterative reconstruction technique. DLP: 1420 mGy-cm FINDINGS: CT Head: There is no evidence of acute intracranial hemorrhage or edematous territorial infarction. Chronic lacunar infarct of the right thalamus. There is a small region of encephalomalacia in the right occipital lobe. No additional loss of do-white matter differentiation. Scattered and partially confluent hypoattenuation in the periventricular and deep white matter are consistent with moderate microangiopathy. Proportional prominence of the ventricles and sulcal spaces without evidence of obstructive hydrocephalus. No abnormal mass effect or midline shift. No extra-axial fluid collections. Calcific atherosclerotic disease of the intracranial internal carotid arteries. No hyperdense vessel sign. No abnormal intracranial enhancement. No acute soft tissue or osseous abnormalities. Mild mucosal thickening of the paranasal sinuses. The mastoid air cells and middle ear cavities are clear. The patient is edentulous. CT Neck: The thyroid gland and remaining cervical soft tissues are within normal limits. Straightening of the normal cervical lordosis. Advanced degenerative disc disease from C5-C7. Moderate degenerative disc disease at all additional levels. Facet and uncovertebral joint arthropathy leads to osseous encroachment on the neural foramina from C3-C7. CT Upper Chest: The visualized lung apices and upper mediastinum are within normal limits. Neck CTA: Aortic Arch: Normal contour and caliber with mild calcific atherosclerotic disease. Classic 3 vessel branching pattern of the aortic arch. Great Vessel Origins: No significant stenosis of the branch origins. Right Common Carotid Artery: No focal stenosis or occlusion. Cervical Right Internal Carotid Artery: Calcific atherosclerotic disease of the carotid bulb and proximal internal carotid artery causing less than 50% stenosis. Left Common Carotid Artery: No focal stenosis or occlusion. Cervical Left Internal Carotid Artery: Calcific atherosclerotic disease of the carotid bulb and proximal internal carotid artery causing less than 50% stenosis. Cervical Right Vertebral Artery: Atherosclerotic disease causes moderate stenosis of the origin. No additional focal stenosis or occlusion. Cervical Left Vertebral Artery: Mildly dominant. No focal stenosis or occlusion. Brain CTA: Intracranial Internal Carotid Arteries: Calcific atherosclerotic disease of the intracranial internal carotid arteries without occlusion or flow-limiting stenosis. Right Anterior Cerebral Artery: Normal A1 segment. Normal opacification of the distal [place] segments. Left Anterior Cerebral Artery: The A1 segment is diminutive. Normal opacification of the distal [place] segments. Anterior Communicating Artery: Normal. Right Middle Cerebral Artery: Normal M1 segment of the MCA without focal stenosis or occlusion. Normal arborization of the distal segments. Left Middle Cerebral Artery: Normal M1 segment of the MCA without focal stenosis or occlusion. Normal arborization of the distal segments. Right Vertebral Artery: Normal V4 segment. Normal opacification of the proximal segments of the posterior inferior cerebellar artery. Left Vertebral Artery: Normal V4 segment. Normal opacification of the proximal segments of the posterior inferior cerebellar artery. Basilar Artery: Normal without focal stenosis or occlusion. Normal appearance of the proximal superior cerebellar arteries. Right Posterior Cerebral Artery: Normal P1 segment. Age-indeterminate occlusion of the P2 and distal PAIN MANAGEMENT SPECIALIST segments. Left Posterior Cerebral Artery: Normal P1 segment. Normal opacification of the distal PAIN MANAGEMENT SPECIALIST segments. Normal opacification of the superior sagittal, straight, transverse, and sigmoid sinuses. CT/CT angio head neck stroke IMPRESSION: 1. No evidence of acute intracranial hemorrhage or edematous territorial infarction. 2. Small region of encephalomalacia in the right occipital lobe. Chronic lacunar infarct of the right thalamus. Moderate underlying microangiopathy and generalized cerebral volume loss. 3. Age-indeterminate occlusion of the P2 and distal segments of the right PAIN MANAGEMENT SPECIALIST. 4. CTA of the head and neck without additional proximal occlusion. This critical result was discussed with JAIMIE Castillo at 17:00 on 11/27/2023 and it was ascertained that the content and urgency of the report was understood at the time of direct communication.
--- NOTE | ~2023-11-27 | MR_ITS ---
EXAMINATION: MR BRAIN WITHOUT CONTRAST CLINICAL INFORMATION: Ataxia, left-sided weakness, concern for stroke COMPARISON: MRI brain 08/18/2008 and CTA 11/27/2023 TECHNIQUE: MRI of the brain was obtained using routine sequences without contrast. FINDINGS: Multiple acute infarcts in the right OFFICE ADMINISTRATION INSTRUCTOR territory involving the right ventral thalamus extending into the subthalamic region, right splenium of the corpus callosum/medial periatrial white matter, and several within the right occipital lobe. There is no significant mass effect or hemorrhagic transformation. Loss of the normal right OFFICE ADMINISTRATION INSTRUCTOR flow void corresponding to known occlusion on CTA (image 12, series 12). A punctate focus of susceptibility artifact in the right occipital lobe adjacent to the region of infarct is favored to reflect a chronic microhemorrhage at this location. No extra-axial fluid collection. Since 08/18/2008, progressed moderate global cerebral volume loss. There has also been progression of patchy T2 FLAIR hyperintense foci in the subcortical and periventricular white matter and brainstem, nonspecific but presumably moderate chronic microangiopathy. No mass lesion, mass effect, or herniation pattern. Normal dural venous sinus flow voids. Normal appearance of the midline structures. The orbits are grossly unremarkable. Moderate mucosal disease in the left anterior ethmoid air cells. Trace right mastoid effusion. Normal marrow signal. Incompletely imaged cervical spondylosis, including severe hypertrophic left C3-C4 facet arthropathy. MR/MR head/brain wo con IMPRESSION: 1. Multiple acute infarcts in the right OFFICE ADMINISTRATION INSTRUCTOR territory involving the right ventral thalamus extending into the subthalamic region, right splenium of the corpus callosum/medial periatrial white matter, and several within the right occipital lobe. There is no significant mass effect or hemorrhagic transformation. Loss of the normal right OFFICE ADMINISTRATION INSTRUCTOR flow void corresponding to known occlusion on CTA (image 12, series 12). 2. Since 08/18/2008, progressed moderate global cerebral volume loss and white matter signal changes presumably reflecting moderate chronic microangiopathy.
--- NOTE | ~2023-11-27 | XR_ITS ---
EXAMINATION: XR CHEST, PA CLINICAL INFORMATION: Question implants. COMPARISON: Chest radiograph dated 11/22/2021. TECHNIQUE: 2 PA views of the chest were obtained. FINDINGS: The heart, great vessels, pulmonary vasculature and mediastinum are normal. The lungs show no focal infiltrate, effusion or pneumothorax. There is no acute osseous abnormality. There is a moderate thoracolumbar dextroscoliosis. No foreign body is seen. XR/XR chest 1V IMPRESSION: No active cardiopulmonary disease. No foreign body is seen.
--- NOTE | ~2023-11-27 | XR_ITS ---
EXAMINATION: XR ABDOMEN KUB CLINICAL INDICATION: Question implant. COMPARISON: None available. TECHNIQUE: AP view of the abdomen. FINDINGS: The bowel gas pattern is normal with no evidence of ileus or obstruction. Contrast material overlies the renal collecting systems bilaterally, likely due to renal excretion of intravenous contrast. Contrast is present within the bladder. No definite pathologic calculi. Mild degenerative spondylosis in the lumbar spine. Bones are osteopenic. No acute osseous findings. EKG leads are noted. No unexpected telephone bodies are identified. XR/XR abdomen 1V IMPRESSION: No unexpected metallic foreign bodies are identified in the abdomen. Nondilated bowel gas pattern.
--- NOTE | 2023-11-27 14:48 | ED_ITS ---
HPI - Neuro Symptoms/Deficit General Chief Complaint: Stroke Stated Complaint: left side weakness Time Seen by Provider: 11/27/23 15:58 Source: patient Limitations: other (dementia) History of Present Illness HPI Narrative: This is 78 years old male presented to the emergency department with a chief complaint of left-sided weakness unsteady gait since last night. History is limited because of dementia per since yesterday he lost his coordination, his gait is unsteady. Patient as history of atrial fibrillation he is anticoagulated Onset (ago): day(s) (1) Timing confirmed by: spouse History of same: No Severity: moderate Relieving factors: none Exacerbating factors: none Context: gradual onset Associated symptoms: denies other symptoms Related Data Home Medications ?Medication ?Instructions ?Recorded ?Confirmed acetaminophen 325 mg tablet 650 mg PO Q6H PRN Headache 11/23/21 11/19/23 (Tylenol) cyanocobalamin (vitamin B-12) 1,000 mcg PO DAILY 11/23/21 11/19/23 1,000 mcg tablet metoprolol succinate 50 mg 50 mg PO DAILY 01/10/22 11/19/23 tablet,extended release 24 hr atorvastatin 20 mg tablet 20 mg PO DAILY 09/20/22 11/19/23 levetiracetam 500 mg tablet 500 mg PO BID 11/27/23 Previous Rx's ?Medication ?Instructions ?Recorded amlodipine 5 mg tablet 10 mg (2 x 5 mg) PO DAILY 90 days 07/11/22 #180 tabs apixaban 5 mg tablet (Eliquis) 5 mg PO BID 90 days #180 tabs 09/17/23 hydrocodone 5 mg-acetaminophen 325 1 tab PO Q4-6H PRN pain #30 tabs 11/02/23 mg tablet cephalexin 500 mg capsule 500 mg PO TID #30 caps 11/13/23 Allergies Allergy/AdvReac Type Severity Reaction Status Date / Time No Known Allergies Allergy Verified 11/27/23 14:54 [No Known Allergies*] Review of Systems 2 Constitutional: Constitutional: Reports as per HPI and Reports no additional constitutional complaints ENT: Reports system reviewed and no additional complaints, except as documented Neurologic: Comments: left side weakness PMFSH Past Medical History Attestation statement: The following information was validated with the patient. Medical History Complex partial seizure Dementia Persistent atrial fibrillation Cardiomyopathy Essential hypertension Alcohol abuse Surgical History H/O excision of mass (~11/02/23) H/O colonoscopy Hx of cardiac catheterization History of tonsillectomy History of appendectomy Family History Family History Father No problems noted. Mother No problems noted. Social History Social History Are you a primary health care analyst to a significant other at home: No Do you presently have visiting nurse or other home services: No Alcohol intake: former Patient Tobacco Use Status: Never used Tobacco Smoked in Last 30 Days: No Use of substances other than those prescribed or required for medical reasons: No Advance Directives: Yes Advance Directives on File: Yes Advance Directives Date on File: 11/28/21 Do you have a plan to hurt others: No Plan service: No Physical Exam 2 Vital Signs: Vital Signs: Last Vital Signs Temp 98.1 F 11/27/23 18:34 Pulse 67 11/27/23 18:34 Resp 17 11/27/23 18:34 BP 134/94 H 11/27/23 18:34 Pulse Ox 95 11/27/23 18:34 O2 Del Method Room Air 11/27/23 18:34 BMI result Body Mass Index 22.4 Const: General: cooperative Nutritional Appearance: well nourished O rientation/consciousness: patient oriented x3 Limitations: no limitations HEENT: Head: Yes normal to inspection Ears: hearing grossly normal bilaterally General nose exam: Normal external nose present Face and sinus: Yes normal facial exam Mouth: Normal oral and palatal mucosa present Neck: Neck: Yes normal visual inspection Chest: Chest palpation & inspection: normal inspection of the chest Resp: Effort & Inspection: normal respiratory effort Cardio: Jugular venous distension: no JVD Rate: regular rate Rhythm: r egular rhythm GI: Inspection: Yes normal to inspection Palpation (GI): Soft to palpation Skin: General skin exam: no rashes or lesions noted Neuro: Other: On examination he has no deficits in strength the [id number] is off in the left side , no facial droop, stroke scale 1 General: patient oriented x3 Course Course Course Narrative: This is a Rapid Medical Examination (RME) performed by Richard Sanabria PA-C in triage. Full HPI, ROS, assessment and treatment plan per primary provider in the Main ED. 78-year-old male with a history of AFib on Eliquis, dementia, HTN, seizures who presents to the ER for evaluation of left-sided weakness. Patient has had increase in sundowning at night. he then had a fall on Sunday, slipped and fell while wearing his socks, hitting his elbows, son caught him. no head strike. [place] the [place]. reports LUE weakness last night. neuro intact in triage. CN II-XII intact. gait not tested in triage. Plan: CT head, labs Medications Administered Discontinued Medications Generic Name Dose Route Start Last Admin Trade Name Freq PRN Reason Stop Dose Admin Iohexol 100 ml 11/27/23 16:33 11/27/23 16:33 Iohexol 350 Mg/Ml 100 Ml Infus..Btl IV 11/27/23 16:34 70 ml ONCE ONE Administration Medical Decision Making Medical Decision Making [facility] Narrative: Patient presented with left-sided weakness incoordination will obtain imaging Differential Diagnosis Differential Diagnoses: The differential diagnosis associated with the presentation includes CVA/TIA/head bleed Consult Healthcare Provider Management of the patient was discussed with: Hospitalist Lab Data [facility] Lab Attestation statement: I reviewed the patient's lab results. 11/27/23 15:07 11/27/23 15:07 Labs: Lab Results 11/27/23 11/27/23 11/27/23 Range/Units 15:07 15:36 15:57 WBC 9.6 (4.8-10.8) X10*3/uL RBC 5.08 (4.60-5.80) X10*6/uL Hgb 16.3 (14.0-18.0) g/dl Hct 47.0 (42.0-52.0) % MCV 92.5 (80.0-98.0) fL MCH 32.1 (27.0-33.0) pg MCHC 34.7 (31.0-36.0) g/dl RDW 12.2 (11.0-16.0) % Plt Count 195 (160-400) X10*3/uL MPV 9.5 (9.4-12.4) fL Immature Gran % (Auto) 0.4 (0.0-0.4) % Neut % (Auto) 66.6 (45-73) % Lymph % (Auto) 20.0 (20-40) % [place] % (Auto) 9.9 (2-11) % Eos % (Auto) 2.4 (0-4) % Baso % (Auto) 0.7 (0-2) % Lymph # (Auto) 1.9 (1.2-4.9) X10*3/uL [place] # (Auto) 1.0 (0.1-1.2) X10*3/uL Eos # (Auto) 0.2 (0.0-0.4) X10*3/uL Baso # (Auto) 0.1 (0.0-0.2) X10*3/uL Abs Immat Gran (auto) 0.04 H (0.00-0.03) X10*3/uL Absolute Neuts (auto) 6.4 (2.0-8.3) x10*3/uL Absolute Nucleated RBC 0.000 (0.0-0.012) X10*3/uL Nucleated RBC % (auto) 0.0 (0.0-0.2) /100WBC PT 21.6 H (11.1-13.3) SEC INR 1.8 H (0.9-1.1) APTT 35.1 (26.0-36.8) SEC Sodium 139 (135-145) mmol/L Potassium 3.7 (3.3-5.1) mmol/L Chloride 104 (96-108) mmol/L Carbon Dioxide 24 (22-29) mmol/L Anion Gap 15 (12-20) BUN 7 L (9-16) mg/dL Creatinine 1.09 (0.5-1.4) mg/dL Estim Creat Clear Calc 52.7 Estimated GFR > 60 POC Glucose 118 H (60-115) mg/dL Random Glucose 117 H (60-115) mg/dL Calcium 9.6 (8.4-10.2) mg/dL Magnesium 1.9 (1.6-2.6) mg/dL Total Bilirubin 2.0 H (0.0-1.0) mg/dL Direct Bilirubin 0.5 (0.0-0.5) mg/dL AST 20 (5-37) U/L ALT 10 (0-40) U/L Alkaline Phosphatase 116 (39-117) U/L Total Protein 6.4 L (6.5-8.0) g/dL Albumin 4.1 (3.5-5.0) g/dL Urine Color Yellow Urine Appearance Clear Urine pH 6.0 (5.0-9.0) Ur Specific [place] 1.015 (1.005-1.025) Urine Protein Negative (Neg-Trace) mg/dL Urine Glucose (UA) Negative (Negative) mg/dL Urine Ketones Negative (Negative) mg/dL Urine Blood Negative (Negative) Urine Nitrite Negative (Negative) Ur Leukocyte Esterase Negative (Negative) COVID-19 (GOPAL) Negative (Negative) COVID-19 Clin Com See Note Independent Interpretation I performed an independent interpretation of an: EKG and CT Scan Independent Historian Clinical information obtained from an independent historian. History obtained from or confirmed by: Spouse at bed side External Record Review External record reviewed: Inpatient record Chronic Conditions Patient?s care impacted by: Other (dementia) Discharge Plan Discharge Clinical Impression: Ataxia Patient Disposition: Admitted As Inpatient
[2023-11-27 14:49] VITALS: BP 150/96; PULSE 80; RESP 19; TEMP 36.6; O2SAT 98; BMI 22.4
--- NOTE | 2023-11-27 14:53 | ECG_ITS ---
Test Reason : stroke Blood Pressure : / mmHG Vent. Rate : 078 BPM Atrial Rate : 000 BPM P-R Int : 000 ms QRS Dur : 090 ms QT Int : 370 ms P-R-T Axes : 000 -47 035 degrees QTc Int : 421 ms Atrial fibrillation Left axis deviation Septal infarct (cited on or before 28-JUL-2008) Abnormal ECG When compared with ECG of 21-APR-2022 20:29, No significant change was found Referred By: May Sanabria Electronically Signed By:NEIDA JAIMES
[2023-11-27 15:11] LABS: Basophils Absolute Auto 0.1 X10*3/uL (0.0-0.2); Basophils Percent Auto 0.7 % (0-2); Eosinophils Absolute Auto 0.2 X10*3/uL (0.0-0.4); Eosinophils Percent Auto 2.4 % (0-4); Hemoglobin 16.3 g/dl (14.0-18.0); Imm Gran Abs Auto 0.04 X10*3/uL (0.00-0.03); Imm Gran Pct Auto 0.4 % (0.0-0.4); Lymphocytes Absolute Auto 1.9 X10*3/uL (1.2-4.9); MANUAL DIFF FLAG NO; Mean Corpuscular HGB Conc 34.7 g/dl (31.0-36.0); Mean Corpuscular Hemoglobin 32.1 pg (27.0-33.0); Mean Corpuscular Volume 92.5 fL (80.0-98.0); Mean Platelet Volume 9.5 fL (9.4-12.4); Monocytes Percent Auto 9.9 % (2-11); Neutrophils Absolute Auto 6.4 x10*3/uL (2.0-8.3); Neutrophils Percent Auto 66.6 % (45-73); Platelet Count 195 X10*3/uL (160-400); Red Blood Count 5.08 X10*6/uL (4.60-5.80); Red Cell Distribution Width 12.2 % (11.0-16.0); White Blood Count 9.6 X10*3/uL (4.8-10.8)
[2023-11-27 15:17] LABS: INTERNATIONAL NORM RATIO 1.8 (0.9-1.1); Prothrombin Time 21.6 SEC (11.1-13.3)
[2023-11-27 15:19] LABS: Partial Thromboplastin Time 35.1 SEC (26.0-36.8)
[2023-11-27 15:24] LABS: COVID-19 Test Negative (Negative); IDNOW Serial# 152EDE1D
[2023-11-27 15:28] LABS: Alanine Aminotransferase 10 U/L (0-40); Albumin Level 4.1 g/dL (3.5-5.0); Alkaline Phosphatase 116 U/L (39-117); Anion Gap 15 (12-20); Aspartate Amino Transferase 20 U/L (5-37); Bilirubin Direct 0.5 mg/dL (0.0-0.5); Blood Urea Nitrogen 7 mg/dL (9-16); Calcium 9.6 mg/dL (8.4-10.2); Carbon Dioxide 24 mmol/L (22-29); Chloride 104 mmol/L (96-108); Creatinine Clr Calc Pharmacy 52.7; Estimated Glomerular Filt Rate > 60; Glucose Random 117 mg/dL (60-115); Magnesium 1.9 mg/dL (1.6-2.6); Potassium 3.7 mmol/L (3.3-5.1); Sodium 139 mmol/L (135-145); Total Protein 6.4 g/dL (6.5-8.0)
--- NOTE | 2023-11-27 15:40 | PC.NURSE ---
pt presents to the ED from triage w/ increase in falls for the past few days w/ associated unsteady gait/left sided weakness x yesterday. pt reports feeling numbness/tingling in LUE w/ associated dizziness but has since resolved. +thinners (eloquis) as pt has a hx of afib. during assessment, pt seems to be mostly oriented but just unsure about the year - states that the year is 1999. pt is pleasantly confused. hx of dementia. otherwise pt able to answer questions/follow commands appropriately. face symmetrical. no slur in speech. strength equal bilaterally. pt passed nursing swallow evaluation w/o difficulty. 20gIV placed in the right AC - wrapped w/ curex gauze for safety precautions. no sob/wob noted. respirations even/unlabored. family bedside for support. plan of care ongoing. call james placed within reach.
[2023-11-27 15:44] LABS: Glucose, Whole Blood 118 mg/dL (60-115)
--- NOTE | 2023-11-27 16:00 | PC.NURSE ---
urine obtained/sent to lab.
[2023-11-27 16:04] LABS: Appearance Urine Clear; Color Urine Yellow; Glucose Urine UA Negative (Negative); Leukocyte Esterase Urine Negative (Negative); Nitrite Urine Negative (Negative); Specific Gravity - Urine 1.015 (1.005-1.025); Urine Blood Negative (Negative); Urine Ketones Negative (Negative); Urine Protein Negative (Neg-Trace)
--- NOTE | 2023-11-27 16:28 | PC.NURSE ---
stroke protocol initiated by Dr. Styles at this time. pt currently being transported to CT to have scan completed.
[2023-11-27] MEDS: iohexoL 350 MG/ML 100 ML INFUS..BTL IV (16:33)
[2023-11-27 18:34] VITALS: BP 134/94; PULSE 67; RESP 17; TEMP 36.7; O2SAT 95
--- NOTE | 2023-11-27 18:39 | MHC.EDTECH ---
EKG was done at 1454 I amended it but it stills shows like its not done
--- NOTE | 2023-11-27 19:32 | PC.NURSE ---
this rn assumed care of pt, pt resting instretcher no acute distress noted. family at bedside. pt reports pt gets confused at night and will rip at medical equipment and reports a camera would be beneficial. this rn noted.
--- NOTE | 2023-11-27 20:07 | PC.NURSE ---
pt family noted to leave bedside, pt noted to be pulling at iv gauze and tele leads. camera placed for pt safety. tracy weinstein at bedside.
--- NOTE | 2023-11-27 20:21 | P.HPHOSP_ITS ---
History of Present Illness Date of Service: 11/27/23 Attending physician on admission: Ariel Duran Chief Complaint: left sided weakness, ataxia 78-year-old male with history of complex partial seizures on Keppra, persistent atrial fibrillation anticoagulated with Eliquis, unspecified dementia, hypertension, cardiomyopathy, alcohol use disorder presented to the ED earlier today from home accompanied by his due to multiple falls over the last week but worsening unsteady gait with left-sided weakness noted last night. Last known well time was 19:30 last night. Patient is a very poor historian at baseline secondary to his underlying dementia and history obtained from and ED provider. The patient is able to tell me his name, where he is, and the year but is unable to tell me why he is in the hospital. Once prompted, he does recall having falls and reports pain in the right elbow but has full range of motion of the right upper extremity. Upon entry into exam room, patient is attempting to room move his IV and has removed multiple telemetry leads. Since arrival, vital signs have been stable, mildly hypertensive to 150/96. Hematology studies unremarkable. Renal function baseline, electrolyte levels normal. Glucose 118. Total bilirubin 2.0, consistent with baseline, LFTs otherwise within normal limits. Urinalysis unremarkable. Negative for COVID- 19. Head CT negative for acute intracranial abnormality which shows moderate underlying microangiopathy and generalized cerebral volume loss as well as a chronic lacunar infarct of the right thalamus. CT of the head/neck again shows chronic lacunar infarct has noted as well as small region of encephalomalacia in the right occipital lobe as well as an age-indeterminate occlusion of the P2 and distal segments of the right GAME PRODUCER. Otherwise, no evidence of large vessel occlusion or other hemodynamically significant stenosis. EKG shows atrial fibrillation, rate [address]/T-wave abnormalities. Review of Systems 2 Review of Systems: Yes Unobtainable due to mental status [facility] Medical History Complex partial seizure Dementia Persistent atrial fibrillation Cardiomyopathy Essential hypertension Alcohol abuse Family History Father No problems noted. Mother No problems noted. Surgical History H/O excision of mass (~11/02/23) H/O colonoscopy Hx of cardiac catheterization History of tonsillectomy History of appendectomy Social History Are you a primary managed care specialist to a significant other at home: No Do you presently have visiting nurse or other home services: No Alcohol intake: former Patient Tobacco Use Status: Never used Tobacco Smoked in Last 30 Days: No Use of substances other than those prescribed or required for medical reasons: No Advance Directives: Yes Advance Directives on File: Yes Advance Directives Date on File: 11/28/21 Do you have a plan to hurt others: No Plan service: No Meds Allergies Allergy/AdvReac Type Severity Reaction Status Date / Time No Known Allergies Allergy Verified 11/27/23 14:54 [No Known Allergies*] Home Medications ?Medication ?Instructions ?Recorded ?Confirmed ?Last Taken ?Type acetaminophen 325 mg tablet 650 mg PO Q6H PRN Headache 11/23/21 11/19/23 Unknown History (Tylenol) cyanocobalamin (vitamin B-12) 1,000 mcg PO DAILY 11/23/21 11/19/23 11/22/21 History 1,000 mcg tablet metoprolol succinate 50 mg 50 mg PO DAILY 01/10/22 11/19/23 11/02/23 History tablet,extended release 24 hr atorvastatin 20 mg tablet 20 mg PO DAILY 09/20/22 11/19/23 Unknown History levetiracetam 500 mg tablet 500 mg PO BID 11/27/23 Unknown History Physical Exam 2 Vital Signs and Narrative: Vital Signs: Last Vital Signs Temp 98.1 F 11/27/23 18:34 Pulse 67 11/27/23 18:34 Resp 17 11/27/23 18:34 BP 134/94 H 11/27/23 18:34 Pulse Ox 95 11/27/23 18:34 O2 Del Method Room Air 11/27/23 18:34 BMI result Body Mass Index 22.4 Constitutional - Awake and Alert, No apparent distress Eyes - PERRLA, EOMI, subconjunctival hemorrhage Cardiovascular - S1S2, irregularly irregular, normal rate, No edema Respiratory - Normal lung expansion, Normal respiratory effort, No respiratory distress, CTA bilaterally Gastrointestinal - NT / ND; +BS; No rebound or guarding Extremities - no calf tenderness bilaterally, no swelling Skin - Warm/Dry Neurological - Alert & oriented x3, but unable to provide much other history. CN II-XII in tact, 5/5 strength BUE and BLE, poor coordination with b/l finger to nose testing, normal heel to mata testing, unsteady gait but negative romberg Psychological - Appropriate affect Results Labs 11/27/23 15:07 11/27/23 15:07 Labs: Laboratory Results - last 24 hr 11/27/23 11/27/23 11/27/23 15:07 15:36 15:57 MCV 92.5 MCH 32.1 MCHC 34.7 RDW 12.2 Plt Count 195 MPV 9.5 Immature Gran % (Auto) 0.4 Neut % (Auto) 66.6 Lymph % (Auto) 20.0 [place] % (Auto) 9.9 Eos % (Auto) 2.4 Baso % (Auto) 0.7 Lymph # (Auto) 1.9 [place] # (Auto) 1.0 Eos # (Auto) 0.2 Baso # (Auto) 0.1 Abs Immat Gran (auto) 0.04 H Absolute Neuts (auto) 6.4 Absolute Nucleated RBC 0.000 Nucleated RBC % (auto) 0.0 PT 21.6 H INR 1.8 H APTT 35.1 Anion Gap 15 Estim Creat Clear Calc 52.7 Estimated GFR > 60 POC Glucose 118 H Random Glucose 117 H Calcium 9.6 Magnesium 1.9 Total Bilirubin 2.0 H Direct Bilirubin 0.5 AST 20 ALT 10 Alkaline Phosphatase 116 Total Protein 6.4 L Albumin 4.1 Urine Color Yellow Urine Appearance Clear Urine pH 6.0 Ur Specific [place] 1.015 Urine Protein Negative Urine Glucose (UA) Negative Urine Ketones Negative Urine Blood Negative Urine Nitrite Negative Ur Leukocyte Esterase Negative COVID-19 (GOPAL) Negative COVID-19 Clin Com See Note Imaging Radiologist's Impressions: Impressions Head CT 11/27/23 16:34 IMPRESSION: 1. No evidence of acute intracranial hemorrhage or edematous territorial infarction. 2. Moderate underlying microangiopathy and generalized cerebral volume loss. Chronic lacunar infarct of the right thalamus. Head/Neck CTA 11/27/23 16:50 IMPRESSION: 1. No evidence of acute intracranial hemorrhage or edematous territorial infarction. 2. Small region of encephalomalacia in the right occipital lobe. Chronic lacunar infarct of the right thalamus. Moderate underlying microangiopathy and generalized cerebral volume loss. 3. Age-indeterminate occlusion of the P2 and distal segments of the right GAME PRODUCER. 4. CTA of the head and neck without additional proximal occlusion. This critical result was discussed with JAIMIE Castillo at 17:00 on 11/27/2023 and it was ascertained that the content and urgency of the report was understood at the time of direct communication. Assessment and Plan (1) TIA (transient ischemic attack): Status: Acute (2) Ataxia: Status: Acute Plan 78-year-old male with history of complex partial seizures on Keppra, persistent atrial fibrillation anticoagulated with Eliquis, unspecified dementia, hypertension, cardiomyopathy, alcohol use disorder to be observed for acute TIA #Acute TIA -head ct negative for acute intracranial abnormality. CTA head/neck negative for LVO -MRI brain ordered -passed bedside swallow eval, cardiac diet -given 81mg asa in ed, continue daily. continue eliquis -neuro checks, stroke edu -lipid panel pending, increase atorvastatin to 80mg daily -defer echo to neuro -neuro consult -monitor on tele -pt/ot eval #Persistent atrial fibrillation- rate controlled -continue eliquis, hold metoprolol in setting of tia #Complex partial seizure -continue keppra #HTN -hold metoprolol, amlodipine in setting of tia #Unspecified dementia -mentation baseline #Unspecified cardiomyopathy -hold bb as above #Alcohol use disorder -reports occassionally drinking a 6 pack but then states he did drink last night -monitor on ciwa, po thiamine and folic acid dvt prophylaxis- eliquis full code Quality Stroke Does the patient have a stroke diagnosis?: Yes Reason for No Anti-thrombotic by Day Two: Drug treatment not indicated VTE Prior VTE?: No VTE Risk Level:: Medical - moderate - high VTE Device Contraindication: Treatment Not Indicated VTE Drug Contraindication: N/A - Med Ordered
--- NOTE | 2023-11-27 20:55 | PC.NURSE ---
Addendum entered by Marleen Perez 11/27/23 21:19: per plan to do MRI in morning, pt taken to ct at this time. Original Note: mri at bedside, pt transported to MRI at this time.
[2023-11-27] MEDS: Aspirin Enteric Coated 81 MG TABLET.DR PO (21:24)
[2023-11-27] MEDS: Apixaban 5 MG TABLET PO (21:24)
[2023-11-27] MEDS: levETIRAcetam 500 MG TABLET PO (21:24)
--- NOTE | 2023-11-27 21:25 | PC.NURSE ---
pt noted to pass swallowing screen, pt medicated per jun, tolerated well with water.
[2023-11-27 21:30] LABS: Cholesterol 125 mg/dL (<200); HDL Cholesterol 42 mg/dL (>40); LDL Cholesterol Calculated 66 mg/dL (<100); Triglycerides 86 mg/dL (<150)
--- NOTE | 2023-11-27 22:14 | PC.NURSE ---
pt placed in hospital bed for safety at this time, pt noted to be confused states i am at the eye doctor , pt re directed into bed. camera in place, bed alarm on.
[2023-11-27] MEDS: LORazepam 2 MG/ML VIAL 0.5 MG IVPUSH (22:29)
--- NOTE | 2023-11-27 22:32 | PC.NURSE ---
pt continuing to attempt to get out of bed. aware, pt medicated per jun. pt covered in blankets for comfort.
[2023-11-28] VITALS: PULSE 86; RESP 20
[2023-11-28] MEDS: LORazepam 2 MG/ML VIAL 1 MG IVPUSH (00:23)
[2023-11-28] MEDS: levETIRAcetam in NaCl (iso-os) 500 MG/100 ML PIGGYBACK 400 MG IV (00:23)
--- NOTE | 2023-11-28 00:25 | PC.NURSE ---
pt continues to be confused, getting out of bed and pulling at IV. aware, pt medicated per jun. battery recharger cristi aware, sitter placed for safety at pt is re directable.
[2023-11-28] MEDS: 0.9 % Sodium Chloride Flush 3 ML SYRINGE IVFLUSH ×4 (00:31→22:45)
--- NOTE | 2023-11-28 01:07 | PC.NURSE ---
pt allowed to sleep, respirations even and unlabored.
[2023-11-28 04:29] VITALS: BP 105/81; PULSE 74; RESP 16; TEMP 36.4; O2SAT 96
[2023-11-28 06:04] LABS: MANUAL DIFF FLAG NO
[2023-11-28 06:09] LABS: Basophils Absolute Auto 0.1 X10*3/uL (0.0-0.2); Basophils Percent Auto 0.9 % (0-2); Eosinophils Absolute Auto 0.4 X10*3/uL (0.0-0.4); Eosinophils Percent Auto 4.3 % (0-4); Hematocrit 43.1 % (42.0-52.0); Hemoglobin 14.8 g/dl (14.0-18.0); Imm Gran Abs Auto 0.04 X10*3/uL (0.00-0.03); Imm Gran Pct Auto 0.5 % (0.0-0.4); Lymphocytes Absolute Auto 2.2 X10*3/uL (1.2-4.9); Lymphocytes Percent Auto 25.2 % (20-40); Mean Corpuscular HGB Conc 34.3 g/dl (31.0-36.0); Mean Corpuscular Hemoglobin 31.2 pg (27.0-33.0); Mean Corpuscular Volume 90.9 fL (80.0-98.0); Mean Platelet Volume 9.5 fL (9.4-12.4); Monocytes Percent Auto 11.9 % (2-11); Neutrophils Absolute Auto 4.9 x10*3/uL (2.0-8.3); Neutrophils Percent Auto 57.2 % (45-73); Platelet Count 179 X10*3/uL (160-400); Red Blood Count 4.74 X10*6/uL (4.60-5.80); Red Cell Distribution Width 12.1 % (11.0-16.0); White Blood Count 8.6 X10*3/uL (4.8-10.8)
[2023-11-28 06:21] LABS: Anion Gap 13 (12-20); Blood Urea Nitrogen 6 mg/dL (9-16); Calcium 8.9 mg/dL (8.4-10.2); Carbon Dioxide 26 mmol/L (22-29); Chloride 103 mmol/L (96-108); Creatinine Clr Calc Pharmacy 59.2; Estimated Glomerular Filt Rate > 60; Glucose Random 97 mg/dL (60-115); Potassium 3.1 mmol/L (3.3-5.1); Sodium 139 mmol/L (135-145)
[2023-11-28 08:22] VITALS: BP 160/100; PULSE 72; RESP 16; O2SAT 98
[2023-11-28] MEDS: levETIRAcetam 500 MG TABLET PO ×2 (08:23→22:43)
[2023-11-28] MEDS: Atorvastatin Calcium 80 MG TABLET PO (08:23)
[2023-11-28] MEDS: Folic Acid 1 MG TABLET PO (08:24)
[2023-11-28] MEDS: Apixaban 5 MG TABLET PO ×2 (08:24→22:43)
[2023-11-28] MEDS: Thiamine HCL 100 MG TABLET PO (08:24)
[2023-11-28] MEDS: Aspirin Enteric Coated 81 MG TABLET.DR PO (08:24)
--- NOTE | 2023-11-28 09:38 | MHC.CM.PN ---
Patient has Dementia; CM spoke with /HCP/Davina @ [phone] and addressed MEJÍA with her(original will be mailed to and a copy has been placed on the chart). Patient lives in a house with his and his Son is temporarily staying with them. 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 CM has initiated and will follow for dc planning.PCP is Dr. Kwame Diop.
--- NOTE | 2023-11-28 11:14 | P.PNIM_ITS ---
Subjective Subjective Date of Service: 11/28/23 Interval History: feels back to baseline Physical Exam 2 Vital Signs: Vital Signs: Last Vital Signs Temp 97.5 F 11/28/23 04:29 Pulse 72 11/28/23 08:22 Resp 16 11/28/23 08:22 BP 160/100 H 11/28/23 08:22 Pulse Ox 98 11/28/23 08:22 O2 Del Method Room Air 11/28/23 08:22 BMI result Body Mass Index 22.4 General: AO X 3, no acute distress Resp: CTA bilateral, no accessory muscles used CVS: S1,S2,RRR GI: soft, non tender, non distended Neuro: motor grossly intact, alert Objective Data Active Medications Acetaminophen (Acetaminophen 325 Mg Tablet) 650 mg PO Q6H PRN PRN Reason: Pain, Mild (Pain Scale 1-3), fever or headache Apixaban (Apixaban 5 Mg Tablet) 5 mg PO BID [facility] Last Admin: 11/28/23 08:24 Dose: 5 mg Documented By: JOSE Aspirin (Aspirin Enteric Coated 81 Mg Tablet.Dr) 81 mg PO DAILY [facility] Last Admin: 11/28/23 08:24 Dose: 81 mg Documented By: JOSE Atorvastatin Calcium (Atorvastatin Calcium 80 Mg Tablet) 80 mg PO DAILY [facility] Last Admin: 11/28/23 08:23 Dose: 80 mg Documented By: JOSE Calcium Carbonate (Calcium Carbonate 750 Mg Tab.Chew) 750 mg PO Q4H PRN PRN Reason: Heartburn Folic Acid (Folic Acid 1 Mg Tablet) 1 mg PO DAILY [facility] Last Admin: 11/28/23 08:24 Dose: 1 mg Documented By: JOSE Levetiracetam (Levetiracetam 500 Mg Tablet) 500 mg PO BID [facility] Last Admin: 11/28/23 08:23 Dose: 500 mg Documented By: JOSE Magnesium Hydroxide (Milk Of Magnesia 30 Ml Oral.Susp) 30 ml PO DAILY PRN PRN Reason: Constipation Melatonin (Melatonin 3 Mg Tablet) 6 mg PO BEDTIME PRN PRN Reason: Insomnia Sodium Chloride (0.9 % Sodium Chloride Flush 3 Ml Syringe) 3 ml IVFLUSH QSHIFT [facility] Last Admin: 11/28/23 08:24 Dose: 3 ml Documented By: JOSE Thiamine HCl (Thiamine Hcl 100 Mg Tablet) 100 mg PO DAILY [facility] Last Admin: 11/28/23 08:24 Dose: 100 mg Documented By: JOSE Labs 11/28/23 05:42 11/28/23 05:42 Labs: Laboratory Results - last 24 hr 11/27/23 11/27/23 11/27/23 15:07 15:36 15:57 MCV 92.5 MCH 32.1 MCHC 34.7 RDW 12.2 Plt Count 195 MPV 9.5 Immature Gran % (Auto) 0.4 Neut % (Auto) 66.6 Lymph % (Auto) 20.0 [place] % (Auto) 9.9 Eos % (Auto) 2.4 Baso % (Auto) 0.7 Lymph # (Auto) 1.9 [place] # (Auto) 1.0 Eos # (Auto) 0.2 Baso # (Auto) 0.1 Abs Immat Gran (auto) 0.04 H Absolute Neuts (auto) 6.4 Absolute Nucleated RBC 0.000 Nucleated RBC % (auto) 0.0 PT 21.6 H INR 1.8 H APTT 35.1 Anion Gap 15 Estim Creat Clear Calc 52.7 Estimated GFR > 60 POC Glucose 118 H Random Glucose 117 H Calcium 9.6 Magnesium 1.9 Total Bilirubin 2.0 H Direct Bilirubin 0.5 AST 20 ALT 10 Alkaline Phosphatase 116 Total Protein 6.4 L Albumin 4.1 Triglycerides 86 Cholesterol 125 LDL Cholesterol, Calc 66 HDL Cholesterol 42 Urine Color Yellow Urine Appearance Clear Urine pH 6.0 Ur Specific [place] 1.015 Urine Protein Negative Urine Glucose (UA) Negative Urine Ketones Negative Urine Blood Negative Urine Nitrite Negative Ur Leukocyte Esterase Negative COVID-19 (GOPAL) Negative COVID-19 Clin Com See Note 11/28/23 05:42 MCV 90.9 MCH 31.2 MCHC 34.3 RDW 12.1 Plt Count 179 MPV 9.5 Immature Gran % (Auto) 0.5 H Neut % (Auto) 57.2 Lymph % (Auto) 25.2 [place] % (Auto) 11.9 H Eos % (Auto) 4.3 H Baso % (Auto) 0.9 Lymph # (Auto) 2.2 [place] # (Auto) 1.0 Eos # (Auto) 0.4 Baso # (Auto) 0.1 Abs Immat Gran (auto) 0.04 H Absolute Neuts (auto) 4.9 Absolute Nucleated RBC 0.000 Nucleated RBC % (auto) 0.0 PT INR APTT Anion Gap 13 Estim Creat Clear Calc 59.2 Estimated GFR > 60 POC Glucose Random Glucose 97 Calcium 8.9 D Magnesium Total Bilirubin Direct Bilirubin AST ALT Alkaline Phosphatase Total Protein Albumin Triglycerides Cholesterol LDL Cholesterol, Calc HDL Cholesterol Urine Color Urine Appearance Urine pH Ur Specific [place] Urine Protein Urine Glucose (UA) Urine Ketones Urine Blood Urine Nitrite Ur Leukocyte Esterase COVID-19 (GOPAL) COVID-19 Clin Com Assessment and Plan (1) Ataxia: Status: Acute Plan 78M PMH complex partial seizures on Keppra, persistent atrial fibrillation anticoagulated with Eliquis, unspecified dementia, hypertension, cardiomyopathy, alcohol use disorder presented with left sided weakness, ataxia left sided weakness, ataxia mri, neuro eval, pt eliquis, asa, statin Persistent atrial fibrillation- rate controlled continue eliquis, hold metoprolol in setting of permissive htn Complex partial seizure continue keppra HTN hold metoprolol, amlodipine in setting for permissive htn Unspecified dementia mentation baseline Unspecified cardiomyopathy hold bb as above Alcohol use disorder monitor on ciwa, po thiamine and folic acid dvt prophylaxis- eliquis full code reason for continued hospitalization:stroke work up Quality Stroke Does the patient have a stroke diagnosis?: Yes Reason for No Anti-thrombotic by Day Two: Drug treatment not indicated VTE Prior VTE?: No VTE Risk Level:: Medical - moderate - high VTE Device Contraindication: Treatment Not Indicated VTE Drug Contraindication: N/A - Med Ordered
--- NOTE | 2023-11-28 11:49 | PHA.MEDREC ---
Addendum entered by Pascual Franklin RPh 11/28/23 12:00: [facility] rec was reviewed by [facility]. Original Note: Pharmacy Consult ? Medication Reconciliation Pharmacy has completed the medication reconciliation. Confirmed medications with [facility] pharmacy on [address] in [place]. I tried to talk to patient and he was not in the right state of mind. I then called the patient's Davina around [phone], she did not answer and I left a voicemail to call us. I still have not received a call so I called the [facility] and they were able to confirm the most recent medications and anything else not matching up. They did confirm he picked up his Eliquis 5mg tab BID earlier this month. They state he picked up his Cephalexin 500mg regimen 1 tab TID for 10 days on 11/13/2023.
[2023-11-28 12:00] VITALS: BP 116/87; PULSE 71; RESP 18; TEMP 36.5; O2SAT 95
[2023-11-28 16:00] VITALS: BP 102/60; PULSE 66; RESP 20; TEMP 36.6; O2SAT 99
--- NOTE | 2023-11-28 17:53 | P.CNNE_ITS ---
History of Present Illness Data of Consult Service Date: 11/28/23 Primary Care Provider: Kwame Diop MD [facility] Reason for consult: TIA This is a 78-year-old male with history of complex partial seizures on Keppra, persistent atrial fibrillation anticoagulated with Eliquis, unspecified dementia, hypertension, cardiomyopathy, alcohol use disorder presented to the ED earlier today from home accompanied by his due to multiple falls over the last week with worsening unsteady gait with left-sided weakness noted last night. Last known well time was 19:30 last night. Patient is a very poor historian at baseline secondary to his underlying dementia. Head CT negative for acute intracranial abnormality. It shows moderate underlying microangiopathy and generalized cerebral volume loss as well as a chronic lacunar infarct of the right thalamus and right occipital area. CTA shows an age-indeterminate occlusion of the P2 and distal segments of the right METROLOGY TECHNICIAN ( probably old related to old right occipital infarct). No evidence of large vessel occlusion or other hemodynamically significant stenosis. EKG shows atrial fibrillation, PMFSH Past Medical History Medical History Complex partial seizure Dementia Persistent atrial fibrillation Cardiomyopathy Essential hypertension Alcohol abuse Family History Family History Father No problems noted. Mother No problems noted. Surgical History Surgical History H/O excision of mass (~11/02/23) H/O colonoscopy Hx of cardiac catheterization History of tonsillectomy History of appendectomy Social History Social History Household Members: Spouse and Family Housing: House Are you a primary director of patient care to a significant other at home: No Do you presently have visiting nurse or other home services: No Alcohol intake: former Patient Tobacco Use Status: Never used Tobacco Advance Directives Date on File: 11/28/21 service: No Meds Allergies Allergy/AdvReac Type Severity Reaction Status Date / Time No Known Allergies Allergy Verified 11/27/23 14:54 [No Known Allergies*] Active Medications: Current Medications Acetaminophen (Acetaminophen 325 Mg Tablet) 650 mg PO Q6H PRN PRN Reason: Pain, Mild (Pain Scale 1-3), fever or headache Apixaban (Apixaban 5 Mg Tablet) 5 mg PO BID [facility] Last Admin: 11/28/23 08:24 Dose: 5 mg Aspirin (Aspirin Enteric Coated 81 Mg Tablet.) 81 mg PO DAILY [facility] Last Admin: 11/28/23 08:24 Dose: 81 mg Atorvastatin Calcium (Atorvastatin Calcium 80 Mg Tablet) 80 mg PO DAILY [facility] Last Admin: 11/28/23 08:23 Dose: 80 mg Calcium Carbonate (Calcium Carbonate 750 Mg Tab.Chew) 750 mg PO Q4H PRN PRN Reason: Heartburn Cyanocobalamin (Cyanocobalamin (Vitamin B-12) 1,000 Mcg Tablet) 1,000 mcg PO DAILY [facility] Folic Acid (Folic Acid 1 Mg Tablet) 1 mg PO DAILY [facility] Last Admin: 11/28/23 08:24 Dose: 1 mg Levetiracetam (Levetiracetam 500 Mg Tablet) 500 mg PO BID [facility] Last Admin: 11/28/23 08:23 Dose: 500 mg Magnesium Hydroxide (Milk Of Magnesia 30 Ml Oral.Susp) 30 ml PO DAILY PRN PRN Reason: Constipation Melatonin (Melatonin 3 Mg Tablet) 6 mg PO BEDTIME PRN PRN Reason: Insomnia Metoprolol Succinate (Metoprolol Succinate Er 50 Mg Tab.Er.24h) 50 mg PO DAILY [facility]; Protocol Sodium Chloride (0.9 % Sodium Chloride Flush 3 Ml Syringe) 3 ml IVFLUSH QSHIFT [facility] Last Admin: 11/28/23 17:14 Dose: 3 ml Thiamine HCl (Thiamine Hcl 100 Mg Tablet) 100 mg PO DAILY [facility] Last Admin: 11/28/23 08:24 Dose: 100 mg Home Medications ?Medication ?Instructions ?Recorded ?Confirmed ?Last Taken ?Type acetaminophen 325 mg tablet 650 mg PO Q6H PRN Headache 11/23/21 11/28/23 Unknown History (Tylenol) cyanocobalamin (vitamin B-12) 1,000 mcg PO DAILY 11/23/21 11/28/23 11/22/21 History 1,000 mcg tablet metoprolol succinate 50 mg 50 mg PO DAILY 01/10/22 11/28/23 11/02/23 History tablet,extended release 24 hr atorvastatin 20 mg tablet 20 mg PO DAILY 09/20/22 11/28/23 Unknown History levetiracetam 500 mg tablet 500 mg PO BID 11/27/23 11/28/23 Unknown History Physical Exam 2 Vital Signs: Vital Signs: Last Vital Signs Temp 97.8 F 08/14/24 16:00 Pulse 66 11/28/23 16:00 Resp 20 11/28/23 16:00 BP 102/60 11/28/23 16:00 Pulse Ox 99 11/28/23 16:00 O2 Del Method Room Air 11/28/23 16:00 BMI result Body Mass Index 22.4 Neuro: Other: He is alert, oriented to person only. He says he is a 53 years old is disoriented to time and place. Unreliable historian. His cranial nerves appear to be normal. Speech is fluent. There is no drift of the upper extremities. He moves all 4 extremities without any apparent weakness. Plantar response are flexor. Neck is supple Results Labs 11/28/23 05:42 11/28/23 05:42 Labs: Short CBC 11/28/23 Range/Units 05:42 WBC 8.6 (4.8-10.8) X10*3/uL Hgb 14.8 (14.0-18.0) g/dl Hct 43.1 (42.0-52.0) % Plt Count 179 (160-400) X10*3/uL BMP 11/28/23 05:42 Sodium 139 Potassium 3.1 L Chloride 103 Carbon Dioxide 26 BUN 6 L Creatinine 0.97 Calcium 8.9 D Assessment and Plan (1) Ataxia: Status: Acute He is having balance problems and has fallen a few times. He does not have any clear focal findings to suggest a new stroke. He obviously has a significant dementia. I would recommend an MRI of the brain to make sure there is been no acute to a lesion in the cerebellum. PT OT for gait imbalance. (2) Complex partial seizure: Status: Acute Continue Keppra at previous doses. Procedures Date of Service Date of Service: 11/28/23
--- NOTE | 2023-11-28 19:06 | HO.SKINPHOTO ---
Patient is new admission this morning. Patient comes from home with complaints of unsteady gait. Admission documents performed with due to patient having hx of dementia. Patient is alert and oriented X1-2. Patient remains on room air and lung sounds clear throughout. Patient is continent and last BM is 11/27/23. Patient is 1 assist with walker for transfer and ambulation. Patient observed to be weak and have slight unsteady gait. Neuros completed q4. Patient has sitter and camera in room due to history of sun downing, attempting to pull at lines and attempting to self transfer. Frequent rounding performed and safety maintained. Patient skin assessed and multiple skin issues were observed and documented below. Wound consultation placed and areas cleaned and re-dressed. Skin Tear to L arm: per pt had fall at home and hit arm causing him to have skin tear. R elbow biopsy site: per pt had skin biopsy performed to this arm and patient then accidentally ended up picking at area. L foot bruise: per patient had fall at home and might of hit his foot Front of L foot bruising: per pt fall at home and might of hit foot/toes.
[2023-11-28 19:32] VITALS: BP 132/85; PULSE 88; RESP 18; TEMP 36.9; O2SAT 96
[2023-11-28] MEDS: Acetaminophen 325 MG TABLET 650 MG PO (22:42)
[2023-11-29 04:12] VITALS: BP 139/93; PULSE 82; RESP 16; TEMP 36.6; O2SAT 96
[2023-11-29 07:42] VITALS: BP 130/77; PULSE 69; RESP 18; TEMP 36.8; O2SAT 95
[2023-11-29] MEDS: Aspirin Enteric Coated 81 MG TABLET.DR PO (08:53)
[2023-11-29] MEDS: Apixaban 5 MG TABLET PO ×2 (08:53→20:15)
[2023-11-29] MEDS: levETIRAcetam 500 MG TABLET PO ×2 (08:53→20:15)
[2023-11-29] MEDS: Atorvastatin Calcium 80 MG TABLET PO (08:54)
[2023-11-29] MEDS: Thiamine HCL 100 MG TABLET PO (08:54)
[2023-11-29] MEDS: Metoprolol Succinate ER 50 MG TAB.ER.24H PO (08:54)
[2023-11-29] MEDS: Cyanocobalamin (Vitamin B-12) 1,000 MCG TABLET 1000 MCG PO (08:54)
[2023-11-29] MEDS: Folic Acid 1 MG TABLET PO (08:54)
[2023-11-29] MEDS: 0.9 % Sodium Chloride Flush 3 ML SYRINGE IVFLUSH ×3 (08:55→20:15)
[2023-11-29 11:43] VITALS: BP 138/88; PULSE 85; RESP 18; TEMP 36.4; O2SAT 94
--- NOTE | 2023-11-29 11:43 | P.PNIM_ITS ---
Subjective Subjective Date of Service: 11/29/23 Interval History: no new complaints Physical Exam 2 Vital Signs: Vital Signs: Last Vital Signs Temp 98.2 F 11/29/23 07:42 Pulse 69 11/29/23 07:42 Resp 18 11/29/23 07:42 BP 130/77 11/29/23 07:42 Pulse Ox 95 11/29/23 07:42 O2 Del Method Room Air 11/29/23 07:42 BMI result Body Mass Index 22.4 Neuro: Other: He is alert, oriented to person only. He says he is a 53 years old is disoriented to time and place. Unreliable historian. His cranial nerves appear to be normal. Speech is fluent. There is no drift of the upper extremities. He moves all 4 extremities without any apparent weakness. Plantar response are flexor. Neck is supple Objective Data Active Medications Acetaminophen (Acetaminophen 325 Mg Tablet) 650 mg PO Q6H PRN PRN Reason: Pain, Mild (Pain Scale 1-3), fever or headache Last Admin: 11/28/23 22:42 Dose: 650 mg Documented By: BUD Apixaban (Apixaban 5 Mg Tablet) 5 mg PO BID [facility] Last Admin: 11/29/23 08:53 Dose: 5 mg Documented By: SHARON Aspirin (Aspirin Enteric Coated 81 Mg Tablet.) 81 mg PO DAILY [facility] Last Admin: 11/29/23 08:53 Dose: 81 mg Documented By: SHARON Atorvastatin Calcium (Atorvastatin Calcium 80 Mg Tablet) 80 mg PO DAILY [facility] Last Admin: 11/29/23 08:54 Dose: 80 mg Documented By: SHARON Calcium Carbonate (Calcium Carbonate 750 Mg Tab.Chew) 750 mg PO Q4H PRN PRN Reason: Heartburn Cyanocobalamin (Cyanocobalamin (Vitamin B-12) 1,000 Mcg Tablet) 1,000 mcg PO DAILY [facility] Last Admin: 11/29/23 08:54 Dose: 1,000 mcg Documented By: SHARON Folic Acid (Folic Acid 1 Mg Tablet) 1 mg PO DAILY [facility] Last Admin: 11/29/23 08:54 Dose: 1 mg Documented By: SHARON Levetiracetam (Levetiracetam 500 Mg Tablet) 500 mg PO BID [facility] Last Admin: 08/15/24 08:53 Dose: 500 mg Documented By: SHARON Magnesium Hydroxide (Milk Of Magnesia 30 Ml Oral.Susp) 30 ml PO DAILY PRN PRN Reason: Constipation Melatonin (Melatonin 3 Mg Tablet) 6 mg PO BEDTIME PRN PRN Reason: Insomnia Metoprolol Succinate (Metoprolol Succinate Er 50 Mg Tab.Er.24h) 50 mg PO DAILY [facility]; Protocol Last Admin: 11/29/23 08:54 Dose: 50 mg Documented By: SHARON Sodium Chloride (0.9 % Sodium Chloride Flush 3 Ml Syringe) 3 ml IVFLUSH QSHIFT [facility] Last Admin: 11/29/23 08:55 Dose: 3 ml Documented By: SHARON Thiamine HCl (Thiamine Hcl 100 Mg Tablet) 100 mg PO DAILY [facility] Last Admin: 11/29/23 08:54 Dose: 100 mg Documented By: SHARON Labs 11/28/23 05:42 11/28/23 05:42 Assessment and Plan (1) Ataxia: Status: Acute Plan 78M PMH complex partial seizures on Keppra, persistent atrial fibrillation anticoagulated with Eliquis, unspecified dementia, hypertension, cardiomyopathy, alcohol use disorder presented with left sided weakness, ataxia acute CVA left sided weakness, ataxia eliquis, asa, statin plan for rehab Persistent atrial fibrillation- rate controlled continue eliquis, hold metoprolol in setting of permissive htn Complex partial seizure continue keppra HTN hold metoprolol, amlodipine in setting for permissive htn Unspecified dementia mentation baseline Unspecified cardiomyopathy hold bb as above Alcohol use disorder monitor on ciwa, po thiamine and folic acid dvt prophylaxis- eliquis full code reason for continued hospitalization:awaiting placement Quality Stroke Does the patient have a stroke diagnosis?: Yes Reason for No Anti-thrombotic by Day Two: Drug treatment not indicated VTE Prior VTE?: No VTE Risk Level:: Medical - moderate - high VTE Device Contraindication: Treatment Not Indicated VTE Drug Contraindication: N/A - Med Ordered
--- NOTE | 2023-11-29 12:23 | HO.WOUND ---
Wound Consult: Initial 78yr old? male admitted to [facility] on 11/27/23 - See progress notes and H&P for detailed history.? Wound consult placed for bilateral elbows.? Patient agreeable to assessment and photo documentation.? Patient has dementia and at bedside and provided history. The left arm is a skin tear from a fall at home prior to admission - she had been treating with topical over the counter antibiotic ointment and a bandaid. The site is assessed below no s/s of infection in fact the flap was re-approximated to the wound bed and has adhered and is healing well. Recommend skin tear treatment of xeroform and gauze wrap dressing. Left arm skin tear The right elbow is a surgical site from approximately a month ago from a large benign tumor removed. At home the patient started to rip his stitches out and cause the wound. The patient prior to admission was seen by the performing elbow surgeon and was recommending a cover dressing to keep patient from picking at the wound. Right Elbow Etiology: ?Surgical site dehiscence Measurements: 0.6cm x 0.5cm x 0.2cm Wound Bed: red moist tissue with some adherent yellow slough Drainage / Odor: lopes yellow drainge no odor noted Edges: ? irregular Maribel wound: ?red dark erythema - hyperpigmentation noted - No Induration, Fluctuance and No Warmth noted Pain: denies Goals of Treatment: ? Moist wound healing *the patients showed me a picture of the site prior to surgery with the large lacrosse ball sized area noted - the dark red and hyperpigmentation was noted in that photo prior to surgery so periwound is not concerning for infection at this time. No other s/s of infection to the site. Recommendations: 1. Turn and Reposition every 2 hours and as needed for patient comfort.? Use pillows or wedges to support off loading positions. 2. Off Load all bony prominences with use of pillows and heel boots if needed.? Apply Preventative foams where needed. ? 3. Monitor for incontinence and moisture control, use barrier creams when needed for prevention and treatment. 4. Provide adequate and supplemental nutrition.? 5. Order or Continue low air loss mattress. 6. When applicable maintain blood glucose levels per Providers order. 7. Left arm - Cleanse with NS pay dry cover with xeroform and gauze wrap. Change daily. 8. Right Elbow - Cleanse with NS pay dry cover with Durafiber AG and gauze wrap. Change daily. Re-consult wound care Nurse for wound deterioration or wound changes.
[2023-11-29] MEDS: Acetaminophen 325 MG TABLET 650 MG PO (20:15)
[2023-11-29 23:13] VITALS: BP 119/68; PULSE 87; RESP 18; TEMP 36.7; O2SAT 97
[2023-11-30 06:33] VITALS: BP 135/81; PULSE 74; RESP 16; TEMP 36.7; O2SAT 98
[2023-11-30 07:58] VITALS: BP 133/77; PULSE 72; RESP 20; TEMP 36.9; O2SAT 97
--- NOTE | 2023-11-30 08:12 | MHC.CM.PN ---
EMR REVIEWED, CM RECEIVED MESSAGE FROM [facility] WHO IS INTERESTED IN PT HOWEVER PT MUST BE OFF VM FOR 24HRS PRIOR TO ADMISSION, CM WILL DISCUSS W/HOSPITALIST/NSG AND CONT TO FOLLOW.
[2023-11-30] MEDS: Atorvastatin Calcium 80 MG TABLET PO (09:01)
[2023-11-30] MEDS: Thiamine HCL 100 MG TABLET PO (09:01)
[2023-11-30] MEDS: Apixaban 5 MG TABLET PO (09:01)
[2023-11-30] MEDS: Metoprolol Succinate ER 50 MG TAB.ER.24H PO (09:01)
[2023-11-30] MEDS: Aspirin Enteric Coated 81 MG TABLET.DR PO (09:01)
[2023-11-30] MEDS: levETIRAcetam 500 MG TABLET PO (09:01)
[2023-11-30] MEDS: Cyanocobalamin (Vitamin B-12) 1,000 MCG TABLET 1000 MCG PO (09:02)
[2023-11-30] MEDS: Folic Acid 1 MG TABLET PO (09:02)
[2023-11-30] MEDS: 0.9 % Sodium Chloride Flush 3 ML SYRINGE IVFLUSH (09:02)
--- NOTE | 2023-11-30 11:17 | HO.PM.IMPN ---
Subjective Subjective Date of Service: 11/30/23 Interval History: no new complaints Physical Exam Vital Signs: Vital Signs: Last Vital Signs Temp 98.5 F 11/30/23 07:58 Pulse 72 11/30/23 07:58 Resp 20 11/30/23 07:58 BP 133/77 11/30/23 07:58 Pulse Ox 97 11/30/23 07:58 O2 Del Method Room Air 11/30/23 07:58 BMI result Body Mass Index 22.4 Neuro: Other: He is alert, oriented to person only. He says he is a 53 years old is disoriented to time and place. Unreliable historian. His cranial nerves appear to be normal. Speech is fluent. There is no drift of the upper extremities. He moves all 4 extremities without any apparent weakness. Plantar response are flexor. Neck is supple Objective Data Active Medications Acetaminophen (Acetaminophen 325 Mg Tablet) 650 mg PO Q6H PRN PRN Reason: Pain, Mild (Pain Scale 1-3), fever or headache Last Admin: 11/29/23 20:15 Dose: 650 mg Documented By: BUD Apixaban (Apixaban 5 Mg Tablet) 5 mg PO BID [facility] Last Admin: 11/30/23 09:01 Dose: 5 mg Documented By: EAMON Aspirin (Aspirin Enteric Coated 81 Mg Tablet.) 81 mg PO DAILY [facility] Last Admin: 11/30/23 09:01 Dose: 81 mg Documented By: EAMON Atorvastatin Calcium (Atorvastatin Calcium 80 Mg Tablet) 80 mg PO DAILY [facility] Last Admin: 11/30/23 09:01 Dose: 80 mg Documented By: EAMON Calcium Carbonate (Calcium Carbonate 750 Mg Tab.Chew) 750 mg PO Q4H PRN PRN Reason: Heartburn Cyanocobalamin (Cyanocobalamin (Vitamin B-12) 1,000 Mcg Tablet) 1,000 mcg PO DAILY [facility] Last Admin: 11/30/23 09:02 Dose: 1,000 mcg Documented By: EAMON Folic Acid (Folic Acid 1 Mg Tablet) 1 mg PO DAILY [facility] Last Admin: 11/30/23 09:02 Dose: 1 mg Documented By: EAMON Levetiracetam (Levetiracetam 500 Mg Tablet) 500 mg PO BID [facility] Last Admin: 11/30/23 09:01 Dose: 500 mg Documented By: EAMON Magnesium Hydroxide (Milk Of Magnesia 30 Ml Oral.Susp) 30 ml PO DAILY PRN PRN Reason: Constipation Melatonin (Melatonin 3 Mg Tablet) 6 mg PO BEDTIME PRN PRN Reason: Insomnia Metoprolol Succinate (Metoprolol Succinate Er 50 Mg Tab.Er.24h) 50 mg PO DAILY [facility]; Protocol Last Admin: 11/30/23 09:01 Dose: 50 mg Documented By: EAMON Sodium Chloride (0.9 % Sodium Chloride Flush 3 Ml Syringe) 3 ml IVFLUSH QSHIFT [facility] Last Admin: 11/30/23 09:02 Dose: 3 ml Documented By: EAMON Thiamine HCl (Thiamine Hcl 100 Mg Tablet) 100 mg PO DAILY [facility] Last Admin: 11/30/23 09:01 Dose: 100 mg Documented By: EAMON Labs 11/28/23 05:42 11/28/23 05:42 Assessment and Plan (1) Ataxia: Status: Acute Plan 78M PMH complex partial seizures on Keppra, persistent atrial fibrillation anticoagulated with Eliquis, unspecified dementia, hypertension, cardiomyopathy, alcohol use disorder presented with left sided weakness, ataxia acute CVA left sided weakness, ataxia eliquis, asa, statin plan for rehab 5th left metatarsal fracture boot, WBAT, outpatient ortho Persistent atrial fibrillation- rate controlled continue eliquis, metoprolol Complex partial seizure continue keppra HTN metoprolol, amlodipine Unspecified dementia mentation baseline Unspecified cardiomyopathy metoprolol Alcohol use disorder monitor on ciwa, po thiamine and folic acid dvt prophylaxis- eliquis full code reason for continued hospitalization:awaiting placement Quality Stroke Does the patient have a stroke diagnosis?: Yes Reason for No Anti-thrombotic by Day Two: Drug treatment not indicated VTE Prior VTE?: No VTE Risk Level:: Medical - moderate - high VTE Device Contraindication: Treatment Not Indicated VTE Drug Contraindication: N/A - Med Ordered
[2023-11-30 11:30] VITALS: BP 146/93; PULSE 73; RESP 20; TEMP 36.8; O2SAT 98
[2023-11-30 11:41] LABS: Glucose, Whole Blood 114 mg/dL (60-115)
[2023-11-30 13:58] VITALS: PULSE 73; O2SAT 98
--- NOTE | 2023-11-30 14:10 | W.MHC.F2F ---
Service Date Service Date: 11/30/23 Encounter Date of encounter: 11/30/23 Reasons for Services Signs and symptoms assessed: ataxia Reason for physical therapy: home safety and mobility and therapeutic exercises Reason for occupational therapy: home safety and mobility and therapeutic exercises Homebound: Leaving the home is medically contraindicated at this time without the asist of a device and/or another person due th the listed conditions above and below. Reason homebound: unsteady gait / fall risk Certification: Based on the above findings, I certify that this patient is confined to the home and needs intermittent penitentiary care, physical therapy and/or speech therapy, or continues to need occupational therapy. The patient is under my care, and I have initiated the establishment of the plan of care. The patient will be followed by a physician who will periodically review the plan of care. Time Spent With Patient Time: Total time managing care of this patient today ____ minutes.
--- NOTE | 2023-11-30 14:10 | PM.DS ---
DS: Providers Provider Date of Service: 11/30/23 Date of admission: 11/29/23 15:20 Date of discharge: 11/30/23 Primary care physician: Kwame Diop MD Consults: 11/27/23 20:19 Consult to Neurology Routine Consulting Provider: [facility] Reason for consultation: tia 11/28/23 18:24 Consult to Wound Care Routine Reason for consultation: R elbow wound / L elbow skin tear DS: Diagnosis Discharge Diagnosis (1) Ataxia: Status: Acute DS: Summary Hospital Course Hospital Course: from initial hpi: 78-year-old male with history of complex partial seizures on Keppra, persistent atrial fibrillation anticoagulated with Eliquis, unspecified dementia, hypertension, cardiomyopathy, alcohol use disorder presented to the ED earlier today from home accompanied by his due to multiple falls over the last week but worsening unsteady gait with left-sided weakness noted last night. Last known well time was 19:30 last night. Patient is a very poor historian at baseline secondary to his underlying dementia and history obtained from and ED provider. The patient is able to tell me his name, where he is, and the year but is unable to tell me why he is in the hospital. Once prompted, he does recall having falls and reports pain in the right elbow but has full range of motion of the right upper extremity. Upon entry into exam room, patient is attempting to room move his IV and has removed multiple telemetry leads. Since arrival, vital signs have been stable, mildly hypertensive to 150/96. Hematology studies unremarkable. Renal function baseline, electrolyte levels normal. Glucose 118. Total bilirubin 2.0, consistent with baseline, LFTs otherwise within normal limits. Urinalysis unremarkable. Negative for COVID-19. Head CT negative for acute intracranial abnormality which shows moderate underlying microangiopathy and generalized cerebral volume loss as well as a chronic lacunar infarct of the right thalamus. CT of the head/neck again shows chronic lacunar infarct has noted as well as small region of encephalomalacia in the right occipital lobe as well as an age-indeterminate occlusion of the P2 and distal segments of the right CONFIGURATION DEVELOPER. Otherwise, no evidence of large vessel occlusion or other hemodynamically significant stenosis. EKG shows atrial fibrillation, rate [address]/T-wave abnormalities. hospital course: Patient admitted for ataxia found to be due to acute CVAs. MRI showed: Multiple acute infarcts in the right CONFIGURATION DEVELOPER territory involving the right ventral thalamus extending into the subthalamic region, right splenium of the corpus callosum/medial periatrial white matter, and several within the right occipital lobe. Was continued on Eliquis, aspirin, statin. Was seen by PT OT who recommended rehab, however patient improved and will be discharged home with rehab. Patient also found to have 5th left metatarsal fracture, recommendations were for hard sole shoe or boot and weight-bearing as tolerated with outpatient orthopedics follow-up. For persistent atrial fibrillation he was continued on Eliquis and metoprolol. For complex partial seizure history he was continued on Keppra. For hypertension was continued on metoprolol and amlodipine. For unspecified dementia his mentation was at baseline. For unspecified cardiomyopathy was continue with the metoprolol. For history of alcohol use disorder he had no evidence of withdrawal. Time Attestation Discharge Coordination Time (in mins): 37 Quality: Safe Use of Opioids Does Pt have an Active Cancer Diagnosis on the Problem List?: No Quality: Stroke Does the patient have a stroke diagnosis?: Yes Reason for No Anti-thrombotic at DC: N/A - Med Ordered Reason for No Anticoagulant at DC: N/A - Med Ordered Reason Not Initiating IV-Tpa: Drug treatment not indicated Reason for No Anti-thrombotic by Day Two: N/A - Med Ordered Reason for No Statin at DC: N/A - Med Ordered Physical Exam Vital Signs: Vital Signs: Last Vital Signs Temp 98.3 F 11/30/23 11:30 Pulse 73 11/30/23 13:58 Resp 20 11/30/23 11:30 BP 146/93 H 11/30/23 11:30 Pulse Ox 98 11/30/23 13:58 O2 Del Method Room Air 11/30/23 07:58 BMI result Body Mass Index 22.4 Neuro: Other: He is alert, oriented to person only. He says he is a 53 years old is disoriented to time and place. Unreliable historian. His cranial nerves appear to be normal. Speech is fluent. There is no drift of the upper extremities. He moves all 4 extremities without any apparent weakness. Plantar response are flexor. Neck is supple DS: Data Data Completed and Pending Labs on day of discharge: Laboratory Results - last 24 hr 11/30/23 11:30 POC Glucose 114 Discharge Plan Discharge Anticipated Discharge Date/Time: 11/30/23 14:06 Patient Disposition: Home Health Service Discharge Diagnosis: cva Referrals: Kwame Diop MD [Primary Care Provider] - 1 Week Jerry Ferrer MD [Physician] - 1 Week Discharge Medications: Continued Eliquis 5 mg tablet 5 mg PO BID 90 Days Qty: 180 3RF cyanocobalamin (vitamin B-12) 1,000 mcg Tablet 1,000 mcg PO DAILY acetaminophen [Tylenol] 325 mg Tablet 650 mg PO Q6H PRN (Reason: Headache) metoprolol succinate 50 mg tablet extended release 24 hr 50 mg PO DAILY levetiracetam 500 mg tablet 500 mg PO BID atorvastatin 20 mg tablet 20 mg PO DAILY Discharge Orders: Discharge Order (Routine); Ordered 11/30/23 Ordered By: Shreyas Curtis Diet: Advance to usual diet Activity on Discharge: As tolerated Stand Alone Forms: Patient Portal Discharge page Print Language: Botswanan Activity Restrictions/Additional Instructions: Topical wound care recommendation: Left arm - Cleanse with NS pay dry cover with xeroform and gauze wrap. Change daily. Right Elbow - Cleanse with NS pay dry cover with Durafiber AG and gauze wrap. Change every 3 days. Care Plan Goals: prevent cva Health Concerns: foot fracture, cva Plan of Treatment: mike blanco asa, pt, ot wbat, ortho follow up Assessment: see above
== END 2023-11-30 15:10 | disposition home health service (06) | DRG 65 ==
LOC: HO.ED 18:39 → HO.EDOVER 20:24 → HO.IMC 11-28 07:58
PROVIDERS: Physician Assistant; Admitting Provider Physician Assistant; Emergency Provider Emergency Medicine; PCP Internal Medicine; Visit Provider Internal Medicine
DX: I63.531 Cerebral infarction due to unspecified occlusion or stenosis of right posterior cerebral artery (principal); G40.209 Localization-related (focal) (partial) symptomatic epilepsy and epileptic syndromes with complex partial seizures, not intractable, without status epilepticus; G81.94 Hemiplegia, unspecified affecting left nondominant side; I48.19 Other persistent atrial fibrillation; I42.9 Cardiomyopathy, unspecified; F03.90 Unspecified dementia, unspecified severity, without behavioral disturbance, psychotic disturbance, mood disturbance, and anxiety; S92.352A Displaced fracture of fifth metatarsal bone, left foot, initial encounter for closed fracture; R29.701 NIHSS score 1; W19.XXXA Unspecified fall, initial encounter; I10 Essential (primary) hypertension; R27.0 Ataxia, unspecified; F10.10 Alcohol abuse, uncomplicated; Z20.822 Contact with and (suspected) exposure to COVID-19; Z79.01 Long term (current) use of anticoagulants; Z79.899 Other long term (current) drug therapy
CPT/HCPCS: 36415; 70450; 70496; 70498; 70551; 71045; 73630; 74018; 80048; 80061; 80076; 81003; 82947; 83735; 85025; 85610; 85730; 87635; 93005; 97110; 97116; 97162; 97166; 99222; 99285; J1953; J2060; Q9967

== ENCOUNTER → 2023-11-27 14:53 | Outpatient (BNV) | payer MEDICARE, SELFPAY | PROVIDERS: Emergency Provider Emergency Medicine; PCP Internal Medicine; Visit Provider Internal Medicine | DX: R94.31 Abnormal electrocardiogram [ECG] [EKG] (principal) | CPT/HCPCS: 93010 ==

== ENCOUNTER → 2023-11-27 20:23 | Outpatient (BNV) | payer MEDICARE, SELFPAY | PROVIDERS: Admitting Provider Physician Assistant; Emergency Provider Emergency Medicine; PCP Internal Medicine; Visit Provider Psychiatry & Neurology Neurology | DX: R27.0 Ataxia, unspecified (principal); G40.209 Localization-related (focal) (partial) symptomatic epilepsy and epileptic syndromes with complex partial seizures, not intractable, without status epilepticus; F03.C0 Unspecified dementia, severe, without behavioral disturbance, psychotic disturbance, mood disturbance, and anxiety | CPT/HCPCS: 99222 ==

== ENCOUNTER → 2023-11-27 20:23 | Outpatient (BNV) | payer MEDICARE, SELFPAY | PROVIDERS: Admitting Provider Physician Assistant; Emergency Provider Emergency Medicine; PCP Internal Medicine; Visit Provider Physician Assistant | DX: I69.393 Ataxia following cerebral infarction (principal) | CPT/HCPCS: 99223; 99232; 99239; G0180 ==

== ENCOUNTER 2023-12-04 14:55 | Outpatient (AMB) | payer MEDICARE, SELFPAY ==
--- NOTE | 2023-12-04 14:58 | AM.OFFWIN_ITS ---
Intake Vital Signs 12/04/23 14:59 Height 5 ft 9 in Weight 152 lb BMI 22.4 BP 120/82 Blood Pressure Location Rt brachial Position Sitting Pulse 89 Pulse Source Pulse Oximeter Temp 98.1 F Temp Source Oral Pulse Oximetry (%) 96 Oxygen Delivery Method Room Air Intake Visit Reasons: EP- fracture of LT foot/ boot Intake Note: pt c/o fracture of LT foot. Patient Tobacco Use Status: Never used Tobacco Allergies No Known Allergies [No Known Allergies*] Allergy (Verified 12/04/23 14:59) Do you need a note to return to daycare/school/sports/work: No HPI HPI Comments History of Present Illness Details Patient is a 78-year-old male who was diagnosed with a Fracture of the fifth metatarsal bone during an inpatient stay at [facility] on 11/28/2023. His is with him and is helping explain everything that happened as the patient has dementia. She states he was discharged without an orthopedic boot or shoe. They called their primary care doctor who told to come here to get one today. He is ambulating with a walker. X-ray from November 27 shows Fracture of the fifth metatarsal bone. Patient's states that they were referred to an orthopedics clinic in [place] but she does not feel comfortable driving all that weighs. She states they have not even heard back from them regarding an appointment anyway. She states he has been getting home physical therapy and occupational therapy but it is very difficult to him to do it because of the pain in his foot without any kind of support/boot. PFSH Medical History Complex partial seizure Dementia Persistent atrial fibrillation Cardiomyopathy Essential hypertension Alcohol abuse Surgical History H/O excision of mass (~11/02/23) H/O colonoscopy Hx of cardiac catheterization History of tonsillectomy History of appendectomy Family History Father No problems noted. Mother No problems noted. Social History Household Members: Spouse and Family Housing: House Are you a primary career development coordinator/teacher to a significant other at home: No Do you presently have visiting nurse or other home services: No Alcohol intake: former Patient Tobacco Use Status: Never used Tobacco Advance Directives Date on File: 11/28/21 service: No Review of Systems Const All systems reviewed & are unremarkable except as noted in HPI and below Physical Exam Vital Signs: Last Vital Signs Temp 98.1 F 12/04/23 14:59 Pulse 89 12/04/23 14:59 BP 120/82 12/04/23 14:59 Pulse Ox 96 12/04/23 14:59 Oxygen Delivery Method Room Air 12/04/23 14:59 BMI result Body Mass Index 22.4 Const General: cooperative, healthy appearing, comfortable, no acute distress and well developed Orientation/consciousness: patient oriented x3 Limitations: no limitations HEENT Head: Yes normal to inspection Ears: hearing grossly normal bilaterally General nose exam: Normal external nose present Face and sinus: Yes normal facial exam Eyes General: appearance normal, both eyes and all related structures Neck Neck: Yes normal visual inspection and Yes full ROM Resp Effort & Inspection: normal respiratory effort and able to speak in complete sentences Skin General skin exam: no rashes or lesions noted Neuro General: patient oriented x3 Extrem Other: Patient placed in boot on left side, was able to ambulate up and down hallway well with and without walker Assessment & Plan Assessment & Plan (1) Fracture of 5th metatarsal: Code(s): S92.353A - Displaced fracture of fifth metatarsal bone, unspecified foot, initial encounter for closed fracture Qualifiers: Encounter type: initial encounter Fracture type: closed Fracture alignment: nondisplaced Laterality: left Qualified Code(s): S92.355A - Nondisplaced fracture of fifth metatarsal bone, left foot, initial encounter for closed fracture Plan: Gave patient a boot, we will send referral to [facility] and [place] as ana lechuga's can not drive all the way to [place] which is where they were originally referred to but they had an heard about a follow up appointment yet. Recommended he continue his home PT and OT as able. Recommended he continue to use his walker for better balance with the boot. Plan See above Orders: Referrals Orthopedics Referral S92.355A - Nondisplaced fracture of fifth metatarsal bone, left foot, initial encounter for closed fracture Coding Level of Care Code Est Pt Level 3 (03811) Diagnoses Closed nondisplaced fracture of fifth metatarsal bone of left foot, initial encounter S92.355A Encounter type: initial encounter Fracture type: closed Fracture alignment: nondisplaced Laterality: left
[2023-12-04 14:59] VITALS: BP 120/82; PULSE 89; TEMP 36.7; O2SAT 96; BMI 22.4
== END 2023-12-04 15:32 | disposition home or self-care (01) ==
PROVIDERS: PCP Internal Medicine; Visit Provider Physician Assistant
DX: S92.355A Nondisplaced fracture of fifth metatarsal bone, left foot, initial encounter for closed fracture (principal)
CPT/HCPCS: 99213

== ENCOUNTER 2023-12-14 11:31 | Outpatient (REF) | payer MEDICARE, SELFPAY ==
--- NOTE | ~2023-12-14 | XR_ITS ---
EXAMINATION: XR FOOT, LEFT CLINICAL INFORMATION: Pain left foot COMPARISON: 11/28/2023 TECHNIQUE: AP, lateral, and oblique views of the left foot. FINDINGS: Redemonstration of mildly displaced impacted fracture of the distal metadiaphysis of the fifth metatarsal with associated soft tissue swelling. Fracture line is still visible. Bones are diffusely demineralized. Minimal plantar calcaneal spurring. XR/XR foot LT min 3V IMPRESSION: Redemonstration of mildly displaced impacted fracture of the distal metadiaphysis of the fifth metatarsal with associated soft tissue swelling. Fracture line is still visible. Electronically signed by: Karolina Campo MD 01/02/2024 12:50 PM EDT RP
== END 2023-12-14 11:32 | disposition home or self-care (01) ==
LOC: HO.XRAY 11:31
PROVIDERS: PCP Internal Medicine; Visit Provider Physician Assistant
DX: S92.355D Nondisplaced fracture of fifth metatarsal bone, left foot, subsequent encounter for fracture with routine healing (principal)
CPT/HCPCS: 73630; 84132; 99202

== ENCOUNTER 2023-12-14 12:01 | Outpatient (AMB) | payer MEDICARE, SELFPAY ==
--- NOTE | 2023-12-14 12:36 | A.OFFVIS_ITS ---
Intake Visit Reasons: FC- 5th MT fracture Intake Note: Darci is a 78 year old male who presents today for a fracture care visit for a fracture of fifth metatarsal bone s/p fall on 11/25/23. Patient was seen at [facility] ER on 11/27/23 due to concerns of stroke. His foot was addressed at his ER visit due to bruising. Xrays were taken and he presented to [place] walk in clinic for a walking boot. He was a given a boot that was not his correct size. His spouse states that he is not compliant with boot wear and tries to take off and wear walking shoes. Today he complains of pain/discomfort at his toes. He has been attending PT. Hx of dementia. Allergies No Known Allergies [No Known Allergies*] Allergy (Verified 12/14/23 12:44) HPI HPI FC- 5th MT fracture: Details: 78-year-old male who presents to the office today for an evaluation of left 5th metatarsal injury s/p fall, 11/25/23. He was seen at ER on 11/27/23 due to concerns of stroke where x-rays were performed. He was also seen at [place] [facility]in [facility] where he was given a walking boot which he reports was not of correct size. His spouse states he is not compliant with boot wear and tries to take off and wear walking shoes. He reports pain and discomfort in his toes. He has been working on physical therapy as instructed. He has a history of dementia. COUNT INCLUDES THE [facility] Medical History Complex partial seizure Dementia Persistent atrial fibrillation Cardiomyopathy Essential hypertension Alcohol abuse Surgical History H/O excision of mass (~11/02/23) H/O colonoscopy Hx of cardiac catheterization History of tonsillectomy History of appendectomy Family History Father No problems noted. Mother No problems noted. Social History Household Members: Spouse and Family Housing: House Are you a primary janitor caretaker to a significant other at home: No Do you presently have visiting nurse or other home services: No Alcohol intake: former Patient Tobacco Use Status: Never used Tobacco Advance Directives Date on File: 11/28/21 service: No Review of Systems Const All systems reviewed & are unremarkable except as noted in HPI and below Physical Exam Const General: cooperative, healthy appearing, comfortable, no acute distress, well developed and alert Orientation/consciousness: patient oriented x3 HEENT Head: Yes normal to inspection, Yes normocephalic and Yes atraumatic Eyes General: appearance normal, both eyes and all related structures Resp Effort & Inspection: normal respiratory effort and able to speak in complete sentences Cardio Rate: regular rate Peripheral pulses: Peripheral pulses 2+ throughout GI Palpation (GI): Soft to palpation Skin Lesions: no lesions Rashes: no rashes Neuro General: patient oriented x3 Extrem Other: Left foot: Skin intact.? There is some bruising of the lateral edge of the left foot.? There is tenderness at the neck of the 5th metatarsal. Sensation intact.? EHL intact.? No pain along the mediolateral malleolus.? Neurovascularly intact. Office Procedures Fracture Care Fracture Billing Code: Fracture Billing Code Results Reviewed Results Reviewed: xrays of the left foot show stable 5th mt neck fx Assessment & Plan Assessment & Plan (1) Fracture of 5th metatarsal: Code(s): S92.353A - Displaced fracture of fifth metatarsal bone, unspecified foot, initial encounter for closed fracture Category: Medical Qualifiers: Encounter type: initial encounter Fracture type: closed Fracture alignment: nondisplaced Laterality: left Qualified Code(s): S92.355A - Nondisplaced fracture of fifth metatarsal bone, left foot, initial encounter for closed fracture Plan He will transition to a regular street shoe based on comfort. He has a history of dementia and therefore is not entirely compliant with the boot. His accompanying in the office today states he has been wearing regular sneakers and has been ambulating without the boot. If symptoms persist or worsen, patient will contact the office, otherwise follow-up as needed. Orders: Orders XR foot LT min 3V Today M79.672 - Pain in left foot Patient Instructions: Scribed for Karen Zelaya PA-C, by Gary Baker emergency medical dispatcher, on 12/14/2023 at 12:30 PM EST.? I, Karen Zelaya PA-C, have personally reviewed and agree with the information entered by the scribe. Coding Level of Care Code New Pt Level 3 (78515) Complex EM visit Add On G2211 Diagnoses Closed nondisplaced fracture of fifth metatarsal bone of left foot, initial encounter S92.355A Encounter type: initial encounter Fracture type: closed Fracture alignment: nondisplaced Laterality: left CPT Codes Fracture Care - Fracture Billing Code: Fracture Billing Code ([id number])
== END 2023-12-14 13:11 | disposition home or self-care (01) ==
PROVIDERS: PCP Internal Medicine; Visit Provider Physician Assistant
DX: S92.355A Nondisplaced fracture of fifth metatarsal bone, left foot, initial encounter for closed fracture (principal)
CPT/HCPCS: 99203; 99213; G2211

== ENCOUNTER 2023-12-14 13:25 | Outpatient (REF) | payer MEDICARE, SELFPAY ==
[2023-12-14 14:05] LABS: Potassium 3.8 mmol/L (3.3-5.1)
== END 2023-12-14 13:26 | disposition home or self-care (01) ==
LOC: HO.LNP 13:25
PROVIDERS: Visit Provider Internal Medicine
DX: Z13.89 Encounter for screening for other disorder (principal)
CPT/HCPCS: 84132

== ENCOUNTER 2023-12-26 09:50 | Outpatient (AMB) | payer MEDICARE, SELFPAY ==
[2023-12-26 09:52] VITALS: BP 108/70; PULSE 80; BMI 21.6
--- NOTE | 2023-12-26 09:52 | A.OFFVIS_ITS ---
Vital Signs 12/26/23 09:52 Height 5 ft 9 in Weight 146 lb 6.191 oz BMI 21.6 BP 108/70 Blood Pressure Location Lt brachial Position Sitting Pulse 80 Pulse Source Pulse Oximeter Intake Visit Reasons: F/U [facility] Allergies No Known Allergies [No Known Allergies*] Allergy (Verified 12/14/23 12:44) Medication List - Last Reconciled 12/26/23 by Burke Felix MD acetaminophen (Tylenol) 650 mg PO Q6H PRN amlodipine 10 mg (2 x 5 mg) PO DAILY 90 days apixaban (Eliquis) 5 mg PO BID 90 days atorvastatin 20 mg PO DAILY cyanocobalamin (vitamin B-12) 1,000 mcg PO DAILY levetiracetam 500 mg PO BID metoprolol succinate ER 50 mg PO DAILY HPI Comments Details: Darci returns for follow-up regarding atrial fibrillation as well as cardiomyopathy. In November, it seems that he was admitted to the hospital with a stroke. However, he recovered completely. Suspect it is from intracranial disease than atrial fibrillation. Otherwise, no new concerns. From cardiac, he is doing well. [facility] Medical History Complex partial seizure Dementia Persistent atrial fibrillation Cardiomyopathy Essential hypertension Alcohol abuse Surgical History H/O excision of mass (~11/02/23) H/O colonoscopy Hx of cardiac catheterization History of tonsillectomy History of appendectomy Family History Father No problems noted. Mother No problems noted. Social History Household Members: Spouse and Family Housing: House Are you a primary complex care nurse to a significant other at home: No Do you presently have visiting nurse or other home services: No Alcohol intake: former Patient Tobacco Use Status: Never used Tobacco Advance Directives Date on File: 11/28/21 service: No Review of Systems Const Denies chills, Denies fatigue, Denies fever(s), Denies weight gain and Denies weight loss ENT Denies dizziness Card Denies chest pain, Denies leg edema, Denies lightheadedness, Denies palpitations, Denies dyspnea on exertion, Denies orthopnea and Denies other Resp Denies cough and Denies dyspnea on exertion GI Denies hematochezia and Denies change in stool character Musc Denies abnormal gait, Denies muscle weakness, Denies numbness, Denies radiating pain into limb and Denies tingling Neuro Denies abnormal gait, Denies dizziness, Denies numbness and Denies tingling Endo Denies fatigue and Denies palpitations Physical Exam Vital Signs: Last Vital Signs Pulse 80 12/26/23 09:52 BP 108/70 12/26/23 09:52 BMI result Body Mass Index 21.6 Const General: comfortable and no acute distress Orientation/consciousness: patient oriented x3 HEENT Other: Unremarkable Head: Yes normal to inspection Neck Neck: Yes normal visual inspection Chest Chest palpation & inspection: normal inspection of the chest Resp Auscultation: clear to auscultation bilaterally Cardio Palpation: normal PMI Heart sounds: S1 normal heart sound present, S2 normal heart sound present, no gallops, no murmurs and no rubs GI Palpation (GI): Soft to palpation Back/Spine/Pelvis Other: unremarkable Skin General skin exam: no rashes or lesions noted Neuro General: patient oriented x3 Extrem General: Yes normal to inspection Psych Mental Status: mental status grossly normal Assessment & Plan Assessment & Plan (1) Persistent atrial fibrillation: Code(s): I48.19 - Other persistent atrial fibrillation Category: Medical Plan: Continue beta-blockers and anticoagulation. (2) Stroke: Code(s): I63.9 - Cerebral infarction, unspecified Category: Medical Plan: In the recent CTA, encephalomalacia right occipital lobe; chronic infarct in the right thalamus; moderate microangiopathy, global cerebral volume loss; age indeterminate occlusion of P2/distal CAPTAIN WAITER/WAITRESS. No significant stenosis in the carotids or vertebrals. MRI with acute infarcts in the right CAPTAIN WAITER/WAITRESS territory. Overall, suspect it is all due to intracranial vascular disease and not embolic. (3) Cardiomyopathy: Comment: follows with [facility] Code(s): I42.9 - Cardiomyopathy, unspecified Category: Medical Plan: In the most recent echocardiogram, LVEF is 50-55%. Prior to that, LVEF 35-40%. In the cardiac catheterization, no significant CAD. Clinically, no heart failure symptoms or signs. Continue beta-blockers. Due to low blood pressure issues as well as hyperkalemia, not on lisinopril. Not on spironolactone for the same reason. (4) Essential hypertension: Code(s): I10 - Essential (primary) hypertension Category: Medical Plan: Stable. No changes. (5) Alcohol abuse: Code(s): F10.10 - Alcohol abuse, uncomplicated Category: Social Hx Plan: No longer drinking. Plan Discussed with . Coding Level of Care Code Est Pt Level 4 (81781) Diagnoses Persistent atrial fibrillation I48.19 Stroke I63.9 Cardiomyopathy I42.9 Essential hypertension I10 Alcohol abuse F10.10
== END 2023-12-26 10:08 | disposition home or self-care (01) ==
PROVIDERS: PCP Internal Medicine; Visit Provider Internal Medicine
DX: I48.19 Other persistent atrial fibrillation (principal); I63.9 Cerebral infarction, unspecified; I42.9 Cardiomyopathy, unspecified; I10 Essential (primary) hypertension; F10.10 Alcohol abuse, uncomplicated
CPT/HCPCS: 99214

== ENCOUNTER → 2023-12-26 09:50 | Outpatient (BNVA) | payer MEDICARE, SELFPAY | PROVIDERS: PCP Internal Medicine; Visit Provider Internal Medicine | DX: I48.19 Other persistent atrial fibrillation (principal); I42.9 Cardiomyopathy, unspecified; I10 Essential (primary) hypertension; Z86.73 Personal history of transient ischemic attack (TIA), and cerebral infarction without residual deficits | CPT/HCPCS: 99212 ==

== ENCOUNTER 2024-04-03 10:25 | Outpatient (REF) | payer MEDICARE, SELFPAY ==
[2024-04-03 14:39] LABS: Influenza A PCR NEGATIVE (Negative); Influenza B PCR NEGATIVE (Negative); Resp Syncy Virus RNA Qual PCR NEGATIVE (Negative); SARS COV2 PCR INHOUSE POSITIVE (Negative)
== END 2024-04-03 10:26 | disposition home or self-care (01) ==
LOC: HO.LAB 10:25
PROVIDERS: Registered Nurse; PCP Internal Medicine
DX: J06.9 Acute upper respiratory infection, unspecified (principal)
CPT/HCPCS: 0241U; 99212

== ENCOUNTER 2024-04-03 10:25 | Outpatient (AMB) | payer MEDICARE, SELFPAY ==
--- NOTE | 2024-04-03 10:30 | MHC.OFFWIV ---
Intake Vital Signs 04/03/24 10:42 Weight 148 lb BP 120/82 Blood Pressure Location Lt brachial Position Sitting Pulse 62 Pulse Source Pulse Oximeter Temp 99.3 F Temp Source Oral Pulse Oximetry (%) 97 Oxygen Delivery Method Room Air Intake Visit Reasons: EP-not eating,burping constantly (pt has dementia) Intake Note: Patient here because he has not been eating in the past 2-3 days and has been sleeping often. Patient Tobacco Use Status: Never used Tobacco Allergies No Known Allergies [No Known Allergies*] Allergy (Verified 04/03/24 10:43) Do you need a note to return to daycare/school/sports/work: No HPI EP-not eating,burping constantly (pt has dementia) HPI Details This note is constructed using voice recognition software. While every effort has been made to ensure accuracy, genetics teacher errors may have been included. The patient is a 79 year old male with history of dementia who presents to the clinic today with cough, low appetite, and increased burping for the past 2 days. Patient's reports that he has been refusing food and fluids for the last couple of days. His reports that 2 days ago, she offered him food, and he said he was not hungry, and that he was tired, and he went to bed. She reports typically he sleeps long portions of the day and night, however he has been sleeping more in the last couple of days. She notes that he has been coughing a little bit, not getting anything up. He denies fever, chills, body aches, sore throat, sinus congestion. PFS Medical History Complex partial seizure Dementia Persistent atrial fibrillation Cardiomyopathy Essential hypertension Alcohol abuse Surgical History H/O excision of mass (~11/02/23) H/O colonoscopy Hx of cardiac catheterization History of tonsillectomy History of appendectomy Family History Father No problems noted. Mother No problems noted. Social History Household Members: Spouse and Family Housing: House Are you a primary director of career services to a significant other at home: No Do you presently have visiting nurse or other home services: No Alcohol intake: former Patient Tobacco Use Status: Never used Tobacco Advance Directives Date on File: 11/28/21 service: No Review of Systems Const All systems reviewed & are unremarkable except as noted in HPI and below Physical Exam Vital Signs: Last Vital Signs Temp 99.3 F 04/03/24 10:42 Pulse 62 04/03/24 10:42 BP 120/82 04/03/24 10:42 Pulse Ox 97 04/03/24 10:42 Oxygen Delivery Method Room Air 04/03/24 10:42 Const General: cooperative, healthy appearing, comfortable and no acute distress Limitations: no limitations HEENT Head: Yes normal to inspection Ears: hearing grossly normal bilaterally, external ears normal and TM's normal bilaterally General nose exam: Normal external nose present, Normal nares present and No nasal discharge present Face and sinus: Yes normal facial exam and Yes sinuses nontender Mouth: Normal oral and palatal mucosa present and moist mucous membranes Throat: Yes tonsils normal, Yes uvula midline and Yes posterior oropharynx abnormal (Erythema) Eyes General: appearance normal, both eyes and all related structures Neck Neck: Yes normal visual inspection Resp Effort & Inspection: normal respiratory effort, able to speak in complete sentences, Actively coughing, no respiratory distress, not tachypneic, no tripod positioning and no use of accessory muscles Auscultation: clear to auscultation bilaterally Cardio Jugular venous distension: no JVD Rate: regular rate Rhythm: abnormal rhythm irregularly irregular Heart sounds: S1 normal heart sound present, S2 normal heart sound present, no click, no gallops, no murmurs and no rubs GI Inspection: Yes normal to inspection Palpation (GI): nontender Percussion: Yes normal to percussion Auscultation: normal bowel sounds Skin General skin exam: no rashes or lesions noted, elasticity normal and turgor normal Extrem General: Yes normal to inspection and Yes no clubbing, cyanosis or edema Assessment & Plan Assessment & Plan (1) URI (upper respiratory infection): Code(s): J06.9 - Acute upper respiratory infection, unspecified Qualifiers: URI type: unspecified URI Qualified Code(s): J06.9 - Acute upper respiratory infection, unspecified Plan: Viral swab obtained to rule out Covid, Influenza, and RSV based on symptoms. Advised mask wearing while symptomatic and quarantine per current CDC guidelines. Reviewed at home support methods including hydration, humidification, vix vapor rub, sinus rinse, and otc treatment options. Discussed treatment with antiviral therapy for covid with paxlovid and with Tamiflu for influenza, including appropriate use and side effects, and need to start medication within 5 day of symptom onset, preferably within 48 hours of symptom onset. Patient wishes to decline paxlovid therapy due to medication interaction potential and side effects. Advised follow up with worsening symptoms such as dyspnea at rest, which would require emergent evaluation. Plan See above for full details and plan. Orders: Orders SARS-CoV2/FLU/RSV Today J06.9 - Acute upper respiratory infection, unspecified Coding Level of Care Code Est Pt Level 3 (06116) Diagnoses Upper respiratory tract infection, unspecified type J06.9 URI type: unspecified URI
[2024-04-03 10:42] VITALS: BP 120/82; PULSE 62; TEMP 37.4; O2SAT 97
== END 2024-04-03 11:17 | disposition home or self-care (01) ==
PROVIDERS: PCP Internal Medicine; Visit Provider Registered Nurse
DX: J06.9 Acute upper respiratory infection, unspecified (principal)

== ENCOUNTER 2024-06-12 11:00 | Outpatient (REF) | payer MEDICARE, SELFPAY ==
[2024-06-12 11:07] LABS: MANUAL DIFF FLAG NO
[2024-06-12 11:13] LABS: Basophils Absolute Auto 0.1 X10*3/uL (0.0-0.2); Basophils Percent Auto 1.1 % (0-2); Eosinophils Absolute Auto 0.2 X10*3/uL (0.0-0.4); Eosinophils Percent Auto 1.9 % (0-4); Hematocrit 48.3 % (42.0-52.0); Hemoglobin 16.4 g/dl (14.0-18.0); Imm Gran Abs Auto 0.09 X10*3/uL (0.00-0.03); Imm Gran Pct Auto 0.9 % (0.0-0.4); Lymphocytes Percent Auto 39.2 % (20-40); Mean Corpuscular Hemoglobin 31.8 pg (27.0-33.0); Mean Corpuscular Volume 93.8 fL (80.0-98.0); Mean Platelet Volume 9.7 fL (9.4-12.4); Monocytes Absolute Auto 1.1 X10*3/uL (0.1-1.2); Monocytes Percent Auto 10.9 % (2-11); Neutrophils Absolute Auto 4.6 x10*3/uL (2.0-8.3); Platelet Count 209 X10*3/uL (160-400); Red Blood Count 5.15 X10*6/uL (4.60-5.80); Red Cell Distribution Width 13.8 % (11.0-16.0); White Blood Count 10.1 X10*3/uL (4.8-10.8)
[2024-06-12 11:23] LABS: Estimated Average Glucose 123 mg/dL; Hemoglobin A1c % 5.9 % (<6.0)
[2024-06-12 11:30] LABS: Alanine Aminotransferase 18 U/L (0-40); Albumin Level 3.9 g/dL (3.5-5.0); Alkaline Phosphatase 84 U/L (39-117); Anion Gap 11 (12-20); Aspartate Amino Transferase 31 U/L (5-37); Bilirubin Total 1.2 mg/dL (0.0-1.0); Blood Urea Nitrogen 8 mg/dL (9-16); Calcium 8.9 mg/dL (8.4-10.2); Carbon Dioxide 27 mmol/L (22-29); Chloride 107 mmol/L (96-108); Cholesterol 161 mg/dL (<200); Estimated Glomerular Filt Rate > 60; Glucose Fasting 94 mg/dL (60-99); HDL Cholesterol 49 mg/dL (>40); LDL Cholesterol Calculated 90 mg/dL (<100); Potassium 4.3 mmol/L (3.3-5.1); Sodium 141 mmol/L (135-145); Total Protein 6.4 g/dL (6.5-8.0); Triglycerides 114 mg/dL (<150)
[2024-06-12 11:32] LABS: Bacteria Urine None Seen (None Seen); Hyaline Casts Urine 0-2 /LPF (0-2); RBC Urine 0-2 /HPF (0-2); Squamous Epithelial Cell Urine 0-2 /HPF (0-2); WBC Urine 0-5 /HPF (0-5)
[2024-06-12 11:43] LABS: PSA,Total (Free>4and<10) 2.49 ng/mL (0.00-4.00)
[2024-06-12 11:58] LABS: Vitamin B12 1287 pg/mL (200-900)
[2024-06-12 12:26] LABS: Creatinine Urine 58.16 mg/dL; Microalbum/Creatinine Ratio Ur 13.7 ug/mg cr (<30)
[2024-06-12 12:44] LABS: Folate 14.1 ng/mL (> or = 4.0)
--- OUTSIDE RECORDS SUMMARY | 2024-06-12 13:18 | XMS_ITS ---
Author Organization Kwame Diop MD Address [address] [place], [place] [phone] Care Team Providers Care Veterinary Attendant Name Role Phone Kwame Diop Primary Care Provider Results Component Value Reference Range Notes Complete Blood Count Auto Di ff (Not yet reviewed by provider) Interpretation: Performing Lab:[facility], [address] [place] [address] Notes/Report: White Blood Count 10.1 4.8-10.8 X10*3/uL [...] NRBC Abs Auto 0.000 0.0-0.012 X10*3/uL Comprehensive Rose. Panel Fa st (Not yet reviewed by provider) Interpretation: Performing Lab:[address] [phone] Notes/Report: Sodium 141 135-145 mmol/L Potassium 4.3 [...] 3.5-5.0 g/dL Alkaline Phosphatase 84 39-117 U/L PSA,Total (Free>4and<10) (No t yet reviewed by provider) Interpretation: Performing Lab:[address] [phone] Notes/Report: PSA,Total (Free>4and<10) 2.49 0.00-4.00 ng/mL A [...] Microparticle Immunoassay (CMIA) Vitamin B12 and Folate (Not yet reviewed by provider) Interpretation: Performing Lab:[address] [address] Notes/Report: Vitamin B12 1287 200-900 pg/mL NORMAL 200-900 PG/ML INDETERMINATE 160-199 PG/ML DEFICIENT < 160 PG/ML Folate 14.1 > or = 4.0 ng/mL Reference Values: > or = 4.0 ng/mL < 4.0 ng/mL suggests folate deficiency Methotrexate, aminopterin and folinic acid (leucovorin) are chemotherapeutic agents whose molecular structures are similar to folate; therefore, the [employer] folate assay cannot be used for patients using these drugs. Microalbumin, Random (Not ye t reviewed by provider) Interpretation: Performing Lab:[facility], [address] [place] [phone] Notes/Report: Creatinine Urine 58.16 Microalbumin Urine 8.0 Microalbum/Creatinine Ratio Ur 13.7 <30 ug/mg cr Albumin/Creatinine Ratio Reference Ranges: Normal: < 30 ug/mg creatinine Microalbuminuria: 30 - 300 ug/mg creatinine Clinical Albuminuria: > 300 ug/mg creatinine Lipid Panel Reviewed date:06/12/2024 12:42:39 PM Interpretation: Performing Lab:[facility], [address] [place] [phone] Notes/Report: Triglycerides 114 <150 mg/dL Desirable Triglyceride: [...] low results in patients with liver disease. Hemoglobin A1c Reviewed date:06/12/2024 12:42:31 PM Interpretation: Performing Lab:[facility], [address] [place] [phone] Notes/Report: Hemoglobin A1c % 5.9 <6.0 % [...] average glucose, using the formula of the [id number] Average Glucose study (ADAG), Diabetes Care, Vol.31,#8, Nov. 2007 REASON FOR VISIT FASTING LABS Encounters Encounter Location Date Provider Diagnosis Kwame Diop MD [address] [place] [address] [address] [place], [place] [phone] 06/12/2024 Kwame Diop Blood tests for rout [...] hypercholesterolemia (ICD-10 - E78.00) Plan Of Treatment Pending Test Test Name Order Date Complete Blood Count Auto Diff Comprehensive Rose. Panel Fast PSA,Total (Free>4and<10) 06/12/2024 Vitamin B12 and Folate 06/12/2024 Microalbumin, Random 06/12/2024 UA ClnCatch+Micro w/rflx Cult 06/12/2024 Next Appt Details Provider Name:Kwame Roth ier, 06/20/2024 11:00:00 AM, [address], [address], [place], [place], [phone], Progress Notes * Darci ASENCIO RDOB:[birth year] (79 yo M)Acc No.[id number]:06/12/2024 Progress Note Patient:?Darci ASENCIO Provider:?Kwame Diop MD :1945???Age:79 Y???Sex:Male Miguel Ángel e:06/12/2024 Address:[address] [place], [place] [phone] Subjective: * Chief Complaints: * ???1. FASTING LABS. * Medical History:? Objective: * Vitals:? Assessment: * Assessment: 1.?Blood tests for routine g eneral physical examination - Z00.00 (Primary)???2.?Essential hypertension - I10???3.?Vitamin B 12 deficiency - E53.8???4.?Prediabetes - R73.09???5.?Pure hypercholesterolemia - E78.00??? Plan: * Treatment: 2.?Essential hypertension?LAB: Complete Blood Count Auto Diff (Collection Date & Time - 06/12/2024 08:15 AM) ?LAB: Comprehensive Rose. Panel Fast (Collection Date & Time - 06/12/2024 08:15 AM) ?LAB: PSA,Total (Free>4and<10) (Collection Date & Time - 06/12/2024 08:15 AM) ?LAB: Vitamin B12 and Folate (Collection Date & Time - 06/12/2024 08:15 AM) ?LAB: Microalbumin, Random (Collection Date & Time - 06/12/2024 08:15 AM) ?LAB: UA ClnCatch+Micro w/rflx Cult ?LAB: Lipid Panel (Collection Date & Time - 06/12/2024 08:15 AM) ?LAB: Hemoglobin A1c (Collection Date & Time - 06/12/2024 08:15 AM) 3.?Vitamin B 12 deficiency?LAB: Complete Blood Count Auto Diff (Collection Date & Time - 06/12/2024 08:15 AM) ?LAB: Comprehensive Rose. Panel Fast (Collection Date & Time - 06/12/2024 08:15 AM) ?LAB: PSA,Total (Free>4and<10) (Collection Date & Time - 06/12/2024 08:15 AM) ?LAB: Vitamin B12 and Folate (Collection Date & Time - 06/12/2024 08:15 AM) ?LAB: Microalbumin, Random (Collection Date & Time - 06/12/2024 08:15 AM) ?LAB: UA ClnCatch+Micro w/rflx Cult ?LAB: Lipid Panel (Collection Date & Time 06/12/2024 08:15 AM) ?LAB: Hemoglobin A1c (Collection Date & Time 06/12/2024 08:15 AM) 4.?Prediabetes?LAB: Complete Blood Count Auto Diff (Collection Date & Time 06/12/2024 08:15 AM) ?LAB: Comprehensive Rose. Panel Fast (Collection Date & Time 06/12/2024 08:15 AM) ?LAB: PSA,Total (Free>4and<10) (Collection Date & Time - 06/12/2024 08:15 AM) ?LAB: Vitamin B12 and Folate (Collection Date & Time 06/12/2024 08:15 AM) ?LAB: Microalbumin, Random (Collection Date & Time 06/12/2024 08:15 AM) ?LAB: UA ClnCatch+Micro w/rflx Cult ?LAB: Lipid Panel (Collection Date & Time 06/12/2024 08:15 AM) ?LAB: Hemoglobin A1c (Collection Date & Time 06/12/2024 08:15 AM) 5.?Pure hypercholesterolemia ?LAB: Complete Blood Count Auto Diff (Collection Date & Time - 06/12/2024 08:15 AM) ?LAB: Comprehensive Rose. Panel Fast (Collection Date & Time - 06/12/2024 08:15 AM) ?LAB: PSA,Total (Free>4and<10) (Collection Date & Time - 06/12/2024 08:15 AM) ?LAB: Vitamin B12 and Folate (Collection Date & Time - 06/12/2024 08:15 AM) ?LAB: Microalbumin, Random (Collection Date & Time - 06/12/2024 08:15 AM) ?LAB: UA ClnCatch+Micro w/rflx Cult ?LAB: Lipid Panel (Collection Date & Time - 06/12/2024 08:15 AM) ?LAB: Hemoglobin A1c (Collection Date & Time - 06/12/2024 08:15 AM) * Procedure Codes:?82639 VENIP UNCT, ROUTINE* * * The named appointment provid er may or may not be the originator of this progress note, and it is not deemed complete until electronically signed by the appointment provider. Sign off status: Pending * Provider:?Kwame Diop MD Date:?0 06/12/2024 Generated for Yael hdez/Sudheer/eTransmitting on:?06/12/2024 01:18 PM EST
--- OUTSIDE RECORDS SUMMARY | 2024-06-12 13:19 | XMS_ITS ---
Author Organization Kwame Diop MD Address [address] [place], [place] [phone] Care Team Providers Care Market Reporter Name Role Phone Kwame Diop Primary Care Provider [phone] Allergies No Known Allergies REASON FOR VISIT [...] Location Date Provider Diagnosis Kwame Diop MD [address] [facility] [address] [place] [phone] 04/28/2024 Kwame Diop Bronchitis J40 Assessments Encounter [...] for use Next Appt Details Provider Name:Kwame Roth ier, 06/20/2024 11:00:00 AM, [address] [place] [address], [place] [address], [place], [place], [phone], Progress Notes * Darci ASENCIO RDOB:[birth year] (79 yo M)Acc No.[id number]:04/28/2024 Patient:?UmeshkeithdandreDarci Provider:?Kwame Diop MD :1945???Age:79 Y???Sex:Male Miguel Ángel e:04/28/2024 Address:[address] [place], [place] [phone] Subjective: * Chief Complaints: * ???Congested, coughing x 3 d ays * HPI: ???Symptom(s):?Telehealth?Location of provider rendering services:?[address] [facility], Suite [facility],?Location of patient:?at address listed in demographics for today's visit,?Patient identification confirmed using:?Name, , SSN, Insurance information,?Telehealth method:?Telephone only. Patient not visible to care provider.,?Consent:?Patient verbally consented to treatment, Patient verbally consented to billing insurance company, Patient informed of any privacy concerns related to method of visit,?Total time spend talking with patient (minutes)?10.? 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 * ROS:?General/Constitutional:?Denies?Chills.?Denies?Fatigue.?Denies?Fever.?Denies?Headache.?ENT:?Patient denies?decreased sense of smell , any loss of taste , sore throat.?Denies?Sore throat.?Respiratory:?Admits?Cough.?Denies?Shortness of breath at rest.?Denies?Shortness of breath with exertion.?Admits?Sputum production.?Denies?Wheezing.?Gastrointestinal:?Denies?Diarrhea.?Denies?Nausea.?Musculoskeletal:?Patient denies?muscle aches.?Peripheral Vascular:?Patient denies?red and blue toes.? * Medical History:? * Surgical History:? * Hospitalization/Major Diagno stic Procedure:? * Medications:?TakingTylenol 3 25 MG Tablet 1 tablet as needed Orally [...] reviewed and reconciled with the patient * Allergies:?N.K.D.A.yes[Aller gies Verified] Objective: * Vitals:?Ht: 65.50 weight BP and temp not taken at home. Assessment: * Assessment: 1.?Bronchitis - J40 (Primary )? Plan: * Treatment: * Procedure Codes:? * * Sign off status: Completed true * Provider:?Kwame Diop MD Date:?0 04/28/2024 Generated for Yael hdez/Sudheer/Norbert on:?06/12/2024 01:18 PM EST History and Physical Notes * HPI (History of Present Illness) Category Sub-Category Detail Notes Category Not es Symptom(s) Telehealth Location of [facility] ider rendering services:: [address], [address] patient is a [...]
--- OUTSIDE RECORDS SUMMARY | 2024-06-12 13:19 | XMS_ITS ---
Author Organization Kwame Diop MD Address [address] [place] [phone] Care Team Providers Care Building Mechanic Name Role Phone Kwame Diop Primary Care Provider REASON FOR VISIT r foot gout, Video [phone] Medications Medication SIG (Take, Route, Frequency, Duration) Notes Start Date End Date Status amLODIPine Besylate 10 MG 1 tablet Orall y Once a day for 30 day(s) Not-Taking predniSONE 20 MG 2 tablets Orally Onc e a day for 5 days 03/06/2024 Active Indomethacin 50 MG 1 capsule with food Orally Three times a day 07/22/2015 Not-Taking Lisinopril 40 MG 1 tablet Orally Once a day Not-Taking Spironolactone 25 MG 1 tablet Orally for 30 day(s) Not-Taking Metoprolol Succinate ER 50 MG TAKE 1 TABLET BY MOUTH EVERY DAY Active amLODIPine Besylate 5 MG 2 tablet Orally Once a day 06/16/2022 Active Atorvastatin Calcium 20 MG TAKE 1 TABLET BY MOUTH EVERY DAY FOR 90 DAYS for 90 Active Aspirin 81 81 MG 1 tablet Orally Once a day Active Eliquis 5 MG as directed Orally Twice a day Active Vitamin B12 TR 1000 MCG 1 tablet Orally Once a day Active levETIRAcetam 500 MG 1 tablet Orally Twi ce a day Active Tylenol 325 MG 1 tablet as needed Orally every 6 hrs Active Folic Acid 800 MCG 1 tablet Orally Once a day Active Encounters Encounter Location Date Provider Diagnosis Kwame Diop MD [address] [place] [phone] 03/06/2024 Kwame Diop 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.072 Assessments Encounter Date Diagnosis (ICD Code) Assessment Notes Treatment Notes Treatment Clinical Notes Section Notes 03/06/2024 Acute idiopathic gout of left foot (ICD-10 - M10.072) can't take indocin due to the eliquis so will use prednisone, patient verbalized understandingof medication and directions for use Plan Of Treatment Medication Medication Name Sig Start Date Stop Date Notes predniSONE 20 MG 2 tablets Orally Once a day for 5 days Treatment Notes Assessment Notes Acute idiopathic gout of left foot can't take indocin due to the eliquis so will use prednisone, patient verbalized understandingof medication and directions for use Next Appt Details Provider Name:Kwame Roth ier, 06/20/2024 11:00:00 AM, [address] [place] [address], [address], [place], [place], [phone], Progress Notes * Darci ASENCIO RDOB:[birth year] (78 yo M)Acc No.[id number]:03/06/2024 Patient:?UmeshkeithdandreDarci R Provider:?Kwame Diop MD :1945???Age:78 Y???Sex:Male Miguel Ángel e:03/06/2024 Address:[address] [place], [place] [phone] Subjective: * Chief Complaints: * ???R foot goutVideo [phone] * HPI: ???Symptom(s):?Telehealth?Location of provider rendering services:?[address] [place] [address], Suite [facility],?Location of patient:?at address listed in demographics for today's visit,?Patient identification confirmed using:?Name, ,?Telehealth method:?Telephone only. Patient not visible to care provider.,?Consent:?Patient verbally consented to treatment, Patient verbally consented to billing insurance company, Patient informed of any privacy concerns related to method of visit,?Total time spend talking with patient (minutes)?0.? patient is a 78 yo male video telehealth visit with complaint of gout for 4 days. complaining of pain in right foot. * ROS:?General/Constitutional:?Patient denies?chills, fatigue, fever, headache.?ENT:?Patient denies?decreased sense of smell, any loss of taste, sore throat.?Musculoskeletal:?Patient denies?muscle aches.?Peripheral Vascular:?Patient denies?red and blue toes.? [...] BY MOUTH EVERY DAY FOR 90 DAYS Aspirin 81 81 MG Tablet Delayed Release 1 tablet Orally Once a dayMetoprolol Succinate ER 50 MG Tablet Extended Release [...] MOUTH EVERY DAY FOR 90 DAYS Taking Aspirin 81 81 MG Tablet Delayed Release 1 tablet Orally Once a dayTaking Metoprolol Succinate ER 50 MG Tablet Extended Release 24 Hour TAKE 1 TABLET BY MOUTH EVERY DAY Taking amLODIPine Besylate 5 MG Tablet 2 tablet Orally Once a dayNot-Taking/PRNLisinopril 40 MG Tablet 1 tablet Orally Once a daySpironolactone 25 MG Tablet 1 tablet Orally amLODIPine Besylate 10 MG Tablet 1 tablet Orally Once a dayIndomethacin 50 MG Capsule 1 capsule with food Orally Three times a dayNot-Taking/PRN Lisinopril 40 MG Tablet 1 tablet Orally Once a dayNot- Taking/PRN Spironolactone 25 MG Tablet 1 tablet Orally Not-Taking/PRN amLODIPine Besylate 10 MG Tablet 1 tablet Orally Once a dayNot-Taking/PRN Indomethacin 50 MG Capsule 1 capsule with food Orally Three times a day Objective: Assessment: * Assessment: 1.?Acute idiopathic gout of left foot - M10.072 (Primary)? Plan: * Treatment: * Procedure Codes:? * * Sign off status: Completed true * Provider:?Kwame Diop MD Date:?1 05/06/2023 Generated for Yael hdez/Sudheer/eTransmitting on:?06/12/2024 01:19 PM EST History and Physical Notes * HPI (History of Present Illness) Category Sub-Category Detail Notes Category Not es Symptom(s) Telehealth Location of [facility] rendering services:: [address], [address] patient is a 78 yo male video telehealth visit with complaint of gout for 4 days. complaining of pain in right foot. Location of patient:: at address listed in demographics for today's visit Patient identification confirmed using:: Name, Telehealth method:: Telephone only. Bren ent not visible to care provider. Consent:: Patient verbally c onsented to treatment, Patient verbally consented to billing insurance company, Patient informed of any privacy concerns related to method of visit Total time spend talking with patient (m inutes): 0
[2024-06-12 13:36] LABS: Appearance Urine Clear; Color Urine Yellow; Glucose Urine UA Negative (Negative); Leukocyte Esterase Urine Negative (Negative); Nitrite Urine Negative (Negative); Specific Gravity - Urine 1.015 (1.005-1.025); Urine Blood Negative (Negative); Urine Ketones Negative (Negative); Urine Protein Negative (Neg-Trace)
== END 2024-06-12 11:01 | disposition home or self-care (01) ==
LOC: HO.LNP 11:00
PROVIDERS: Visit Provider Internal Medicine
DX: Z00.00 Encounter for general adult medical examination without abnormal findings (principal); I10 Essential (primary) hypertension; E53.8 Deficiency of other specified B group vitamins; R73.09 Other abnormal glucose; E78.00 Pure hypercholesterolemia, unspecified; Z12.5 Encounter for screening for malignant neoplasm of prostate
CPT/HCPCS: 80053; 80061; 81001; 82043; 82570; 82607; 82746; 83036; 84153; 85025

== ENCOUNTER 2024-06-30 10:54 | Outpatient (REF) | payer MEDICARE, SELFPAY ==
[2024-06-30 11:41] LABS: PSA,Total (Free>4and<10) 2.52 ng/mL (0.00-4.00)
== END 2024-06-30 10:55 | disposition home or self-care (01) ==
LOC: HO.LNP 10:54
PROVIDERS: Visit Provider Internal Medicine
DX: R97.20 Elevated prostate specific antigen [PSA] (principal); Z12.5 Encounter for screening for malignant neoplasm of prostate
CPT/HCPCS: 84153

== ENCOUNTER 2024-09-15 13:21 | Outpatient (AMB) | payer MEDICARE, SELFPAY ==
--- NOTE | 2024-09-15 13:25 | A.OFFVIS_ITS ---
Vital Signs 09/15/24 13:27 Height 5 ft 9 in Weight 147 lb 11.355 oz BMI 21.8 BP 116/68 Blood Pressure Location Lt brachial Position Sitting Pulse 73 Pulse Source Monitor Intake Visit Reasons: r/s 09/04/24 1 yr followup w/ekg Allergies No Known Allergies [No Known Allergies*] Allergy (Verified 04/03/24 10:43) Medication List - Last Reconciled 09/15/24 by Burke Felix MD acetaminophen (Tylenol) 650 mg PO Q6H PRN amlodipine 10 mg (2 x 5 mg) PO DAILY 90 days apixaban (Eliquis) 5 mg PO BID atorvastatin 20 mg PO DAILY cyanocobalamin (vitamin B-12) 1,000 mcg PO DAILY levetiracetam 500 mg PO BID metoprolol succinate ER 50 mg PO DAILY HPI Comments Details: Darci returns for follow-up regarding atrial fibrillation as well as cardiomyopathy. In 2023, it seems that he was admitted to the hospital with a stroke. However, he recovered completely. Suspect it is from intracranial disease than atrial fibrillation. Otherwise, no new concerns. From cardiac, he is doing well. [facility] Medical History Complex partial seizure Dementia Persistent atrial fibrillation Cardiomyopathy Essential hypertension Alcohol abuse Surgical History H/O excision of mass (~11/02/23) H/O colonoscopy Hx of cardiac catheterization History of tonsillectomy History of appendectomy Family History Father No problems noted. Mother No problems noted. Social History Household Members: Spouse and Family Housing: House Are you a primary behavioral health care coordinator to a significant other at home: No Do you presently have visiting nurse or other home services: No Alcohol intake: former Patient Tobacco Use Status: Never used Tobacco Advance Directives Date on File: 11/28/21 service: No Review of Systems Const Denies weakness ENT Denies dizziness Card Denies chest pain, Denies chest pain with activity, Denies syncope, Denies rapid heart rate, Denies pedal edema, Denies edema, Denies leg edema, Denies lightheadedness, Denies palpitations, Denies dyspnea, Denies dyspnea on exertion and Denies orthopnea Resp Denies cough, Denies dyspnea and Denies dyspnea on exertion GI Denies hematochezia and Denies change in stool character Musc Denies abnormal gait, Denies muscle cramps, Denies muscle weakness, Denies numbness, Denies radiating pain into limb and Denies tingling Neuro Denies abnormal gait, Denies dizziness, Denies syncope, Denies numbness, Denies tingling and Denies weakness Endo Denies palpitations Physical Exam Vital Signs: Last Vital Signs Pulse 73 09/15/24 13:27 BP 116/68 09/15/24 13:27 BMI result Body Mass Index 21.8 Const General: comfortable and no acute distress Orientation/consciousness: patient oriented x3 HEENT Other: Unremarkable Head: Yes normal to inspection Neck Neck: Yes normal visual inspection Chest Chest palpation & inspection: normal inspection of the chest Resp Auscultation: clear to auscultation bilaterally Cardio Palpation: normal PMI Heart sounds: S1 normal heart sound present, S2 normal heart sound present, no gallops, no murmurs and no rubs GI Palpation (GI): Soft to palpation Back/Spine/Pelvis Other: unremarkable Skin General skin exam: no rashes or lesions noted Neuro General: patient oriented x3 Extrem General: Yes normal to inspection Psych Mental Status: mental status grossly normal Office Procedures EKG Details: EKG with atrial fibrillation at a rate of 73/Min; PVC versus aberrant conduction; cannot exclude old septal infarct. 81811-Jiueiiqkendanflkx, Complete Assessment & Plan Assessment & Plan (1) Persistent atrial fibrillation: Code(s): I48.19 - Other persistent atrial fibrillation Category: Medical Plan: Continue beta-blockers and anticoagulation. (2) Stroke: Code(s): I63.9 - Cerebral infarction, unspecified Category: Medical Plan: In the CTA, encephalomalacia right occipital lobe; chronic infarct in the right thalamus; moderate microangiopathy, global cerebral volume loss; age indeterminate occlusion of P2/distal FLOOR WINDER. No significant stenosis in the carotids or vertebrals. MRI with acute infarcts in the right FLOOR WINDER territory. Overall, suspect it is all due to intracranial vascular disease and not embolic. (3) Cardiomyopathy: Comment: follows with [facility] Code(s): I42.9 - Cardiomyopathy, unspecified Category: Medical Plan: In the most recent echocardiogram, LVEF is 50-55%. Prior to that, LVEF 35-40%. In the cardiac catheterization, no significant CAD. Clinically, no heart failure symptoms or signs. Continue beta-blockers. Due to low blood pressure issues as well as hyperkalemia, not on lisinopril. Not on spironolactone for the same reason. (4) Essential hypertension: Code(s): I10 - Essential (primary) hypertension Category: Medical Plan: Stable. No changes. (5) Alcohol abuse: Code(s): F10.10 - Alcohol abuse, uncomplicated Category: Social Hx Plan: No longer drinking. Plan Discussion Notes During the consultation, there was reassurance concerning the patient's progress with recovery from his cerebrovascular event. The patient and I discussed the ongoing necessity of maintaining the blood thinner regimen to prevent further incidents, with particular emphasis on not interrupting this medication without medical advice. Abstinence from alcohol was positively acknowledged, and the patient was encouraged to maintain this lifestyle. We reviewed past lab results from May, indicating stable kidney and cholesterol profiles, and agreed that no changes to his current treatment plan are required. Follow-up is recommended on a periodic basis unless new issues arise. Patient was informed and verbally consented to the use of an ambient scribe for clinic note documentation during this visit. Patient Instructions: - Continue prescribed medications as directed. - Maintain current abstinence from alcohol. - Report any new or worsening symptoms promptly. - Routine follow-up will be scheduled as planned or as needed. - Engage in daily activities within tolerance limits, avoiding overexertion. Coding Level of Care Code Est Pt Level 4 (82940) Complex EM visit Add On G2211 Diagnoses Persistent atrial fibrillation I48.19 Stroke I63.9 Cardiomyopathy I42.9 Essential hypertension I10 Alcohol abuse F10.10 CPT Codes EKG - CPT: 73591-Fojstnxeapxxogjsy, Complete ([id number])
[2024-09-15 13:27] VITALS: BP 116/68; PULSE 73; BMI 21.8
--- OUTSIDE RECORDS SUMMARY | 2024-09-15 14:26 | XMS_ITS ---
Author Organization Kwame Diop MD Address [address] [place], [place] [id number] Care Team Providers Care Medication Specialist Name Role Phone Kwame Diop Primary Care Provider Results Component Value Reference Range Notes Complete Blood Count Auto Di ff Reviewed date:06/13/2024 04:40:43 PM Interpretation: Performing Lab:[facility], [address] [place] [phone] Notes/Report: White Blood Count 10.1 4.8-10.8 X10*3/uL [...] NRBC Abs Auto 0.000 0.0-0.012 X10*3/uL Comprehensive Sandy Level. Panel Fa st Reviewed date:06/13/2024 04:43:55 PM Interpretation: Performing Lab:[facility], [address] [place] [address] Notes/Report: Sodium 141 135-145 mmol/L Potassium 4.3 [...] Panel Reviewed date:06/12/2024 12:42:39 PM Interpretation: Performing Lab:[facility], [address] [place] [phone] Notes/Report: Triglycerides 114 <150 mg/dL Desirable Triglyceride: [...] (Free>4and<10) Reviewed date:06/16/2024 09:29:37 AM Interpretation: Performing Lab:[address] [phone] Notes/Report: PSA,Total (Free>4and<10) 2.49 0.00-4.00 ng/mL A [...] Folate Reviewed date:06/12/2024 04:35:20 PM Interpretation: Performing Lab:[facility], [address] [place] [phone] Notes/Report: Vitamin B12 1287 200-900 pg/mL NORMAL 200-900 PG/ML INDETERMINATE 160-199 PG/ML DEFICIENT < 160 PG/ML Folate 14.1 > or = 4.0 ng/mL Reference Values: > or = 4.0 ng/mL < 4.0 ng/mL suggests folate deficiency Methotrexate, aminopterin and folinic acid (leucovorin) are chemotherapeutic agents whose molecular structures are similar to folate; therefore, the Software Sales Representative folate assay cannot be used for patients using these drugs. Microalbumin, Random Reviewed date:06/12/2024 04:34:17 PM Interpretation: Performing Lab:[address] [phone] Notes/Report: Creatinine Urine 58.16 Microalbumin Urine 8.0 Microalbum/Creatinine Ratio Ur 13.7 <30 ug/mg cr Albumin/Creatinine Ratio Reference Ranges: Normal: < 30 ug/mg creatinine Microalbuminuria: 30 - 300 ug/mg creatinine Clinical Albuminuria: > 300 ug/mg creatinine Hemoglobin A1c Reviewed date:06/12/2024 12:42:31 PM Interpretation: Performing Lab:[facility], [address] [place] [phone] Notes/Report: Hemoglobin A1c % 5.9 <6.0 % [...] average glucose, using the formula of the N5U-Culuved Average Glucose study (ADAG), Diabetes Care, Vol.31,#8, Nov. 2007 UA ClnCatch+Micro w/rflx Cul t Reviewed date:06/13/2024 04:40:26 PM Interpretation: Performing Lab:[facility], [address] [place] [phone] Notes/Report: Urine, Clean Catch Color Urine Yellow Appearance Urine Clear PH 7.0 5.0-9.0 Glucose Urine UA Negative Negative mg/dL Urine Blood Negative Negative Specific [place] - Urine 1.015 1.005-1.025 Urine Protein Negative [...] Location Date Provider Diagnosis Kwame Diop MD [address] [place] [address] Drive [address] [place], [place] [phone] 06/12/2024 Kwame Diop Blood tests for rout [...] Of Treatment Next Appt Details Provider Name:Kwame wagnerr, 01/19/2025 07:15:00 AM, [address] [place] [address], Suite [facility], [place], [place], [phone], Provider Name:Kwame nobles, 01/27/2025 10:15:00 AM, [address] [place] [address], [address] [facility], [place], [place], [phone], Provider Name:Kwame nobles, 07/16/2025 08:00:00 AM, [address] [place] [address] Drive, [address], [place], [place], [phone], Provider Name:Kwame wagnerr, 07/24/2025 11:00:00 AM, [address] [place] [address] Drive, Suite [facility], [place], [place], [phone], Progress Notes * Darci ASENCIO RDOB:[birth year] (79 yo M)Acc No.[id number]:06/12/2024 Progress Note Patient:?FRANCIEJYOTIDarci R Provider:?Kwame Diop MD :1945???Age:79 Y???Sex:Male Miguel Ángel e:06/12/2024 Address:[address] [place], [place] [id number] Subjective: * Chief Complaints: * ???1. FASTING LABS. * Medical History:? Objective: * Vitals:? Assessment: * Assessment: 1.?Blood tests for routine g eneral physical examination - Z00.00 (Primary)???2.?Essential hypertension - I10???3.?Vitamin B 12 deficiency - E53.8???4.?Prediabetes - R73.09???5.?Pure hypercholesterolemia - E78.00??? Plan: * Treatment: 2.?Essential hypertension?LAB: Complete Blood Count Auto Diff (Collection Date & Time - 06/12/2024 08:15 AM) ?LAB: Comprehensive [place] Level. Panel Fast (Collection Date & Time - 06/12/2024 08:15 AM) ?LAB: Lipid Panel (Collection Date & Time - 06/12/2024 08:15 AM) ?LAB: PSA,Total (Free>4and<10) (Collection Date & Time - 06/12/2024 08:15 AM) ?LAB: Vitamin B12 and Folate (Collection Date & Time - 06/12/2024 08:15 AM) ?LAB: Microalbumin, Random (Collection Date & Time - 06/12/2024 08:15 AM) ?LAB: Hemoglobin A1c (Collection Date & Time 06/12/2024 08:15 AM) ?LAB: UA ClnCatch+Micro w/rflx Cult (Collection Date & Time - 06/12/2024 08:15 AM) 3.?Vitamin B 12 deficiency?LAB: Complete Blood Count Auto Diff (Collection Date & Time - 06/12/2024 08:15 AM) ?LAB: Comprehensive [place] Level. Panel Fast (Collection Date & Time - 06/12/2024 08:15 AM) ?LAB: Lipid Panel (Collection Date & Time - 06/12/2024 08:15 AM) ?LAB: PSA,Total (Free>4and<10) (Collection Date & Time - 06/12/2024 08:15 AM) ?LAB: Vitamin B12 and Folate (Collection Date & Time - 06/12/2024 08:15 AM) ?LAB: Microalbumin, Random (Collection Date & Time - 06/12/2024 08:15 AM) ?LAB: Hemoglobin A1c (Collection Date & Time - 06/12/2024 08:15 AM) ?LAB: UA ClnCatch+Micro w/rflx Cult (Collection Date & Time - 06/12/2024 08:15 AM) 4.?Prediabetes?LAB: Complete Blood Count Auto Diff (Collection Date & Time - 06/12/2024 08:15 AM) ?LAB: Comprehensive [place] Level. Panel Fast (Collection Date & Time - 06/12/2024 08:15 AM) ?LAB: Lipid Panel (Collection Date & Time - 06/12/2024 08:15 AM) ?LAB: PSA,Total (Free>4and<10) (Collection Date & Time - 06/12/2024 08:15 AM) ?LAB: Vitamin B12 and Folate (Collection Date & Time - 06/12/2024 08:15 AM) ?LAB: Microalbumin, Random (Collection Date & Time - 06/12/2024 08:15 AM) ?LAB: Hemoglobin A1c (Collection Date & Time - 06/12/2024 08:15 AM) ?LAB: UA ClnCatch+Micro w/rflx Cult (Collection Date & Time - 06/12/2024 08:15 AM) 5.?Pure hypercholesterolemia ?LAB: Complete Blood Count Auto Diff (Collection Date & Time - 06/12/2024 08:15 AM) ?LAB: Comprehensive [place] Level. Panel Fast (Collection Date & Time - 06/12/2024 08:15 AM) ?LAB: Lipid Panel (Collection Date & Time - 06/12/2024 08:15 AM) ?LAB: PSA,Total (Free>4and<10) (Collection Date & Time - 06/12/2024 08:15 AM) ?LAB: Vitamin B12 and Folate (Collection Date & Time - 06/12/2024 08:15 AM) ?LAB: Microalbumin, Random (Collection Date & Time - 06/12/2024 08:15 AM) ?LAB: Hemoglobin A1c (Collection Date & Time - 06/12/2024 08:15 AM) ?LAB: UA ClnCatch+Micro w/rflx Cult (Collection Date & Time - 06/12/2024 08:15 AM) * Procedure Codes:?50722 VENIP UNCT, ROUTINE* * * The named appointment provid er may or may not be the originator of this progress note, and it is not deemed complete until electronically signed by the appointment provider. Sign off status: Pending * Provider:?Kwame Diop MD Date:?0 06/12/2024 Generated for Yael hdez/Sudheer/Barryitting on:?09/15/2024 02:26 PM EDT
== END 2024-09-15 13:43 | disposition home or self-care (01) ==
LOC: HO.HCS 13:22
PROVIDERS: PCP Internal Medicine; Visit Provider Internal Medicine
DX: I48.19 Other persistent atrial fibrillation (principal); I63.9 Cerebral infarction, unspecified; I42.9 Cardiomyopathy, unspecified; I10 Essential (primary) hypertension; F10.10 Alcohol abuse, uncomplicated
CPT/HCPCS: 93010; 99214; G2211

== ENCOUNTER → 2024-09-15 13:21 | Outpatient (BNVA) | payer MEDICARE, SELFPAY | PROVIDERS: PCP Internal Medicine; Visit Provider Internal Medicine | DX: I48.19 Other persistent atrial fibrillation (principal); I42.9 Cardiomyopathy, unspecified; I10 Essential (primary) hypertension; F10.10 Alcohol abuse, uncomplicated; Z86.73 Personal history of transient ischemic attack (TIA), and cerebral infarction without residual deficits | CPT/HCPCS: 93005; 99212 ==

== ENCOUNTER 2025-01-19 10:38 | Outpatient (REF) | payer MEDICARE, SELFPAY ==
--- OUTSIDE RECORDS SUMMARY | 2024-04-28 10:00 | XMS_ITS ---
Author Organization Kwame Diop MD Address [address] [place], [place] [id number] Care Team Providers Care Rehab Aid Name Role Phone Kwame Diop Primary Care Provider Allergies No Known Allergies REASON FOR VISIT congested, coughing x 3 days Medications Medication SIG (Take, Route, Frequency, Duration) Notes Start Date End Date Status Eliquis 5 MG as directed Orally Twice a day Active Atorvastatin Calcium 20 MG TAKE 1 TABLET BY MOUTH EVERY DAY FOR 90 DAYS for 90 Active Metoprolol Succinate ER 50 MG TAKE 1 TABLET BY MOUTH EVERY DAY Active amLODIPine Besylate 5 MG 2 tablet Orally Once a day 06/16/2022 Active levETIRAcetam 500 MG 1 tablet Orally Twi ce a day Active Tylenol 325 MG 1 tablet as needed Orally every 6 hrs Active Folic Acid 800 MCG 1 tablet Orally Once a day Active Vitamin B12 TR 1000 MCG 1 tablet Orally Once a day Active Indomethacin 50 MG 1 capsule with food Orally Three times a day 07/22/2015 Not-Taking Lisinopril 40 MG 1 tablet Orally Once a day Not-Taking Spironolactone 25 MG 1 tablet Orally for 30 day(s) Not-Taking amLODIPine Besylate 10 MG 1 tablet Orall y Once a day for 30 day(s) Not-Taking Zithromax Z-Herman 250 MG 2 tablet on the irst day, then 1 tablet daily for 4 days Orally Once a day for 5 day(s) 04/28/2024 Active predniSONE 10 MG 1 tablet with food o r milk Orally 4 tabs for 3 days,3tabs for 3 days, 2 tabs for 3 days, and 1 tab for 3 days for 14 days 04/28/2024 Active predniSONE 20 MG 2 tablets Orally Onc e a day for 5 days 03/06/2024 Not-Taking Vital Signs Height 65.50 in 04/28/2024 weight BP and temp not taken at home Encounters Encounter Location Date Provider Diagnosis Kwame Diop MD [address] [place] [phone] 04/28/2024 Kwame Diop Bronchitis J40 Assessments Encounter Date Diagnosis (ICD Code) Assessment Notes Treatment Notes Treatment Clinical Notes Section Notes 04/28/2024 Bronchitis (ICD-10 - J40) patient verbalized understanding ofmedication and directions for use Plan Of Treatment Medication Medication Name Sig Start Date Stop Date Notes Zithromax Z-Herman 250 MG 2 tablet on the f irst day, then 1 tablet daily for 4 days Orally Once a day for 5 day(s) 04/28/2024 predniSONE 10 MG 1 tablet with food o r milk Orally 4 tabs for 3 days,3tabs for 3 days, 2 tabs for 3 days, and 1 tab for 3 days for 14 days 04/28/2024 Treatment Notes Assessment Notes Bronchitis patient verbalized u nderstanding ofmedication and directions for use Next Appt Details Provider Name:Kwame nobles, 01/27/2025 10:15:00 AM, [address] [place] [address], [address], [phone], Provider Name:Kwame nobles, 07/16/2025 08:00:00 AM, [address] [place] [address], [address], [phone], Provider Name:Kwame nobles, 07/24/2025 11:00:00 AM, [address] [place] [address], [address], [phone], Progress Notes * Darci PAEZ RDOB:[birth year] (79 yo M)Acc No.[id number]:04/28/2024 Patient: Darci Jackson Provider: Rojas Diop MD :1945 A ge:79 Y S ex:Male Date:04/28/2024 Address:[address] [place], [place] [phone] Subjective: * Chief Complaints: * C ongested, coughing x 3 days * HPI: S ymptom(s): Telehealth L ocation of provider rendering services: [address], [address], L ocation of patient: a t address listed in demographics for today's visit, P atalexandrea identification confirmed using: N sepideh, , SSN, Insurance information, T elehealth method: T elephone only. Patient not visible to care provider., C onsent: P atient verbally consented to treatment, Patient verbally consented to billing insurance company, Patient informed of any privacy concerns related to method of visit, T otal time spend talking with patient (minutes) 1 0. 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 * ROS: G eneral/Constitutional: Denies C hills. D enies F atigue. D enies F ever. D enies H eadache. E NT: Patient denies d ecreased sense of smell , any loss of taste , sore throat. D enies S ore throat. R espiratory: Admits C ough. D enies S hortness of breath at rest. D enies S hortness of breath with exertion. A dmits S putum production. D enies W heezing. G astrointestinal: Denies D iarrhea. D enies N ausea. M usculoskeletal: Patient denies m uscle aches. P eripheral Vascular: Patient denies r ed and blue toes. * Medical History: * Surgical History: * Hospitalization/Major Diagno stic Procedure: * Medications: T akingTylenol 325 MG Tablet 1 tablet as needed Orally every 6 hrsFolic Acid 800 MCG Tablet 1 tablet Orally Once a dayVitamin B12 TR 1000 MCG Tablet Extended Release 1 tablet Orally Once a daylevETIRAcetam 500 MG Tablet 1 tablet Orally Twice a dayEliquis 5 MG Tablet as directed Orally Twice a dayAtorvastatin Calcium 20 MG Tablet TAKE 1 TABLET BY MOUTH EVERY DAY FOR 90 DAYS Metoprolol Succinate ER 50 MG Tablet Extended Release 24 Hour TAKE 1 TABLET BY MOUTH EVERY DAY amLODIPine Besylate 5 MG Tablet 2 tablet Orally Once a dayTaking Tylenol 325 MG Tablet 1 tablet as needed Orally every 6 hrsTaking Folic Acid 800 MCG Tablet 1 tablet Orally Once a dayTaking Vitamin B12 TR 1000 MCG Tablet Extended Release 1 tablet Orally Once a dayTaking levETIRAcetam 500 MG Tablet 1 tablet Orally Twice a dayTaking Eliquis 5 MG Tablet as directed Orally Twice a dayTaking Atorvastatin Calcium 20 MG Tablet TAKE 1 TABLET BY MOUTH EVERY DAY FOR 90 DAYS Taking Metoprolol Succinate ER 50 MG Tablet Extended Release 24 Hour TAKE 1 TABLET BY MOUTH EVERY DAY Taking amLODIPine Besylate 5 MG Tablet 2 tablet Orally Once a dayNot-Taking/PRNpredniSONE 20 MG Tablet 2 tablets Orally Once a dayLisinopril 40 MG Tablet 1 tablet Orally Once a daySpironolactone 25 MG Tablet 1 tablet Orally amLODIPine Besylate 10 MG Tablet 1 tablet Orally Once a dayIndomethacin 50 MG Capsule 1 capsule with food Orally Three times a dayNot-Taking/PRN predniSONE 20 MG Tablet 2 tablets Orally Once a dayNot- Taking/PRN Lisinopril 40 MG Tablet 1 tablet Orally Once a dayNot-Taking/PRN Spironolactone 25 MG Tablet 1 tablet Orally Not-Taking/PRN amLODIPine Besylate 10 MG Tablet 1 tablet Orally Once a dayNot-Taking/PRN Indomethacin 50 MG Capsule 1 capsule with food Orally Three times a dayDiscontinuedAspirin 81 81 MG Tablet Delayed Release 1 tablet Orally Once a dayMedication List reviewed and reconciled with the patientDiscontinued Aspirin 81 81 MG Tablet Delayed Release 1 tablet Orally Once a dayMedication List reviewed and reconciled with the patient * Allergies: N .K.D.A.yes[Allergies Verified] Objective: * Vitals: H t: 65.50 weight BP and temp not taken at home. Assessment: * Assessment: [facility]. [facility] ([facility]) Plan: * Treatment: * Procedure Codes: * * Sign off status: Completed true * Provider: Rojas Diop MD Date: 0 04/28/2024 Generated for Yael hdez/Sudheer/Norbert on: 12:39 PM EDT History and Physical Notes * HPI (History of Present Illness) Category Sub-Category Detail Notes Category Not es Symptom(s) Telehealth Location of 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 Bren ent not visible to care provider. Consent:: Patient verbally c onsented to treatment, Patient verbally consented to billing insurance company, Patient informed of any privacy concerns related to method of visit Total time spend talking with patient (m inutes): 10
--- OUTSIDE RECORDS SUMMARY | 2024-06-12 04:15 | XMS_ITS ---
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, [address] [place] [phone] Notes/Report: White Blood Count 10.1 4.8-10.8 X10*3/uL Red Blood Count 5.15 4.60-5.80 X10*6/uL Hemoglobin 16.4 14.0-18.0 g/dl Hematocrit 48.3 42.0-52.0 % Mean Corpuscular Volume 93.8 80.0-98.0 fL Mean Corpuscular Hemoglobin 31.8 27.0-33.0 pg Mean Corpuscular HGB Conc 34.0 31.0-36.0 g/dl Red Cell Distribution Width 13.8 11.0-16.0 % Platelet Count 209 160-400 X10*3/uL Mean Platelet Volume 9.7 9.4-12.4 fL Neutrophils Percent Auto 46.0 45-73 % Imm Gran Pct Auto 0.9 0.0-0.4 % Lymphocytes Percent Auto 39.2 20-40 % Monocytes Percent Auto 10.9 2-11 % Eosinophils Percent Auto 1.9 0-4 % Basophils Percent Auto 1.1 0-2 % NRBC Pct Auto 0.0 0.0-0.2 /100WBC Neutrophils Absolute Auto 4.6 2.0-8.3 x10*3/u L Imm Gran Abs Auto 0.09 0.00-0.03 X10*3/uL Lymphocytes Absolute Auto 4.0 1.2-4.9 X10*3/u L Monocytes Absolute Auto 1.1 0.1-1.2 X10*3/uL Eosinophils Absolute Auto 0.2 0.0-0.4 X10*3/u L Basophils Absolute Auto 0.1 0.0-0.2 X10*3/uL NRBC Abs Auto 0.000 0.0-0.012 X10*3/uL Comprehensive Howell. Panel Fa st Reviewed date:06/13/2024 04:43:55 PM Interpretation: Performing Lab:[facility], [address] [place] [phone] Notes/Report: Sodium 141 135-145 mmol/L Potassium 4.3 3.3-5.1 mmol/L Chloride 107 96-108 mmol/L Carbon Dioxide 27 22-29 mmol/L Anion Gap 11 12-20 Blood Urea Nitrogen 8 9-16 mg/dL Creatinine 1.02 0.5-1.4 mg/dL Estimated Glomerular Filt Rate > 60 Chronic Kidney Disease: Estimated GFR < 60 mL/min/1.73m2 Severe Kidney Disease: Estimated GFR < 15 mL/min/1.73m2 Glucose Fasting 94 60-99 mg/dL Calcium 8.9 8.4-10.2 mg/dL Bilirubin Total 1.2 0.0-1.0 mg/dL Aspartate Amino Transferase 31 5-37 U/L Alanine Aminotransferase 18 0-40 U/L Total Protein 6.4 6.5-8.0 g/dL Albumin Level 3.9 3.5-5.0 g/dL Alkaline Phosphatase 84 39-117 U/L Lipid Panel Reviewed date:06/12/2024 12:42:39 PM Interpretation: Performing Lab:[facility], [address] [place] [phone] Notes/Report: Triglycerides 114 <150 mg/dL Desirable Triglyceride: less than 150 mg/dL Borderline High Triglyceride 150-199 mg/dL High Triglyceride: 200-499 mg/dL Very High Triglyceride: greater than or equal to 5OO mg/dL Cholesterol 161 <200 mg/dL Desirable Cholesterol: less than 200 mg/dL Borderline High Cholesterol: 200-239 mg/dL High Cholesterol: greater than 239 mg/dL LDL Cholesterol Calculated 90 <100 mg/dL Desirable LDL: less than 100 mg/dL Near Optimal/Above Optimal LDL: 110-129 mg/dL Borderline High LDL: 130-159 mg/dL High LDL: 160-189 mg/dL Very High LDL: greater than or equal to 190 mg/dL HDL Cholesterol 49 >40 mg/dL Desirable HDL: greater than 40 mg/dL Note: This HDL assay may give artificially low results in patients with liver disease. PSA,Total (Free>4and<10) Reviewed date:06/16/2024 09:29:37 AM Interpretation: Performing Lab:[address] [phone] Notes/Report: PSA,Total (Free>4and<10) 2.49 0.00-4.00 ng/mL A Free PSA was not performed: The percentage of Free PSA can be used to enhance the differentiation of prostate cancer from benign prostatic disease in subjects whose PSA levels are between 4.0 and 10.0 ng/mL. For subjects whose PSA levels are below 4.0 or above 10.0 ng/mL, the risk of prostate cancer is determined on the basis of the PSA alone. Therefore the % Free PSA is recommended only for those subjects whose PSA levels are between 4.0 and 10.0 ng/mL. PSA methodology: Gonzales Alinity i Chemiluminescent Microparticle Immunoassay (CMIA) Vitamin B12 and Folate Reviewed date:06/12/2024 04:35:20 PM Interpretation: Performing Lab:[facility], [address] [place] [phone] Notes/Report: Vitamin B12 1287 200-900 pg/mL NORMAL 200-900 PG/ML INDETERMINATE 160-199 PG/ML DEFICIENT < 160 PG/ML Folate 14.1 > or = 4.0 ng/mL Reference Values: > or = 4.0 ng/mL < 4.0 ng/mL suggests folate deficiency Methotrexate, aminopterin and folinic acid (leucovorin) are chemotherapeutic agents whose molecular structures are similar to folate; therefore, the Fabric Sourcer folate assay cannot be used for patients using these drugs. Microalbumin, Random Reviewed date:06/12/2024 04:34:17 PM Interpretation: Performing Lab:[address] [phone] Notes/Report: Creatinine Urine 58.16 Microalbumin Urine 8.0 Microalbum/Creatinine Ratio Ur 13.7 <30 ug/mg cr Albumin/Creatinine Ratio Reference Ranges: Normal: < 30 ug/mg creatinine Microalbuminuria: 30 - 300 ug/mg creatinine Clinical Albuminuria: > 300 ug/mg creatinine Hemoglobin A1c Reviewed date:06/12/2024 12:42:31 PM Interpretation: Performing Lab:[facility], [address] [place] [phone] Notes/Report: Hemoglobin A1c % 5.9 <6.0 % Hemoglobin A1C Reference Range Adults: 4.8 - 6.0 % Non diabetic: < 6.0 % Goal: < 7.0 % Additional Action Suggested: > 8.0 % Note: Hemoglobin A1c results are invalid for patients with abnormal amounts of HbF. Blood transfusions may impact the HbA1c concentration in the patient sample. Estimated Average Glucose 123 eAG = Estimated average glucose which is %A1C expressed as average glucose, using the formula of the W6C-Wslxinu Average Glucose study (ADAG), Diabetes Care, Vol.31,#8, Nov. 2007 UA ClnCatch+Micro w/rflx Cul t Reviewed date:06/13/2024 04:40:26 PM Interpretation: Performing Lab:[facility], [address] [place] [phone] Notes/Report: Urine, Clean Catch Color Urine Yellow Appearance Urine Clear PH 7.0 5.0-9.0 Glucose Urine UA Negative Negative mg/dL Urine Blood Negative Negative Specific Jasper - Urine 1.015 1.005-1.025 Urine Protein Negative Neg-Trace mg/dL Urine Ketones Negative Negative mg/dL Nitrite Urine Negative Negative Leukocyte Esterase Urine Negative Negative RBC Urine 0-2 0-2 /HPF WBC Urine 0-5 0-5 /HPF Squamous Epithelial Cell Urine 0-2 0-2 /HPF Bacteria Urine None Seen None Seen Hyaline Casts Urine 0-2 0-2 /LPF REASON FOR VISIT FASTING LABS Encounters Encounter Location Date Provider Diagnosis Kwame Diop MD [address] [place] [address] Drive [address] [place], [place] [phone] 06/12/2024 Kwame Diop Blood tests for rout ine general physical examination Z00.00 ; Essential hypertension I10 ; Vitamin B 12 deficiency E53.8 ; Prediabetes R73.09 and Pure hypercholesterolemia E78.00 Assessments Encounter Date Diagnosis (ICD Code) Assessment Notes Treatment Notes Treatment Clinical Notes Section Notes 06/12/[address] ine general physical examination (ICD-10 - Z00.00) 06/12/2024 Essential hypertensi on (ICD-10 - I10) 06/12/2024 Vitamin B 12 deficie ncy (ICD-10 - E53.8) 06/12/2024 Prediabetes (ICD-10 - R73.09) 06/12/2024 Pure hypercholesterolemia (ICD-10 - E78.00) Plan Of Treatment Next Appt Details Provider Name:Kwame Roth ier, 01/27/2025 10:15:00 AM, [address] [place] [address], [facility], [place], [place], [phone], Provider Name:Kwame Roth ier, 07/16/2025 08:00:00 AM, [address] [place] [address], [facility], [place], [place], [phone], Provider Name:Kwame Roth ier, 07/24/2025 11:00:00 AM, [address] [place] [address] Drive, [address], [place], [place], [phone], Progress Notes * Darci ASENCIO RDOB:[birth year] (79 yo M)Acc No.[id number]:06/12/2024 Progress Note Patient: Darci GARLAND Provider: Rojas Diop MD :1945 A ge:79 Y S ex:Male Date:06/12/2024 Address:[address] [place], [place] [phone] Subjective: * Chief Complaints: * 1 . FASTING LABS. * Medical History: Objective: * Vitals: Assessment: * Assessment: 1. B lood tests for routine general physical examination - Z00.00 (Primary) 2 .?Essential hypertension - I10 3 . V itamin B 12 deficiency - E53.8 ? 4 . P rediabetes - R73.09 5 . P ure hypercholesterolemia - E78.00? Plan: * Treatment: 2. E ssential hypertension L AB: Complete Blood Count Auto Diff (Collection Date & Time - 06/12/2024 08:15 AM) L AB: Comprehensive Howell. Panel Fast (Collection Date & Time - 06/12/2024 08:15 AM) L AB: Lipid Panel (Collection Date & Time - 06/12/2024 08:15 AM) L AB: PSA,Total (Free>4and<10) (Collection Date & Time - 06/12/2024 08:15 AM) L AB: Vitamin B12 and Folate (Collection Date & Time - 06/12/2024 08:15 AM) L AB: Microalbumin, Random (Collection Date & Time - 06/12/2024 08:15 AM) L AB: Hemoglobin A1c (Collection Date & Time - 06/12/2024 08:15 AM) L AB: UA ClnCatch+Micro w/rflx Cult (Collection Date & Time - 06/12/2024 08:15 AM) 3. V itamin B 12 deficiency L AB: Complete Blood Count Auto Diff (Collection Date & Time - 06/12/2024 08:15 AM) L AB: Comprehensive Howell. Panel Fast (Collection Date & Time - 06/12/2024 08:15 AM) L AB: Lipid Panel (Collection Date & Time - 06/12/2024 08:15 AM) L AB: PSA,Total (Free>4and<10) (Collection Date & Time - 06/12/2024 08:15 AM) L AB: Vitamin B12 and Folate (Collection Date & Time - 06/12/2024 08:15 AM) L AB: Microalbumin, Random (Collection Date & Time - 06/12/2024 08:15 AM) L AB: Hemoglobin A1c (Collection Date & Time - 06/12/2024 08:15 AM) L AB: UA ClnCatch+Micro w/rflx Cult (Collection Date & Time - 06/12/2024 08:15 AM) 4. P rediabetes L AB: Complete Blood Count Auto Diff (Collection Date & Time - 06/12/2024 08:15 AM) L AB: Comprehensive Howell. Panel Fast (Collection Date & Time - 06/12/2024 08:15 AM) L AB: Lipid Panel (Collection Date & Time - 06/12/2024 08:15 AM) L AB: PSA,Total (Free>4and<10) (Collection Date & Time - 06/12/2024 08:15 AM) L AB: Vitamin B12 and Folate (Collection Date & Time - 06/12/2024 08:15 AM) L AB: Microalbumin, Random (Collection Date & Time - 06/12/2024 08:15 AM) L AB: Hemoglobin A1c (Collection Date & Time - 06/12/2024 08:15 AM) L AB: UA ClnCatch+Micro w/rflx Cult (Collection Date & Time - 06/12/2024 08:15 AM) 5. P ure hypercholesterolemia L AB: Complete Blood Count Auto Diff (Collection Date & Time - 06/12/2024 08:15 AM) L AB: Comprehensive Howell. Panel Fast (Collection Date & Time - 06/12/2024 08:15 AM) L AB: Lipid Panel (Collection Date & Time - 06/12/2024 08:15 AM) L AB: PSA,Total (Free>4and<10) (Collection Date & Time - 06/12/2024 08:15 AM) L AB: Vitamin B12 and Folate (Collection Date & Time - 06/12/2024 08:15 AM) L AB: Microalbumin, Random (Collection Date & Time - 06/12/2024 08:15 AM) L AB: Hemoglobin A1c (Collection Date & Time - 06/12/2024 08:15 AM) L AB: UA ClnCatch+Micro w/rflx Cult (Collection Date & Time - 06/12/2024 08:15 AM) * Procedure Codes: 3 6415 VENIPUNCT, ROUTINE* * * The named appointment provid er may or may not be the originator of this progress note, and it is not deemed complete until electronically signed by the appointment provider. Sign off status: Pending * Provider: Rojas Diop MD Date: 0 06/12/2024 Generated for Yael hdez/Sudheer/eTjennyitting on: 1 12:39 PM EDT
--- OUTSIDE RECORDS SUMMARY | 2024-06-30 04:15 | XMS_ITS ---
Author Organization Kwame Diop MD Address [address] [place], [place] [phone] Care Team Providers Care Maintenance Groundskeeper Name Role Phone Kwame Diop Primary Care Provider Results Component Value Reference Range Notes PSA,Total (Free>4and<10) Reviewed date:06/30/2024 12:01:50 PM Interpretation: Performing Lab:[facility], [address] [place] [phone] Notes/Report: PSA,Total (Free>4and<10) 2.52 0.00-4.00 ng/mL A Free PSA was not [...] Gonzales Alinity i Chemiluminescent Microparticle Immunoassay (CMIA) REASON FOR VISIT Repeat PSA Encounters Encounter Location Date Provider Diagnosis Kwame Diop MD [address] [place], [place] [phone] 06/30/2024 Kwame Diop Rising PSA level R97.20 Assessments Encounter Date Diagnosis (ICD Code) Assessment Notes Treatment Notes Treatment Clinical Notes Section Notes 06/30/2024 Rising PSA level (ICD-10 - R97.20) Plan Of Treatment Next Appt Details Provider Name:Kwame nobles, 01/27/2025 10:15:00 AM, [address], [address], [facility] [place], [phone], Provider Name:Kwame Roth ier, 07/16/2025 08:00:00 AM, [address], [address], [place], [phone], Provider Name:Kwame Roth ier, 07/24/2025 11:00:00 AM, [address], [address], [place], [phone], Progress Notes * Darci ASENCIO RDOB:[birth year] (79 yo M)Acc No.[id number]:06/30/2024 Progress Note Patient: Darci GARLAND Provider: Rojas Diop MD :1945 A ge:79 Y S ex:Male Date:06/30/2024 Address:[address] [place], [place] [phone] Subjective: * Chief Complaints: * 1 . Repeat PSA. * Medical History: Objective: * Vitals: Assessment: * Assessment: 1. R ising PSA level - R97.20 (Primary) Plan: * Treatment: * Procedure Codes: 3 6415 VENIPUNCT, ROUTINE* * * The named appointment provid er may or may not be the originator of this progress note, and it is not deemed complete until electronically signed by the appointment provider. Sign off status: Pending * Provider: Rojas Diop MD Date: 0 06/30/2024 Generated for Yael hdez/Sudheer/eTransmitting on: 1 12:39 PM EDT
--- OUTSIDE RECORDS SUMMARY | 2024-07-22 06:30 | XMS_ITS ---
Author Organization Kwame Diop MD Address [address] [place], [place] [id number] Care Team Providers Care Director Sports Name Role Phone Kwame Diop Primary Care Provider [phone] Allergies No Known Allergies Results Component Value Reference Range Notes Occult Blood, Stool, Guaiac Reviewed date:07/22/2024 01:14:31 PM Interpretation:Negative Performing Lab: Notes/Report: Negative Occult Blood, Stool, Guaiac Neg REASON FOR VISIT ANNUAL EXAM Medications Medication SIG (Take, Route, Frequency, Duration) Notes Start Date End Date Status Atorvastatin Calcium 20 MG TAKE 1 TABLET BY MOUTH EVERY DAY Active amLODIPine Besylate 5 MG 2 tablet Orally Once a day 06/16/2022 Active Metoprolol Succinate ER 50 MG TAKE 1 TABLET BY MOUTH EVERY DAY Active Eliquis 5 MG as directed Orally T wice a day Active levETIRAcetam 500 MG 1 tablet Orally Twi ce a day Active Vitamin B12 TR 1000 MCG 1 tablet Orally Once a day Active Folic Acid 800 MCG 1 tablet Orally Once a day Active Tylenol 325 MG 1 tablet as needed Orally every 6 hrs Active Social History Tobacco Use: Social History Observation Description Date Details (start date - stop date) Never Smoker NA - NA Tobacco Use/Smoking Question Answer Notes Patient is a nonsmoker Additional Findings: Tobacco Non-User Cu rrent non-smoker, currently using no form of tobacco Alcohol Screen Question Answer Notes Did you have a drink containing alcohol in the p ast year? 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 ; Rising PSA level R97.20 ; Prediabetes R73.09 ; Pure hypercholesterolemia E78.00 ; Colon cancer screening Z12.11 and Depression screening Z13.31 Assessments Encounter Date Diagnosis (ICD Code) Assessment Notes Treatment Notes Treatment Clinical Notes Section Notes 07/22/2024 Essential hypertensi on (ICD-10 - I10) well controlled, will continue current regiment 07/22/2024 Annual physical exam (ICD-10 - Z00.00) labs reviewed and discussed with patient 07/22/2024 Alcohol abuse (ICD-1 0 - F10.10) no longer drinking 07/22/2024 Dementia due to medi hannah condition without behavioral disturbance (ICD-10 - F02.80) is due to his alcohol consumption in past 07/22/2024 Rising PSA level (ICD-10 - R97.20) pendinglab, will continue to monitor 07/22/2024 Prediabetes (ICD-10 - R73.09) stable, no need for medication at this time 07/22/2024 Pure hypercholesterolemia (ICD-10 - E78.00) stable, will continue current regiment 07/22/2024 Colon cancer screeni ng (ICD-10 - Z12.11) guaiac negative 07/22/2024 Depression screening (ICD-10 - Z13.31) negative screen Plan Of Treatment Medication Medication Name Sig Start Date Stop Date Notes Atorvastatin Calcium 20 MG TAKE 1 TABLET BY MOUTH EVERY DAY amLODIPine Besylate 5 MG 2 tablet Orally Once a day 2022 Metoprolol Succinate ER 50 MG TAKE 1 TAB LET BY MOUTH EVERY DAY Treatment Notes Assessment Notes Essential hypertension well controlled, will continue current regiment Annual physical exam labs reviewed and d iscussed with patient Alcohol abuse no longer drinking Dementia due to medical cond ition without behavioral disturbance is due to his alcohol consumption in past Rising PSA level pendinglab, will con tinue to monitor Prediabetes stable, no need for medication at this time Pure hypercholesterolemia stable, will c ontinue current regiment Colon cancer screening guaiac negative Depression screening negative screen Next Appt Details Provider Name:Kwame Roth ier, 01/27/2025 10:15:00 AM, [address] [place] [address], [address], [place], [place], [phone], Provider Name:Kwame Roth ier, 07/16/2025 08:00:00 AM, [address] [place] [address], [address], [place], [place], [id number], Provider Name:Kwame Roth ier, 07/24/2025 11:00:00 AM, [address] [place] [address], Suite [facility], [place], [place], [phone], Progress Notes * Darci ASENCIO RDOB:[birth year] (79 yo M)Acc No.[id number]:07/22/2024 Progress Notes Patient: Rojas Darci SWAIN Provider: Rojas Diop MD :1945 A ge:79 Y S ex:Male Date:07/22/2024 Address:[address] [place], [place] [id number] Subjective: * Chief Complaints: * A NNUAL EXAM * HPI: D epression Screening: PHQ-9 L ittle interest or pleasure in doing things N ot at all, F eeling down, depressed, or hopeless N ot at all, T rouble falling or staying asleep, or sleeping too much N ot at all, F eeling tired or having little energy N ot at all, P oor appetite or overeating N ot at all, F eeling bad about yourself or that you are a failure, or have let yourself or your family down N ot at all, T rouble concentrating on things, such as reading the newspaper or watching television N ot at all, M oving or speaking so slowly that other people could have noticed; or the opposite, being so fidgety or restless that you have been moving around a lot more than usual N ot at all, T houghts that you would be better off or of hurting yourself in some way N ot at all, T otal Score 0 . I nterpretation and Intervention D epression Screening Findings N egative, F ollow-Up for Depression : review of PHQ-9 found negative result, no follow-up needed. C ommunication Needs: Communication Needs D oes the patient have a hearing impairment N o, D oes the patient have a vision impairment? Y es, I f yes, what is the vision impairment? G lasses, D oes the patient have a cognition impairment? Y es. F all Risk: History H ave you had any falls with injury in the past year? N o, H ave you had two or more falls in the past year? N o. S MAKAYLA Questions: SDOH Questions I n the past year have you been worried about losing housing? N o, I n the past year have you or any family members you live with been unable to get any of the following when it was really needed? Check all that apply: F ood. S ymptom(s): patienti michael a 79 yo ,male here for annual visit with review of recent labs and follow up of chronic issues here for follow up. gets rodwdy with . sometimes he gets up in middle of night and goes downstairs. * ROS: G eneral/Constitutional: Change in appetite d enies. C hills d enies. F ever d enies. O phthalmologic: Blurred vision d enies. D ischarge d enies. P ain d enies. E NT: Decreased hearing d enies. S ore throat d enies.?Swollen glands d enies. E ndocrine: Cold intolerance d enies. E xcessive thirst d enies. H eat intolerance d enies. W eight loss d enies. R espiratory: Cough d enies. S hortness of breath at rest d enies. S hortness of breath with exertion d enies. W heezing d enies. C ardiovascular: Chest pain at rest d enies. C hest pain with exertion?denies. I rregular heartbeat d enies. S hortness of breath d enies. ? G astrointestinal: Abdominal pain d enies. C hange in bowel habits d enies. D iarrhea d enies. N ausea d enies. R ectal bleeding d enies. V omiting d enies . G enitourinary: Blood in urine d enies. D ifficulty urinating d enies. F requent urination d enies. M usculoskeletal: Painful joints d enies. W eakness d enies. ? S kin: Dry skin d enies. I tching d enies. D enies?Mole(s), changes in moles, new moles or any lesions of concern. D enies P hotosensitivity. R tom d enies. N eurologic: Dizziness d enies. F ainting d enies. H eadache?denies. * Medical History: * Surgical History: * Hospitalization/Major Diagno stic Procedure: * Family History: F ather: 81 yrs. M other: 81 yrs. 1 brother(s) , 2 sister(s) . 3 son(s) , 1 daughter(s) . . Father- Bone Cancer Mother- Cardiac , Denies mental health/substance abuse family history, Denies mental health/substance abuse family history, No pertinent family medical history, Denies mental health/substance abuse family history. * Social History: T obacco Use: T obacco Use/Smoking P jim is a n onsmoker, A dditional Findings: Tobacco Non-User C urrent non-smoker, currently using no form of tobacco. D rugs/Alcohol: A lcohol Screen D id you have a drink containing alcohol in the past year? N o, P oints 0 , I nterpretation N egative. P jim drinks a six pack QD no alcohol since per his . * Medications: T akingTylenol 325 MG Tablet 1 tablet as needed Orally every 6 hrs Folic Acid 800 MCG Tablet 1 tablet Orally Once a day Vitamin B12 TR 1000 MCG Tablet Extended Release 1 tablet Orally Once a day levETIRAcetam 500 MG Tablet 1 tablet Orally Twice a day Eliquis 5 MG Tablet as directed Orally Twice a day Metoprolol Succinate ER 50 MG Tablet Extended Release 24 Hour TAKE 1 TABLET BY MOUTH EVERY DAY amLODIPine Besylate 5 MG Tablet 2 tablet Orally Once a day Atorvastatin Calcium 20 MG Tablet TAKE 1 TABLET BY MOUTH EVERY DAY Medication List reviewed and reconciled with the patientTaking Tylenol 325 MG Tablet 1 tablet as needed Orally every 6 hrs Taking Folic Acid 800 MCG Tablet 1 tablet Orally Once a day Taking Vitamin B12 TR 1000 MCG Tablet Extended Release 1 tablet Orally Once a day Taking levETIRAcetam 500 MG Tablet 1 tablet Orally Twice a day Taking Eliquis 5 MG Tablet as directed Orally Twice a day Taking Metoprolol Succinate ER 50 MG Tablet Extended Release 24 Hour TAKE 1 TABLET BY MOUTH EVERY DAY Taking amLODIPine Besylate 5 MG Tablet 2 tablet Orally Once a day Taking Atorvastatin Calcium 20 MG Tablet TAKE 1 TABLET BY MOUTH EVERY DAY Medication List reviewed and reconciled with the patient * Allergies: N .K.D.A.yes[Allergies Verified] Objective: * Vitals: H t: 65.50, Wt: 153, BMI:25.07, BP:112/58, Wt-k.4. weight is up 4 pounds since 01-14-24. * P ast Orders: L ab:Hemoglobin A1c (Order Date - 06/12/2024) (Collection Date & Time - 06/12/2024 08:15 AM) Value Reference Range Hemoglobin A1c % 5.9 <6.0 - % Estimated Average Glucose 123 - mg/dL L ab:Microalbumin, Random (Order Date - 06/12/2024) (Collection Date & Time - 06/12/2024 08:15 AM) Value Reference Range Creatinine Urine 58.16 - mg/dL Microalbumin Urine 8.0 - mg/L Microalbum Creatinine Ratio Ur 13.7 <30 - ug/ mg cr L ab:Vitamin B12 and Folate (Order Date - 06/12/2024) (Collection Date & Time - 06/12/2024 08:15 AM) Value Reference Range Vitamin B12 1287 H 200-900 - pg/mL Folate 14.1 > or = 4.0 - ng/mL L ab:Lipid Panel (Order Date - 06/12/2024) (Collection Date & Time - 06/12/2024 08:15 AM) Value Reference Range Triglycerides 114 <150 - mg/dL Cholesterol 161 <200 - mg/dL LDL Cholesterol Calculated 90 <100 - mg/dL HDL Cholesterol 49 >40 - mg/dL L ab:Complete Blood Count Auto Diff (Order Date - 06/12/2024) (Collection Date & Time - 06/12/2024 08:15 AM) Value Reference Range White Blood Count 10.1 4.8-10.8 - X10*3/uL Red Blood Count 5.15 4.60-5.80 - X10*6/uL Hemoglobin 16.4 14.0-18.0 - g/dl Hematocrit 48.3 42.0-52.0 - % Mean Corpuscular Volume 93.8 80.0-98.0 - fL Mean Corpuscular Hemoglobin 31.8 27.0-33.0 - pg Mean Corpuscular HGB Conc 34.0 31.0-36.0 - g/ dl Red Cell Distribution Width 13.8 11.0-16.0 - % Platelet Count 209 160-400 - X10*3/uL Mean Platelet Volume 9.7 9.4-12.4 - fL Neutrophils Percent Auto 46.0 45-73 - % Imm Gran Pct Auto 0.9 H 0.0-0.4 - % Lymphocytes Percent Auto 39.2 20-40 - % Monocytes Percent Auto 10.9 2-11 - % Eosinophils Percent Auto 1.9 0-4 - % Basophils Percent Auto 1.1 0-2 - % NRBC Pct Auto 0.0 0.0-0.2 - /100WBC Neutrophils Absolute Auto 4.6 2.0-8.3 - x10* 3/uL Imm Gran Abs Auto 0.09 H 0.00-0.03 - X10*3/uL Lymphocytes Absolute Auto 4.0 1.2-4.9 - X10* 3/uL Monocytes Absolute Auto 1.1 0.1-1.2 - X10*3/ uL Eosinophils Absolute Auto 0.2 0.0-0.4 - X10* 3/uL Basophils Absolute Auto 0.1 0.0-0.2 - X10*3/ uL NRBC Abs Auto 0.000 0.0-0.012 - X10*3/uL L ab:Comprehensive [place]. Panel Fast (Order Date - 06/12/2024) (Collection Date & Time - 06/12/2024 08:15 AM) Value Reference Range Sodium 141 135-145 - mmol/L Bilirubin Total 1.2 H 0.0-1.0 - mg/dL Aspartate Amino Transferase 31 5-37 - U/L Alanine Aminotransferase 18 0-40 - U/L Total Protein 6.4 L 6.5-8.0 - g/dL Albumin Level 3.9 3.5-5.0 - g/dL Alkaline Phosphatase 84 39-117 - U/L Potassium 4.3 3.3-5.1 - mmol/L Chloride 107 96-108 - mmol/L Carbon Dioxide 27 22-29 - mmol/L Anion Gap 11 L 12-20 - Blood Urea Nitrogen 8 L 9-16 - mg/dL Creatinine 1.02 0.5-1.4 - mg/dL Estimated Glomerular Filt Rate > 60 - Glucose Fasting 94 60-99 - mg/dL Calcium 8.9 8.4-10.2 - mg/dL L ab:UA ClnCatch+Micro w/rflx Cult (Order Date - 06/12/2024) (Collection Date & Time - 06/12/2024 08:15 AM) Value Reference Range Color Urine Yellow - Appearance Urine Clear - PH 7.0 5.0-9.0 - Glucose Urine UA Negative Negative - mg/dL Urine Blood Negative Negative - Specific [place] - Urine 1.015 1.005-1.025 - Urine Protein Negative Neg-Trace - mg/dL Urine Ketones Negative Negative - mg/dL Nitrite Urine Negative Negative - Leukocyte Esterase Urine Negative Negative - RBC Urine 0-2 0-2 - /HPF WBC Urine 0-5 0-5 - /HPF Squamous Epithelial Cell Urine 0-2 0-2 - /HP F Bacteria Urine None Seen None Seen - Hyaline Casts Urine 0-2 0-2 - /LPF Lab:PSA,Total (Free>4and<10) * Collection Date 06/30/2024 06/12/2024 Collection Time 08:15 AM 08:15 AM Order Date 06/30/2024 06/12/2024 PSA,Total (Free>4and<10) 2.52 (Ref Range: 0.00-4.00 ng/mL) 2.49 (Ref Range: 0.00-4.00 ng/mL) * Examination: G eneral Examination: GENERAL APPEARANCE: w ell developed, well nourished, in no acute distress. HEAD: n ormocephalic, atraumatic. EYES: p upils equal, round, reactive to light and accommodation, sclera non-icteric. EARS: n ormal. ORAL CAVITY: m ucosa moist. THROAT: c lear. NECK/THYROID: n joesph supple, full range of motion, no cervical lymphadenopathy, no bruits. SKIN: w arm and dry, no suspicious lesions. HEART: r egular rate and rhythm, S1, S2 normal, no murmurs.? LUNGS: c lear to auscultation bilaterally. ABDOMEN: s oft, nontender, nondistended, bowel sounds present, normal, no organomegaly , no masses palpable. RECTAL EXAM: n ormal tone, no external hemorrhoids, no masses palpable, prostate enlarged but smooth, stool guaiac negative. MALE GENITOURINARY: c ircumcised, no penile lesions or discharge, no testicular mass. EXTREMITIES: n o clubbing, cyanosis, or edema. NEUROLOGIC: n onfocal, motor strength normal upper and lower extremities, sensory exam intact. Assessment: * Assessment: 1. A nnual physical exam - Z00.00 (Primary) 2 . E ssential hypertension - I10 3 . A lcohol abuse - F10.10 4 . D ementia due to medical condition without behavioral disturbance - F02.80 5 . R ising PSA level - R97.20 6. P rediabetes - R73.09 7 . P ure hypercholesterolemia - E78.00 8 . C olon cancer screening - Z12.11 9 . D epression screening - Z13.31 Plan: * Treatment: 2. E ssential hypertension Continue Metoprolol Succinate ER Tablet Extended Release 24 Hour, 50 MG, TAKE 1 TABLET BY MOUTH EVERY DAY; C ontinue amLODIPine Besylate Tablet, 5 MG, 2 tablet, Orally, Once a day. Notes: well controlled, will continue current regiment 3. A lcohol abuse Notes: no longer drinking 4. D ementia due to medical condition without behavioral disturbance Notes: is due to his alcohol consumption in past 5. R ising PSA level L AB: PSA,Total (Free>4and<10) (Ordered for 01/21/2025) Notes: pendinglab, will continue to monitor 6. P rediabetes Notes: stable, no need for medication at this time 7. P ure hypercholesterolemia Continue Atorvastatin Calcium Tablet, 20 MG, TAKE 1 TABLET BY MOUTH EVERY DAY. Notes: stable, will continue current regiment 8. C olon cancer screening L AB: Occult Blood, Stool, Guaiac (Collection Date & Time - 07/22/2024) N egative Value Reference Range O ccult Blood, Stool, Guaiac Neg Notes: guaiac negative??9.?Depression screening? Notes: negative screen?? * Procedure Codes: 8 2270 TEST FOR BLOOD, FECES * * Sign off status: Completed true * Provider: Rojas Diop MD Date: 0 07/22/2024 Generated for Yael hdez/Sudheer/eTransmitting on: 1 12:40 PM EDT History and Physical Notes * HPI (History of Present Illness) Category Sub-Category Detail Notes Category Not es Symptom(s) patienti michael carrasco 79 yo ,male here for annual visit with review of recent labs and follow up of chronic issues here for follow up. gets rodwdy with . sometimes he gets up in middle of night and goes downstairs. Depression Screening PHQ-9 Little inte rest or pleasure in doing things: Not at all Feeling down, depressed, or hopeless: No t at all Trouble falling or staying asleep, or sl eeping too much: Not at all Feeling tired or having little energy: N ot at all Poor appetite or overeating: Not at all Feeling bad about yourself o r that you are a failure, or have let yourself or your family down: Not at all Trouble concentrating on thi ngs, such as reading the newspaper or watching television: Not at all Moving or speaking so slowly that other people could have noticed; or the opposite, being so fidgety or restless that you have been moving around a lot more than usual: Not at all Thoughts that you would be b diana off or of hurting yourself in some way: Not at all Total Score: 0 Interpretation and Intervention Depression Radhae ryan Findings: Negative Follow-Up for Depression: : review of PH Q-9 found negative result, no follow-up needed SDOH Questions SDOH Questions In the past year have you been worried about losing housing?: No In the past year have you or any family members you live with been unable to get any of the following when it was really needed? Check all that apply:: Food Fall Risk History Have you had any falls with injury i n the past year?: No Have you had two or more falls in the year?: No Communication Needs Communication Needs Does the patient have a hearing impairment: No Does the patient have a vision impairmen t?: Yes If yes, what is the vision impairment?: Glasses Does the patient have a cognition impair ment?: Yes Examination Category Sub-Category Detail Notes Category Not es General Examination GENERAL APPEARANCE: well dev eloped, well nourished, in no acute distress HEAD: normocephalic, atrau matic EYES: pupils equal, round, reactive to light and accommodation, sclera non-icteric EARS: normal THROAT: clear NECK/THYROID: neck supple, full ra nge of motion, no cervical lymphadenopathy, no bruits HEART: regular rate and rhy thm, S1, S2 normal, no murmurs LUNGS: clear to auscultatio n bilaterally ABDOMEN: soft, nontender, non distended, bowel sounds present, normal, no organomegaly , no masses palpable NEUROLOGIC: nonfocal, motor stre ngth normal upper and lower extremities, sensory exam intact SKIN: warm and dry, no dorota picious lesions EXTREMITIES: no clubbing, cyanosi s, or edema MALE GENITOURINARY: circumcised, no peni le lesions or discharge, no testicular mass RECTAL EXAM: normal tone, no exte rnal hemorrhoids, no masses palpable, prostate enlarged but smooth, stool guaiac negative ORAL CAVITY: mucosa moist
--- OUTSIDE RECORDS SUMMARY | 2025-01-19 03:15 | XMS_ITS ---
Author Organization Kwame Diop MD Address [address] [place], [place] [id number] Care Team Providers Care Garbage Truck Dispatcher Name Role Phone Kwame Diop Primary Care Provider Results Component Value Reference Range Notes Liver Panel (Not yet reviewe d by provider) Interpretation: Performing Lab:[facility], [address] [place] [phone] Notes/Report: Bilirubin Total 2.2 0.0-1.0 mg/dL Bilirubin Direct 0.5 0.0-0.5 mg/dL Aspartate Amino Transferase 31 5-37 U/L Alanine Aminotransferase 9 0-40 U/L Total Protein 6.0 6.5-8.0 g/dL Albumin Level 3.9 3.5-5.0 g/dL Alkaline Phosphatase 100 39-117 U/L Glucose Fasting (Not yet rev iewed by provider) Interpretation: Performing Lab:[facility], [address] [place] [phone] Notes/Report: Glucose Fasting 95 60-99 mg/dL Lipid Panel with Reflex (Not yet reviewed by provider) Interpretation: Performing Lab:[facility], [address] [place] [phone] Notes/Report: Triglycerides 84 <150 mg/dL Desirable Triglyceride: less than 150 mg/dL Borderline High Triglyceride 150-199 mg/dL High Triglyceride: 200-499 mg/dL Very High Triglyceride: greater than or equal to 5OO mg/dL Cholesterol 117 <200 mg/dL Desirable Cholesterol: less than 200 mg/dL Borderline High Cholesterol: 200-239 mg/dL High Cholesterol: greater than 239 mg/dL LDL Cholesterol Calculated 67 <100 mg/dL Desirable LDL: less than 100 mg/dL Near Optimal/Above Optimal LDL: 110-129 mg/dL Borderline High LDL: 130-159 mg/dL High LDL: 160-189 mg/dL Very High LDL: greater than or equal to 190 mg/dL HDL Cholesterol 34 >40 mg/dL Desirable HDL: greater than 40 mg/dL Note: This HDL assay may give artificially low results in patients with liver disease. Hemoglobin A1c (Not yet revi ewed by provider) Interpretation: Performing Lab:[facility], [address] [place] [phone] Notes/Report: Hemoglobin A1c % 5.7 <6.0 % Hemoglobin A1C Reference Range Adults: 4.8 - 6.0 % Non diabetic: < 6.0 % Goal: < 7.0 % Additional Action Suggested: > 8.0 % Note: Hemoglobin A1c results are invalid for patients with abnormal amounts of HbF. Blood transfusions may impact the HbA1c concentration in the patient sample. Estimated Average Glucose 117 eAG = Estimated average glucose which is %A1C expressed as average glucose, using the formula of the D6X-Iofxake Average Glucose study (ADAG), Diabetes Care, Vol.31,#8, Nov. 2007 PSA,Total (Free>4and<10) Reviewed date:01/19/2025 12:36:43 PM Interpretation: Performing Lab:[facility], [address] [place] [phone] Notes/Report: PSA,Total (Free>4and<10) 2.51 0.00-4.00 ng/mL A Free PSA was not [...] Chemiluminescent Microparticle Immunoassay (CMIA) REASON FOR VISIT fasting lipids / PSA Encounters Encounter Location Date Provider Diagnosis Kwame Diop MD [address] [place] [address] [address] [place], [place] [phone] 01/19/2025 Kwame Diop Prediabetes R73.09 ; Pure hypercholesterolemia E78.00 and Rising PSA level R97.20 Assessments Encounter Date Diagnosis (ICD Code) Assessment Notes Treatment Notes Treatment Clinical Notes Section Notes 01/19/2025 Prediabetes (ICD-10 - R73.09) 01/19/2025 Pure hypercholesterolemia (ICD-10 - E78.00) 01/19/2025 Rising PSA level (IC D-10 - R97.20) Plan Of Treatment Pending Test Test Name Order Date Liver Panel 01/19/2025 Glucose Fasting 01/19/2025 Lipid Panel with Reflex 01/19/2025 Hemoglobin A1c 01/19/2025 Next Appt Details Provider Name:Kwame Alan Gonzalez ier, 01/27/2025 10:15:00 AM, [address] [place] [address], [address], [place], [place], [phone], Provider Name:Kwame Alan Paradiseanthony ier, 07/16/2025 08:00:00 AM, [address] [place] [address], [address], [place], [place], [phone], Provider Name:Kwame Alan Paradiseanthony ier, 07/24/2025 11:00:00 AM, [address], [address], [place], [place], [phone], Progress Notes * Darci ASENCIO RDOB:[birth year] (79 yo M)Acc No.[id number]:01/19/2025 Progress Note Patient: Darci GARLAND Provider: Rojas Diop MD :1945 A ge:79 Y S ex:Male Date:01/19/2025 Address:[address] [place], [place] [phone] Subjective: * Chief Complaints: * 1 . fasting lipids / PSA. * Medical History: Objective: * Vitals: Assessment: * Assessment: 1. P rediabetes - R73.09 (Primary) 2 . P ure hypercholesterolemia - E78.00? 3. R ising PSA level - R97.20 Plan: * Treatment: 2. P ure hypercholesterolemia L AB: Liver Panel (Collection Date & Time - 01/19/2025 07:15 AM) L AB: Glucose Fasting (Collection Date & Time - 01/19/2025 07:15 AM) L AB: Lipid Panel with Reflex (Collection Date & Time - 01/19/2025 07:15 AM) L AB: Hemoglobin A1c (Collection Date & Time - 01/19/2025 07:15 AM) 3. R ising PSA level L AB: Liver Panel (Collection Date & Time - 01/19/2025 07:15 AM) L AB: Glucose Fasting (Collection Date & Time - 01/19/2025 07:15 AM) L AB: Lipid Panel with Reflex (Collection Date & Time - 01/19/2025 07:15 AM) L AB: Hemoglobin A1c (Collection Date & Time - 01/19/2025 07:15 AM) L AB: PSA,Total (Free>4and<10) (Collection Date & Time - 01/19/2025 07:15 AM) * Procedure Codes: 3 6415 VENIPUNCT, ROUTINE* * * The named appointment provid er may or may not be the originator of this progress note, and it is not deemed complete until electronically signed by the appointment provider. Sign off status: Pending * Provider: Rojas Diop MD Date: 1 Generated for Yael hdez/Sudheer/Barryitting on: 12:40 PM EDT
[2025-01-19 11:27] LABS: Alanine Aminotransferase 9 U/L (0-40); Albumin Level 3.9 g/dL (3.5-5.0); Alkaline Phosphatase 100 U/L (39-117); Aspartate Amino Transferase 31 U/L (5-37); Cholesterol 117 mg/dL (<200); HDL Cholesterol 34 mg/dL (>40); Total Protein 6.0 g/dL (6.5-8.0); Triglycerides 84 mg/dL (<150)
[2025-01-19 11:48] LABS: PSA,Total (Free>4and<10) 2.51 ng/mL (0.00-4.00)
[2025-01-19 12:30] LABS: Reflex LDLD? No
--- OUTSIDE RECORDS SUMMARY | 2025-01-19 12:39 | XMS_ITS | Patient Health Record ---
Author Organization [facility] Address [address] [place] [address] Care Team Providers Care Golf Course Ranger Name Role Phone Kwame Diop MD Primary Care Provider Maged Kendall Unavailable [phone] Reason For Referral No Information Medications Medication SIG (Take, Route, Frequency, Duration) Notes Start Date End Date Status Colyte w Flavor Packs 240 GM as directed Orally as directed for 1 day(s) 07/30/2014 Active Atorvastatin Calcium 40 MG 1 tablet Oral ly Once a day Active Lisinopril 20 MG 1 tablet Orally Once a day Active Problems Problem Type SNOMED Code ICD Code Onset Dates Problem Status W/U Status Risk Notes Problem Pre-surgery evaluation (275882686) Other specified pre-operative examination (V72.83) Active confirmed Problem Colon cancer screening (258246956) Colon cancer screening (V76.51) Active confirmed Plan Of Treatment Future Test Test Name Order Date COLONOSCOPY 07/30/2014 Insurance Providers Payer Name Payer Address Payer Phone Subscriber Number Group Number Insured Name Patient Relationship to Insured Coverage Start Date Coverage End Date [facility] [address] [place], [place] [phone] [id number] BRITTNI ASENCIO Self - patient is the insured Medical (General) History Medical History History ICD Code Hypertension Denies HI,DM,CVA,Lung disease,renal dise ase Negative cardiac cath in approx 2007 Hyperlipidemia Surgical History Surgery Date(Month/Year) appendectomy tonsillectomy
--- OUTSIDE RECORDS SUMMARY | 2025-01-19 12:40 | XMS_ITS | Patient Health Record ---
Author Organization Kwame Diop MD Address [address] [place], [place] [id number] Care Team Providers Care Greenskeeper Head Name Role Phone Kwame Diop Primary Care Provider [phone] Allergies No Known Allergies Results Component Value Reference Range Notes Complete Blood Count Auto Di ff Reviewed date:06/13/2024 04:40:43 PM Interpretation: Performing Lab:[facility], [address] [place] [phone] Notes/Report: White Blood Count 10.1 4.8-10.8 X10*3/uL [...] NRBC Abs Auto 0.000 0.0-0.012 X10*3/uL Comprehensive Kemmerer. Panel Fa st Reviewed date:06/13/2024 04:43:55 PM Interpretation: Performing Lab:[facility], [address] [place] [address] Notes/Report: Sodium 141 135-145 mmol/L Potassium 4.3 [...] Panel Reviewed date:06/12/2024 12:42:39 PM Interpretation: Performing Lab:[facility], [address] [place] [address] Notes/Report: Triglycerides 114 <150 mg/dL Desirable Triglyceride: [...] (Free>4and<10) Reviewed date:06/16/2024 09:29:37 AM Interpretation: Performing Lab:[address] [phone] Notes/Report: PSA,Total (Free>4and<10) 2.49 0.00-4.00 ng/mL A [...] Folate Reviewed date:06/12/2024 04:35:20 PM Interpretation: Performing Lab:[facility], [address] [place] [phone] Notes/Report: Vitamin B12 1287 200-900 pg/mL NORMAL 200-900 PG/ML INDETERMINATE 160-199 PG/ML DEFICIENT < 160 PG/ML Folate 14.1 > or = 4.0 ng/mL Reference Values: > or = 4.0 ng/mL < 4.0 ng/mL suggests folate deficiency Methotrexate, aminopterin and folinic acid (leucovorin) are chemotherapeutic agents whose molecular structures are similar to folate; therefore, the Composite [employer] Worker folate assay cannot be used for patients using these drugs. Microalbumin, Random Reviewed date:06/12/2024 04:34:17 PM Interpretation: Performing Lab:[address] [phone] Notes/Report: Creatinine Urine 58.16 Microalbumin Urine 8.0 Microalbum/Creatinine Ratio Ur 13.7 <30 ug/mg cr Albumin/Creatinine Ratio Reference Ranges: Normal: < 30 ug/mg creatinine Microalbuminuria: 30 - 300 ug/mg creatinine Clinical Albuminuria: > 300 ug/mg creatinine Hemoglobin A1c Reviewed date:06/12/2024 12:42:31 PM Interpretation: Performing Lab:[facility], [address] [place] [phone] Notes/Report: Hemoglobin A1c % 5.9 <6.0 % [...] average glucose, using the formula of the G1M-Qaxwanu Average Glucose study (ADAG), Diabetes Care, Vol.31,#8, Nov. 2007 UA ClnCatch+Micro w/rflx Cul t Reviewed date:06/13/2024 04:40:26 PM Interpretation: Performing Lab:[facility], [address] [place] [phone] Notes/Report: Urine, Clean Catch Color Urine Yellow Appearance Urine Clear PH 7.0 5.0-9.0 Glucose Urine UA Negative Negative mg/dL Urine Blood Negative Negative Specific Odin - Urine 1.015 1.005-1.025 Urine Protein Negative Neg-Trace mg/dL Urine Ketones Negative Negative mg/dL Nitrite Urine Negative Negative Leukocyte Esterase Urine Negative Negative RBC Urine 0-2 0-2 /HPF WBC Urine 0-5 0-5 /HPF Squamous Epithelial Cell Urine 0-2 0-2 /HPF Bacteria Urine None Seen None Seen Hyaline Casts Urine 0-2 0-2 /LPF PSA,Total (Free>4and<10) Reviewed date:06/30/2024 12:01:50 PM Interpretation: Performing Lab:[facility], [address] [place] [phone] Notes/Report: PSA,Total (Free>4and<10) 2.52 0.00-4.00 ng/mL A [...] Gonzales Alinity i Chemiluminescent Microparticle Immunoassay (CMIA) Liver Panel (Not yet reviewe d by provider) Interpretation: Performing Lab:[facility], [address] [place] [phone] Notes/Report: Bilirubin Total 2.2 0.0-1.0 mg/dL Bilirubin Direct 0.5 0.0-0.5 mg/dL Aspartate Amino Transferase 31 5-37 U/L Alanine Aminotransferase 9 0-40 U/L Total Protein 6.0 6.5-8.0 g/dL Albumin Level 3.9 3.5-5.0 g/dL Alkaline Phosphatase 100 39-117 U/L Glucose Fasting (Not yet rev iewed by provider) Interpretation: Performing Lab:[facility], [address] [place] [phone] Notes/Report: Glucose Fasting 95 60-99 mg/dL Lipid Panel with Reflex (Not yet reviewed by provider) Interpretation: Performing Lab:[facility], [address] [place] [phone] Notes/Report: Triglycerides 84 <150 mg/dL Desirable Triglyceride: [...] yet revi ewed by provider) Interpretation: Performing Lab:[facility], [address] [place] [phone] Notes/Report: Hemoglobin A1c % 5.7 <6.0 % [...] average glucose, using the formula of the C0X-Oihtksl Average Glucose study (ADAG), Diabetes Care, Vol.31,#8, Nov. 2007 PSA,Total (Free>4and<10) Reviewed date:01/19/2025 12:36:43 PM Interpretation: Performing Lab:[address] [phone] Notes/Report: PSA,Total (Free>4and<10) 2.51 0.00-4.00 ng/mL A [...] Gonzales Alinity i Chemiluminescent Microparticle Immunoassay (CMIA) Occult Blood, Stool, Guaiac Reviewed date:07/22/2024 01:14:31 PM Interpretation:Negative Performing Lab: Notes/Report: Negative Occult Blood, Stool, Guaiac Neg SARS-CoV2/FLU/RSV Reviewed date:04/03/2024 04:41:51 PM Interpretation: Performing Lab:[facility], [address] [place] [phone] Notes/Report: Influenza A PCR NEGATIVE Negative Influenza B PCR NEGATIVE Negative Resp Syncy Virus RNA Qual PCR NEGATIVE Negative SARS COV2 PCR INHOUSE POSITIVE Negative All test results must be correlated with clinical findings. Negative results do not preclude SARS-CoV2, influenza A virus, influenza B virus and/or RSV infection and should not be used as the sole basis for treatment or other patient management decisions. Negative results must be combined with clinical observations, patient history, and epidemiological information. This test has not been evaluated for monitoring treatment of infection. This test has been authorized by the FDA under an Emergency Use Authorization (EUA) for use by authorized laboratories. Testing performed on the [employer] GeneXpert utilizing real-time RT-PCR. All SARS CoV2 and positive influenza A/B results are reported to [facility]. Hold Green Gel Reviewed date:06/30/2024 11:59:38 AM Interpretation: Performing Lab:[facility], [address] [place] [phone] Notes/Report: Hold Green Gel See Note Specimen held untested for 24 hours; Call to request Chemistry testing. Reason For Referral No Information Medications Medication SIG (Take, Route, Frequency, Duration) Notes Start Date End Date Status Metoprolol Succinate ER 50 MG TAKE 1 TABLET BY MOUTH EVERY DAY for 90 Active Atorvastatin Calcium 20 MG TAKE 1 TABLET BY MOUTH EVERY DAY Active amLODIPine Besylate 5 MG 2 tablet Orally Once a day 06/16/2022 Active Eliquis 5 MG as directed Orally T wice a day Active levETIRAcetam 500 MG 1 tablet Orally Twi ce a day Active Vitamin B12 TR 1000 MCG 1 tablet Orally Once a day Active Folic Acid 800 MCG 1 tablet Orally Once a day Active Tylenol 325 MG 1 tablet as needed Orally every 6 hrs Active Immunizations Vaccine Route Administration Date Status Comme nts Flu Vaccine IM Intramuscular 02/12/2012 Administered Tetanus Unknown 09/17/2008 Administered PPSV23 (Pnemovax) IM Intramuscular 08/27/2012 Administered Vitamin B12 Unknown 08/27/2012 Administered Vitamin B12 IM Intramuscular 09/26/2012 Administered Vitamin B12 IM Intramuscular 10/24/2012 Administered Vitamin B12 IM Intramuscular 11/28/2012 Administered Flu Vaccine IM Intramuscular 03/10/2013 Administered Vitamin B12 IM Intramuscular 03/18/2013 Administered Vitamin B12 IM Intramuscular 04/22/2013 Administered Vitamin B12 IM Intramuscular 05/20/2013 Administered Vitamin B12 IM Intramuscular 06/17/2013 Administered Vitamin B12 IM Intramuscular 07/15/2013 Administered Vitamin B12 IM Intramuscular 08/19/2013 Administered Flu Vaccine IM Intramuscular 03/30/2014 Administered Fluarix Quadrivalent IM Intramuscular 01/12/2015 Administe red Fluarix Quadrivalent IM Intramuscular 02/26/2017 Administe red Prevnar 13 IM Intramuscular 05/22/2017 Administered PPSV23 (Pnemovax) IM Intramuscular 06/10/2019 Administered SARS-COV-2 Pfizer Unknown 07/07/2020 Administered SARS-COV-2 Pfizer Unknown 07/28/2020 Administered SARS-COV-2 Pfizer Unknown 02/01/2021 Administered SARS-COV-2 Moderna Unknown 02/14/2022 Administered [facility] Fluarix Quadrivalent Unknown 01/13/2019 Refused Fluarix Quadrivalent Unknown 06/07/2020 Refused Influenza High Dose Unknown 01/14/2024 Refused Social History Tobacco Use: Social History Observation [...] 0 Interpretation Negative Section Notes: Patient drinks 2 30 packs a week Patient drinks 2 30 packs a week Patient drinks 2 30 packs a week Patient drinks 2 30 packs a week Patient drinks 2 30 packs a week Patient drinks a six pack QD Patient drinks a six pack QD no alcohol since per his Patient drinks a six pack QD no alcohol since per his Patient drinks a six pack QD no alcohol since per his Patient drinks a six pack QD no alcohol since per his Problems Problem Type SNOMED Code ICD Code Onset Dates Problem Status W/U Status Risk Notes Problem Atrial fibrillation (82515281) Atrial fibrillation (I48.91) Active confirmed Problem Thrombocytopenia (251080497) Thrombocytopenia (D69.6) Active confirmed Problem 97164309 Essential hypert ension (I10) Active confirmed Problem 8039970 Prediabetes (R73.09) Active confirmed Problem 957414100 Vitamin B 12 deficiency (E53.8) Active confirmed Problem 105822829 Abnormal LFTs (R79.89) Active confirm ed Problem 89878852 Alcohol abuse (F10.10) Active confirme d Problem 396417817 History of gout (Z87.39) Active confirmed Problem 84068706 Acute idiopathic gout of left foot (M10.072) Active confirmed Problem 770763867 High triglycerid es (E78.1) Active confirmed Problem Cardiomyopathy (85650008) Cardiomyopathy (I42.9) Active confirmed Problem 309882474 Pure hypercholesterolemia (E78.00) Active confirmed Problem 527337343 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) Active confirmed Problem 5316653 Alcoholism (F10.20) Active confirmed Problem Mild cognitive disorder (546033376) MCI (mild cognitive impairment) (G31.84) Active confirmed Problem 482084731 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, not intractable, 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 confirmed Problem 663014097 Memory deficit (R41.3) Active confirm ed Problem 721003917 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) Active confirmed Vital Signs Blood pressure diastolic 58 mm Hg 07/22/2024 mike ght is up 4 pounds since 01-14-24 Height 65.50 in 07/22/2024 weight is up 4 pounds since 01-14-24 Blood pressure systolic 112 mm Hg 07/22/2024 weig ht is up 4 pounds since 01-14-24 Weight 153 lbs 07/22/2024 weight is up 4 pounds since 01-14-24 BMI 25.07 kg/m2 07/22/2024 weight is up 4 pounds since 01-14-24 Encounters Encounter Location Date Provider Diagnosis Kwame Diop MD [address] [place] [id number] 06/12/2024 Kwame Diop Blood tests for rout ine general physical examination Z00.00 ; Essential hypertension I10 ; Vitamin B 12 deficiency E53.8 ; Prediabetes R73.09 and Pure hypercholesterolemia E78.00 Kwame Diop MD [address] [place] [address] Drive [address] [place] [address] [id number] 06/30/2024 Kwame Diop Rising PSA level R97 .20 Kwame Diop MD [address] [place] [address] [id number] 01/19/2025 Kwame Diop Prediabetes R73.09 ; Pure hypercholesterolemia E78.00 and Rising PSA level R97.20 Kwame Diop MD [address] [place] [address] [id number] 03/06/2024 Kwame Diop Acute idiopathic gou t of left foot M10.072 Kwame Diop MD [address] [place] [id number] 04/28/2024 Kwame Diop Bronchitis J40 Kwame Diop MD [address] [place] [id number] 07/22/2024 Kwame Diop Essential hypertensi on I10 [...] ine general physical examination (ICD-10 - Z00.00) 06/30/2024 Rising PSA level (ICD-10 - R97.20) 01/19/2025 Prediabetes (ICD-10 - R73.09) 03/06/2024 Acute idiopathic gou t of left foot (ICD-10 - M10.072) can't take indocin due to the eliquis so will use prednisone, patient verbalized understandingof medication and directions for use 04/28/2024 Bronchitis (ICD-10 - J40) patient verbalized understanding ofmedication and directions for use 07/22/2024 Essential hypertensi on (ICD-10 - I10) well controlled, will continue current regiment 07/22/2024 Annual physical exam (ICD-10 - Z00.00) labs reviewed and discussed with patient 06/12/2024 Essential hypertensi on (ICD-10 - I10) 01/19/2025 Pure hypercholesterolemia (ICD-10 - E78.00) 07/22/2024 Alcohol abuse (ICD-1 0 - F10.10) no longer drinking 06/12/2024 Vitamin B 12 deficie ncy (ICD-10 - E53.8) 01/19/2025 Rising PSA level (ICD-10 - R97.20) 07/22/2024 Dementia due to medi hannah condition without behavioral disturbance (ICD-10 - F02.80) is due to his alcohol consumption in past 06/12/2024 Prediabetes (ICD-10 - R73.09) 07/22/2024 Rising PSA level (ICD-10 - R97.20) pendinglab, will continue to monitor 06/12/2024 Pure hypercholesterolemia (ICD-10 - E78.00) 07/22/2024 Prediabetes (ICD-10 - R73.09) stable, no need for medication at this time 07/22/2024 Pure hypercholesterolemia (ICD-10 - E78.00) stable, will continue current regiment 07/22/2024 Colon cancer screeni ng (ICD-10 - Z12.11) guaiac negative 07/22/2024 Depression screening (ICD-10 - Z13.31) negative screen Plan Of Treatment Pending Test Test Name Order Date Electrocardiogram (EKG) 05/22/2017 Electrocardiogram (EKG) 02/16/2012 Electrocardiogram (EKG) 04/22/2015 Liver Panel 01/19/2025 Glucose Fasting 01/19/2025 Lipid Panel with Reflex 01/19/2025 Hemoglobin A1c 01/19/2025 Next Appt Details Provider Name:Kwame nobles, 01/27/2025 10:15:00 AM, [address] [place] [address], [address], [phone], Provider Name:Kwame nobles, 07/16/2025 08:00:00 AM, [address] [place] [address], [address], [phone], Provider Name:Kwame nobles, 07/24/2025 11:00:00 AM, [address] [place] [address], [address], [phone], Insurance Providers Payer Name Payer Address Payer Phone Subscriber Number Group Number Insured Name Patient Relationship to Insured Coverage Start Date Coverage End Date [facility] are [employer] [address] [address] [place] [address] [id number] Darci Paez Self - patient is the insured Medications Administered Medication Instructions Date of Administration Dosage Notes B12 04/17/2014 1 mL B12 05/19/2014 1 mL B12 06/15/2014 1 mL B12 07/21/2014 1 mL B12 08/18/2014 1 mL B12 09/15/2014 1 mL B12 10/06/2014 1 mL B12 12/15/2014 1 mL B12 01/12/2015 1 mL B12 10/26/2015 1 mL B12 05/27/2018 1 mL B12 06/04/2018 1 mL B12 06/10/2018 1 mL B12 06/17/2018 1 mL B12 06/24/2018 1 mL B12 07/01/2018 1 mL B12 07/08/2018 1 mL B12 07/15/2018 1 mL B12 07/22/2018 1 mL Medical (General) History Medical History History ICD Code cardiac cath 2008 with minimal disease n on obstructive discussed colonoscopy 2012 d iscussed colonoscopy again 2014; colonoscopy 09/14/[address] Rust
== END 2025-01-19 10:39 | disposition home or self-care (01) ==
LOC: HO.LNP 10:38
PROVIDERS: Visit Provider Internal Medicine
DX: Z12.5 Encounter for screening for malignant neoplasm of prostate (principal); E78.00 Pure hypercholesterolemia, unspecified; R73.09 Other abnormal glucose; R97.20 Elevated prostate specific antigen [PSA]
CPT/HCPCS: 80061; 80076; 82947; 83036; 84153